=== PATIENT | female | born 1960 | race Caucasian/White ===

== ENCOUNTER 2016-10-02 07:56 | Day surgery (SDC) | payer BC ==
[2016-09-29 10:14] VITALS: BMI 27.9
--- NOTE | 2016-10-02 06:08 | P.GSHP ---
History of Present Illness H&P Date: 10/02/16 DATE OF CONSULTATION: 09/06/2016 CHIEF COMPLAINT: Bariatric assessment. HISTORY OF PRESENT ILLNESS: Mimi Barbour is a 56-year-old female with an adjustable gastric band. Her highest weight prior to surgical intervention was 217 pounds. Her lowest weight was 151 wounds. Now her usual weight is at 155 pounds. Today she comes in weighing 170 pounds. Her ideal body weight for her 5 feet 5-3/4 inch frame is 149 pounds. She has maintained a 102 pound weight loss. Percent excess weight loss is 83%. She comes in after a previous history of panniculectomy done 2 years ago. She reports that her port has a tendency to dislodge. Now she reports pain along her port site. She denies any heartburn. She is eating increased junk food. She presents with concerns of adjustable gastric band port. Her body mass index from 44.3 down to less than 30. PAST MEDICAL HISTORY: 1. Morbid obesity. 2. Depression. PAST SURGICAL HISTORY: 1. History of adjustable gastric band placement. 2. Panniculectomy. MEDICATIONS: 1. Topamax. 2. Zoloft. ALLERGIES: 1. CODEINE. 2. PENICILLIN. SOCIAL HISTORY: Lifelong nontobacco user. FAMILY HISTORY: Consistent with morbid obesity. REVIEW OF SYSTEMS: CONSTITUTIONAL: Rumsey body weight of 149 pounds for a 5 foot 5-3/4 inch frame. Total weight loss is of 102 pounds, highest weight of 272 pounds. Percent excess weight loss of 83%. HEENT: Denies troubles with vision or hearing. No reports of dysphagia. ENDOCRINE: No reports of thyroid disorder or diabetes type 2, RESPIRATORY: Denies any obstructive sleep apnea or dyspnea on exertion. CARDIOVASCULAR: Denies any chest pain or heart attack. GASTROINTESTINAL: Denies any gastroesophageal reflux disease. No reports of blood in stools. MUSCULOSKELETAL: Denies any diffuse joint pain. NEURO: No reports of stroke or seizure disorder. PSYCH: No reports of depression or suicidal ideation. HEMATOLOGIC: Denies any easy bruising or bleeding. PHYSICAL EXAM: VITAL SIGNS: 98.0m, 54, 16, 140/65, 5 foot 5-3/4 inch frame, 170 pounds, body mass index 27.7. GENERAL: A 56-year-old female in no acute distress. HEENT: No scleral icterus. Extraocular movements grossly intact. Moist mucosa. NECK: Supple, no lymphadenopathy. CHEST: Nonlabored respirations. Equal bilateral excursions. CARDIOVASCULAR: Regular rate and rhythm. ABDOMEN: Soft, nontender. Nondistended. Palpable lap band port left upper quadrant with tenderness. No further erythema. she presents for further. MUSCULOSKELETAL: No clubbing, cyanosis, or edema. NEURO: No focal or from appropriate affect. Alert and oriented to person, place, and time. PSYCH: Appropriate affect. Alert and oriented to person, place, and time. LABS: Hemoglobin 12.9 down low elevated at cholesterol elevated at 289, LDL elevated at 179, HDL elevated at 101, thiamine low at 36. ASSESSMENT: 1. Morbid obesity due to excess calories, resolved. 2. Body mass index reduced from 44.3 down to 27.7. 3. History of adjustable gastric band. 4. Malfunction of adjustable gastric band port with pain. 5. Thiamine deficiency. 6. Hypercholesterolemia. PLAN: 1. Recommend thiamine supplement, particularly with an infusion. 2. As she presents with discomfort and trouble from her port, would recommend revision of her adjustable gastric band port. 3. Deep venous thrombosis prophylaxis. 4. Antibiotic prophylaxis. 5. Recommend taking multivitamins daily as well. Past Medical History Past Medical History: Osteoarthritis (OA), Sleep Apnea/CPAP/BIPAP Additional Past Medical History / Comment(s): past hx. sleep apnea-doesn't need any tx. for anymore since weight loss, migraines History of Any Multi-Drug Resistant Organisms: None Reported Past Surgical History: Bariatric Surgery, Hysterectomy, Joint Replacement, Orthopedic Surgery Additional Past Surgical History / Comment(s): right knee replaced, lap band, carpal tunnel filomena., panniculectomy, arthroscopy knee Past Anesthesia/Blood Transfusion Reactions: No Reported Reaction Past Psychological History: Anxiety Smoking Status: Former smoker Past Alcohol Use History: None Reported Additional Past Alcohol Use History / Comment(s): quit smoking 16 yrs. ago, on & off for 16 yrs. Past Drug Use History: None Reported - Past Family History Sister(s) Family Medical History: Deep Vein Thrombosis (DVT) Brother(s) Family Medical History: Deep Vein Thrombosis (DVT) Medications and Allergies Home Medications Medication Instructions Recorded Confirmed Type Sertraline [Zoloft] 100 mg PO BID 09/05/16 09/29/16 History Topiramate [Topamax] 100 mg PO BID 09/05/16 09/29/16 History Estradiol [Estradiol] 1 patch TRANSDERM WESA 09/29/16 09/29/16 History Allergies Allergy/AdvReac Type Severity Reaction Status Date / Time codeine Allergy Chest Pain Verified 09/29/16 09:51 Penicillins Allergy Rash/Hives Verified 09/29/16 09:51
[~2016-10-02 07:56] MED LIST: ACETAMINOPHEN IV (For NPO) 1,000 MG in EMPTY BAG 1 BAG IVPB ONE; CHLORHEXIDINE GLUCONATE 15 ML CUP MUCOUS MEM ONE; DEXAMETHASONE SOD PHOSPHATE 10 MG/ML 1 ML VIAL IV ONE; ENOXAPARIN 40 MG/0.4 ML SYRINGE SQ STA; LACTATED RINGERS 1,000 ML IV SCH; LIDOCAINE 1% 20 ML VIAL (10MG/ML) FOR IV START INTRADERMA PRN; ONDANSETRON 4 MG/2 ML VIAL IVP ONE; PANTOPRAZOLE 40 MG/10 ML VIAL IV STA; SCOPOLAMINE 1.5MG/72HR PATCH TRANSDERM ONE; ceFAZolin 2 GM in SODIUM CHLORIDE 0.9% 100 ML IVPB ONE; fentaNYL (PF) 50 MCG/ML 2 ML AMP IV PRN
[2016-10-02] MEDS ORDERED: LIDOCAINE 1% 20 ML VIAL (10MG/ML) FOR IV START INTRADERMA ONE (08:36)
[2016-10-02] MEDS ORDERED: MIDAZOLAM 2 MG/2 ML VIAL IVP ONE ×2 (09:03)
[2016-10-02] MEDS: BUPIVACAINE LIPOSOME/PF 1.3% 20 ML, BUPIVACAIN-EPI 0.5%-1:200,000 25 ML, SODIUM CHLORID... MISCELLANE ONE ×6 (09:22→09:58)
[2016-10-02] MEDS ORDERED: fentaNYL (PF) 50 MCG/ML 2 ML AMP ONE (09:23)
[2016-10-02] MEDS ORDERED: SUCCINYLCHOLINE CHLORIDE 100 MG/5 ML SYR IV ONE (09:23)
[2016-10-02] MEDS ORDERED: LIDOCAINE 1% INJ 10MG/ML (20 ML MDV) ONE (09:23)
[2016-10-02] MEDS ORDERED: NEOSTIGMINE 1 MG/ML 10 ML VIAL ONE (09:23)
[2016-10-02] MEDS ORDERED: ROCURONIUM BROMIDE 10 MG/ML 10 ML VIAL IV ONE (09:23)
[2016-10-02] MEDS ORDERED: MIDAZOLAM 2 MG/2 ML VIAL ONE (09:23)
[2016-10-02] MEDS ORDERED: GLYCOPYRROLATE 0.2 MG/ML 2 ML VIAL ONE (09:23)
[2016-10-02] MEDS ORDERED: PROPOFOL 10 MG/ML 20 ML VIAL IV ONE (09:23)
[2016-10-02] MEDS ORDERED: PHENYLEPHRINE-0.9% NACL SYG 1 MG/10 ML SYRINGE ONE (09:23)
[2016-10-02] MEDS ORDERED: LACTATED RINGERS 1,000 ML IV ONE (10:08)
--- NOTE | 2016-10-02 10:29 | P.PCN ---
Date of Procedure: 10/02/16 Preoperative Diagnosis: Chin of adjustable gastric band port, history of morbid obesity, history of adjustable gastric band Postoperative Diagnosis: Same Procedure(s) Performed: Operative intervention of adjustable gastric band port left upper quadrant, adjustment of gastric band 1 mL removed Anesthesia: KASIA, local Surgeon: Heather Quiles Estimated Blood Loss (ml): 1 Pathology: none sent Condition: stable Disposition: same day Operative Findings: Adjustable gastric band port while patient is sitting rubs against inferior rest of left costal margin, port adjusted 3 fingerbreadths along the inferior lateral portion, 5 cm oblique. 1 mL of fluid removed, to accommodate for postoperative swelling and prevention of postoperative nausea and vomiting
[2016-10-02 10:48] VITALS: TEMP 97.9
[2016-10-02 10:54] VITALS: RESP 16
[2016-10-02 11:59] VITALS: PULSE 60
[2016-10-02 12:21] VITALS: BP 105/59
--- NOTE | 2016-10-15 22:30 | P.OP ---
Date of Procedure: 10/02/16 Description of Procedure: DATE OF SERVICE: 10/02/2016 SURGEON: ZAIN CHRISTIE MD QUALITY ASSISTANT: NONE. PREOPERATIVE DIAGNOSES: 1. Malposition of adjustable gastric band port. 2. History of adjustable gastric band. 3. Prior history of morbid obesity, now resolved. 4. Overweight. 5. Body mass index of 27.3. 6. Left upper quadrant abdominal pain. POSTOPERATIVE DIAGNOSES: 1. Malposition of adjustable gastric band port. 2. History of adjustable gastric band. 3. Prior history of morbid obesity, now resolved. 4. Overweight. 5. Body mass index of 27.3. 6. Left upper quadrant abdominal pain. OPERATION: 1. Open revision of adjustable gastric band port left upper quadrant. 2. Adjustment of adjustable gastric band port removal of 1 mL normal saline. ANESTHESIA: General with 85 mL Exparel, Sensorcaine and normal saline mixture. ESTIMATED BLOOD LOSS: 1 mL. SPECIMENS REMOVED: None. COMPLICATIONS: None. INDICATIONS: Mimi Barbour is a 56-year-old female with prior history of laparoscopic adjustable gastric band done many years ago. She had a panniculectomy with repositioning of her adjustable gastric band port and has had left upper quadrant abdominal pain from the port site. Surgical intervention with repositioning of her port was described at length including the possibility of a new port placement. Benefits and risks were thoroughly reviewed. Informed consent was obtained. DESCRIPTION OF PROCEDURE: Patient was brought to the operating room, laid in supine position. After general induction, the abdomen had been prepped and draped in a standard sterile fashion. Prior to incision, a timeout protocol was confirmed with surgical team regarding the patient's name including procedures to be performed. Preoperative medications were also confirmed. Attention was brought to the abdomen whereby she had a previous panniculectomy site as well as the umbilicus was in the wrong anatomical position at least fingerbreadths above the anterior/superior iliac spine along the midline. The port was found within one fingerbreadth of the left costal margin. Preoperatively in the preop area, the patient's new port site was marked while she was sitting up at bedside. The skin was localized. Next along her previous longitudinal incision of the left upper quadrant, the skin was localized. A #15 blade was used to open her previous incision. The skin edges were elevated using Adson's. The subcutaneous tissue was dissected using electro-Bovie cautery. Next the port was palpated superiorly along the skin incision. The edge of the port was palpated and dissected free using hemostats. Electro- Bovie cautery was used without any injury to the actual port. The port was circumferentially dissected using hemostat, as well as blunt dissection. The port was released and brought out onto the skin. Please note that an Ioban draping was placed to avoid any contamination of the implant on the skin olga. The new port site was identified and a tunnel through the subcutaneous tissue along the fascia was prepared. A Marlex mesh was cut along the base of the port and attached using 0 Prolene at each quadrant. After the pocket had been developed, the adjustable gastric band port was adjusted. A minimum of 5 mL of normal saline was found within her port. One mL of fluid was removed to accommodate for postoperative swelling including minimize risk of postoperative nausea and vomiting. The port was placed along the new tunnel pocket of the left abdomen. The new port site was placed 3 fingerbreadths and lateral along the previous port site which measurement was consistent with 5 cm in oblique fashion. The port was positioned and the port was attached to the subcutaneous tissue and deep fascia using 0 Vicryl. The subcutaneous pocket was closed using 0 Vicryl. The dermis was reapproximated using 3-0 Vicryl in interrupted fashion. A 4-0 Monocryl in a running fashion was placed. Skin was cleansed and Dermabond was placed. Once dried, half-inch Steri-Strips were placed lengthwise. A total of 85 mL Exparel normal saline mixture was place for postop analgesia. Patient was transferred onto the bed and abdominal binder was applied. At the end of the procedure, needle, sponge, and instrument count had been verified correct by the surgical corsetier. The patient had tolerated the procedure well and was taken to the postanesthesia care unit in stable condition. FINDINGS: 1. Port near the left costal margin now repositioned approximately 3 fingerbreadths lower to accommodate for sitting. 2. No injury occurred to the adjustable gastric band port. 3. At least 5 mL of normal saline found in her port. 4. One mL of normal saline removed.
== END 2016-10-02 12:49 | disposition home or self-care (01) ==
LOC: OR 07:56
PROVIDERS: ATTEND Surgery Plastic and Reconstructive Surgery
DX: T85.628A Displacement of other specified internal prosthetic devices, implants and grafts, initial encounter (principal); Z98.84 Bariatric surgery status; E66.3 Overweight; Z68.27 Body mass index [BMI] 27.0-27.9, adult; F41.9 Anxiety disorder, unspecified; F32.9 Major depressive disorder, single episode, unspecified; Z79.899 Other long term (current) drug therapy; Z88.5 Allergy status to narcotic agent; Z88.0 Allergy status to penicillin
CPT/HCPCS: 43886; C1781; J2250; J1100; J2710; J0690; J2405; J2001; J1650; J3010; J0131; J2370; J0330; C9290; J2704; C9113

== ENCOUNTER → 2016-10-05 | Outpatient (CLI) | payer BC ==
[2016-10-05 12:08] VITALS: BP 120/58; PULSE 60; RESP 14; TEMP 98.4; BMI 27.6
--- NOTE | 2016-10-15 21:00 | P.PN ---
Progress Note - Text DATE OF SERVICE: 10/05/2016 CHIEF COMPLAINT: Follow up port revision. HISTORY OF PRESENT ILLNESS: Mimi Barbour is a 56-year-old female who is status post port revision of 10/02/2016. She is now postop day #3. Initially, she had moderate discomfort from her port, as it had rubbed against her left rib. Now she states that this is improved. She is able to walk and raise her hands and comb her hair without discomfort. She is wearing an abdominal binder. She reports overall soreness as to be expected. She has done extremely well with her weight loss, maintaining 102 pounds. Percent excess weight loss is 71%. PHYSICAL EXAM: VITAL SIGNS: 98.4, 60, 14, 120/58; 5 feet 5-3/4, 170 pounds. Body mass index 27.7. ABDOMEN: No signs of erythema or infection. No palpable seroma. Abdominal binder was reapplied. Her port site is well-attached and flushed along the abdominal wall. GENERAL: Well developed female in no acute distress. HEENT: No scleral icterus. Extraocular movements grossly intact. Moist mucosa. NECK: Supple, no lymphadenopathy. CHEST: Nonlabored respirations. Equal bilateral excursions. CARDIOVASCULAR: Regular rate and rhythm. MUSCULOSKELETAL: No clubbing, cyanosis, or edema. NEURO: No focal or from appropriate affect. Alert and oriented to person, place, and time. PSYCH: Appropriate affect. Alert and oriented to person, place, and time. ASSESSMENT: 1. History of morbid obesity due to excess calories, improved. 2. Body mass index reduced from 44.3 down to 27.7. 3. Status post port revision. 4. History of adjustable gastric band. PLAN: 1. She had 1 mL of fluid removed from her band at the time of the procedure. She did report having intermittent nausea which is likely secondary to edema from recent surgery. 2. Recommend adjustment in approximately 3 to 4 weeks as swelling around the port site should improve. 3. On exam, her port site is well-attached and flushed along the abdominal wall. 4. I have recommended wearing abdominal binder at all times to minimize discomfort. 5. Overall, she has done extremely well with her weight loss, maintaining 102 pounds. Percent excess weight loss is 71%.
== END | disposition home or self-care (01) ==
LOC: BARWHC3 11:16
PROVIDERS: ATTEND Surgery Plastic and Reconstructive Surgery
DX: Z48.815 Encounter for surgical aftercare following surgery on the digestive system (principal); Z98.84 Bariatric surgery status; E66.01 Morbid (severe) obesity due to excess calories; Z68.27 Body mass index [BMI] 27.0-27.9, adult
CPT/HCPCS: 99211

== ENCOUNTER → 2016-10-18 | Outpatient (CLI) | payer BC ==
[2016-10-18 14:45] VITALS: BP 109/53; PULSE 65; RESP 16; TEMP 98.1; BMI 28.0
--- NOTE | 2016-10-29 12:27 | P.PN ---
Progress Note - Text DATE OF SERVICE: 10/18/2016 CHIEF COMPLAINT: Followup band revision. HISTORY OF PRESENT ILLNESS: Mimi Barbour is a 56-year-old female who is status post revision of her port on 10/02/2016. She is now 2 weeks out. She actually comes in with concerns about irritation of her left rib. She has been wearing an abdominal binder at all times that provides some comfort. Upon her last visit over 1 week ago her nausea is now resolved. She no longer reports pain from her port site. She occasionally uses ibuprofen for pain. She is pending a trip on which she would like to eat as she likes and then have an adjustment following. Her highest weight for her 5-foot 5-3/4-inch frame is 305 pounds. Her ideal body weight is 149 pounds. Today she comes in weighing 172 pounds. She her last visit 2 weeks ago, she has actually gained 2.2 pounds. Percent excess weight loss is maintained at 85%. Body mass index has been reduced from 49.7 to 28. PHYSICAL EXAM: VITAL SIGNS: 98.1, 65, 16, 109/53, 5 feet 5-3/4 inches, 172 pounds. Body mass index of 28. GENERAL: Well-developed pleasant female in no acute distress. ABDOMEN: No redness or erythema over the port site. Port is well reapproximated onto the fascia. Pinpoint tenderness along the left costal margin, more consistent with placement of her abdominal binder. Her abdominal binder was placed. HEENT: No scleral icterus. Extraocular movements grossly intact. Moist mucosa. NECK: Supple, no lymphadenopathy. CHEST: Nonlabored respirations. Equal bilateral excursions. CARDIOVASCULAR: Regular rate and rhythm. MUSCULOSKELETAL: No clubbing, cyanosis, or edema. NEURO: No focal or from appropriate affect. Alert and oriented to person, place, and time. PSYCH: Appropriate affect. Alert and oriented to person, place, and time. ASSESSMENT: 1. History of adjustable gastric band port discomfort. 2. Revision of adjustable gastric band port. 3. History of morbid obesity due to excess calories, improved. 4. Body mass index reduced from 44.3 to 27.7. 5. Left costal margin pain. PLAN: 1. She did have 1 mL of fluid removed from her band. Her nausea is now resolved. She may benefit from adjustment; however, she has asked to defer this at this time. 2. Regarding her left rib pain, this is consistent with where her binder actually causing rubbing sensation. She has no signs of erythema or infection at her port site. 3. I have recommended band adjustment after her return from her trip.
== END | disposition home or self-care (01) ==
LOC: BARWHC3 13:59
PROVIDERS: ATTEND Surgery Plastic and Reconstructive Surgery
DX: Z48.815 Encounter for surgical aftercare following surgery on the digestive system (principal); Z98.84 Bariatric surgery status; Z68.27 Body mass index [BMI] 27.0-27.9, adult; R07.89 Other chest pain
CPT/HCPCS: 99211

== ENCOUNTER → 2016-11-09 | Outpatient (CLI) | payer BC ==
[2016-11-09 09:02] VITALS: BP 119/56; PULSE 54; RESP 16; TEMP 98.4; BMI 27.7
--- NOTE | 2016-12-10 17:34 | P.PN ---
Progress Note - Text DATE OF SERVICE: 11/09/2016 CHIEF COMPLAINT: Follow up port revision. HISTORY OF PRESENT ILLNESS: Mimi Barbour is a 56-year-old female who is status post revision of her port on 10/02/2016. She is now 1-1/2 months out. She does report intolerance to fatty foods including right upper quadrant epigastric abdominal pain. She also has a family history of gallbladder disorder. Now she presents for adjustment of her band. Her ideal body weight for a 5 foot 5-3/4 inch frame is 149 pounds. Her initial weight was 305 pounds. Today she comes in weighing 170 pounds. Total lifetime weight loss is 135 pounds. She has lost approximately 2 pounds since her evaluation 3 weeks ago. Body mass index is reduced from 49.7 down to 27.7. Total BMI point reduction is 22. Percent excess weight loss is 86%. PHYSICAL EXAM: VITAL SIGNS: 98.4, 54, 16, 119/56, 5 foot 5-3/4 inches frame, 170 pounds. Body mass index 27.7. ABDOMEN: Soft. No erythema or swelling noted along the port site. Incision well-granulated. GENERAL: Well-developed pleasant female in no acute distress. HEENT: No scleral icterus. Extraocular movements grossly intact. Moist mucosa. NECK: Supple, no lymphadenopathy. CHEST: Nonlabored respirations. Equal bilateral excursions. CARDIOVASCULAR: Regular rate and rhythm. MUSCULOSKELETAL: No clubbing, cyanosis, or edema. NEURO: No focal or from appropriate affect. Alert and oriented to person, place, and time. PSYCH: Appropriate affect. Alert and oriented to person, place, and time. ASSESSMENT: 1. History of adjustable gastric port discomfort/malfunction. 2. Status post revision of adjustable gastric band port. 3. Previous history of morbid obesity, now resolved. 4. Body mass index reduced from 49.7 down to 27.7. 5. Adjustment of adjustable gastric band. 6. Family history of gallbladder disease. PLAN: 1. Recommend adjustment of her band. 2. With her symptoms of fatty food intolerance including family history of gallbladder disease, I have asked her to be cautious fatty foods. 3. May need additional testing between a HIDA scan and an ultrasound of the gallbladder as well. 4. Recommend followup in approximately 2 to 3 weeks following her adjustment. PROCEDURE: Adjustment of gastric band. DESCRIPTION: After verbal consent, the patient was laid supine. Skin along the left upper quadrant was cleansed using ChloraPrep. Using a non-core 22-gauge Sung needle, the port was accessed. With sitting up and drinking water, her band was adjusted; 0.4 mL of fluid was added. Total of 4.4 mL of fluid confirmed. Patient had tolerated the procedure well. Recommended followup in approximately 2 to 3 weeks.
== END | disposition home or self-care (01) ==
LOC: BARWHC3 08:50
PROVIDERS: ATTEND Surgery Plastic and Reconstructive Surgery
DX: Z48.815 Encounter for surgical aftercare following surgery on the digestive system (principal); Z98.84 Bariatric surgery status; R11.2 Nausea with vomiting, unspecified; Z68.27 Body mass index [BMI] 27.0-27.9, adult; K91.2 Postsurgical malabsorption, not elsewhere classified; T85.848A Pain due to other internal prosthetic devices, implants and grafts, initial encounter; K95.09 Other complications of gastric band procedure
CPT/HCPCS: 99212

== ENCOUNTER → 2016-11-30 | Outpatient (CLI) | payer BC ==
[~2016-11-30] MED LIST changes: -ACETAMINOPHEN IV (For NPO) 1,000 MG in EMPTY BAG 1 BAG IVPB ONE; -CHLORHEXIDINE GLUCONATE 15 ML CUP MUCOUS MEM ONE; -DEXAMETHASONE SOD PHOSPHATE 10 MG/ML 1 ML VIAL IV ONE; -ENOXAPARIN 40 MG/0.4 ML SYRINGE SQ STA; -LACTATED RINGERS 1,000 ML IV SCH; -LIDOCAINE 1% 20 ML VIAL (10MG/ML) FOR IV START INTRADERMA PRN; -ONDANSETRON 4 MG/2 ML VIAL IVP ONE; -PANTOPRAZOLE 40 MG/10 ML VIAL IV STA; -SCOPOLAMINE 1.5MG/72HR PATCH TRANSDERM ONE; +SODIUM CHLORIDE 0.9% 1,000 ML IV NR; -ceFAZolin 2 GM in SODIUM CHLORIDE 0.9% 100 ML IVPB ONE; -fentaNYL (PF) 50 MCG/ML 2 ML AMP IV PRN
[2016-11-30 12:30] VITALS: BP 110/65; PULSE 65; TEMP 98.5; BMI 27.3
--- NOTE | 2016-11-30 15:50 | CT ---
EXAMINATION TYPE: CT abdomen pelvis w con DATE OF EXAM: 11/30/2016 3:39 PM HISTORY: Patient states possible fistula. Left lower quadrant pain and change in bowel habits per ord er. CT DLP: 1405mGycm Automated Exposure Control for Dose Reduction was Utilized. CONTRAST: CT scan of the abdomen and pelvis is performed without oral but with IV Contrast, patient injected wi th 100 mL of Omnipaque 300. COMPARISON: None. FINDINGS: LUNG BASES: No significant abnormality is appreciated. LIVER/GB: No significant abnormality is appreciated. PANCREAS: No significant abnormality is seen. SPLEEN: No significant abnormality is seen. ADRENALS: No significant abnormality is seen. KIDNEYS: Subcentimeter low dense lesion anteriorly mid pole level left kidney on series 7 image 30 is too small to further characterize per presumed benign. There is 2 mm nonobstructing calculus mid brittany e level right kidney on axial image 33 series 3. Occasional pelvic phlebolith is seen. No suspicious nondependent air in bladder is noted. BOWEL: The evaluation of bowel is suboptimal due to lack of enteric contrast. Lap band device is low in position roughly 2.7 cm from the diaphragmatic hiatus. The phi angle is roughly [address] ba nd slippage is suspected as there is gastric prominence above the band noted. There is no suspicious small or large bowel dilatation identified. No suspicious surrounding inflamma tory change is identified. UTERUS/ADNEXA: Uterus is surgically absent. LYMPH NODES: No greater than 1cm abdominal or pelvic lymph nodes are appreciated. OSSEOUS STRUCTURES: No significant abnormality is seen. OTHER: No significant additional abnormality is seen. IMPRESSION: No suspicious finding to suggest active bowel inflammation or fistulous communication to the bladder. CT findings suggest lap band slippage as noted above.
--- NOTE | 2016-12-01 08:17 | US ---
EXAMINATION TYPE: US gallbladder DATE OF EXAM: 11/30/2016 3:16 PM COMPARISON: on PACS CLINICAL HISTORY: R10.11 RUQ pain. Lap band modification Sep 2016. Nausea. EXAM MEASUREMENTS: Liver Length: 14.4 cm Gallbladder Wall: 0.1 cm CBD: 0.3 cm CHD: 0.3 cm Right Kidney: 9.9 x 4.7 x 4.8 cm TECHNOLOGIST IMPRESSION: Pancreas: tail not seen due to overlying bowel gas Liver: wnl Gallbladder: wnl The gallbladder wall measures 1.4 mm. Evidence for sonographic Canales's sign: neg CBD: wnl CHD: wnl Right Kidney: Lateral mid pole echogenic focus - 0.4 x 0.4 cm. Medial anechoic lesion at hilum - 1. 1 x 1.4 x 0.9 cm. Lesion in the hilum of the right kidney is likely an extrarenal pelvis. The echogenic focus within th e mid polar region of the right kidney does not shadow and may represent an angiomyolipoma. IMPRESSION: 1. NO ACUTE RIGHT UPPER QUADRANT ABNORMALITY. 2. RIGHT KIDNEY DESCRIBED ABOVE.
--- NOTE | 2016-12-31 07:18 | PN ---
DATE OF SERVICE: 11/30/2016 CHIEF COMPLAINT: Abdominal pain. HISTORY OF PRESENT ILLNESS: Mimi Barbour is a 56-year-old female who reports seeing her body bumper as she has noticed stool coming through her vagina. She has not had a previous colonoscopy. She reports increased abdominal pain. No reports or troubles with her band however. At her height of 5 feet 5 inches, her ideal body weight is 149 pounds. Her highest weight was 305 pounds. Today she comes in weighing 168 pounds. She has maintained 137-pound weight loss. Percent excess weight loss is 80%. She is only 19 pounds overweight. Body mass index is reduced from 49.7 down to 27.3. Total BMI point reduction is reduced by 22.4. She does have a family history of gallbladder disorder including severity of symptoms and now presents for further evaluation and management. PHYSICAL EXAMINATION: VITAL SIGNS: 98.5, 65, 16, 110/65, 5 foot 5-3/4 inches frame, 168 pounds. Body mass index 27.3. ABDOMEN: Left lower quadrant abdominal pain. No peritonitis. Port site showed no edema. No sign of infection or cellulitis. GENERAL: Well-developed pleasant female in no acute distress. HEENT: No scleral icterus. Extraocular movements grossly intact. Moist mucosa. NECK: Supple, no lymphadenopathy. CHEST: Nonlabored respirations. Equal bilateral excursions. CARDIOVASCULAR: Regular rate and rhythm. MUSCULOSKELETAL: No clubbing, cyanosis, or edema. NEURO: No focal or from appropriate affect. Alert and oriented to person, place, and time. PSYCH: Appropriate affect. Alert and oriented to person, place, and time. ASSESSMENT: 1. Left lower quadrant abdominal pain. 2. Probable diverticulitis. 3. 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 4. Family history of gallbladder disease. PLAN: 1. Recommend CT of the abdomen and pelvis as diverticulitis cannot be excluded. 2. Also would benefit from a lower endoscopy for colovaginal fistula. 3. I did discuss with her that with her symptoms, recommend treatment with ciprofloxacin for diverticulitis. 4. Also recommend follow-up with body bumper in the interim. 5. She does have a family history of gallbladder disorders and would recommend ultrasound of the gallbladder as well. [facility]ITALPadmaja
--- NOTE | 2017-01-04 06:40 | P.PN ---
Progress Note - Text DATE OF SERVICE: 11/30/2016 CHIEF COMPLAINT: Abdominal pain. 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 She has not had a previous colonoscopy. She reports increased abdominal pain. No reports or troubles with her band however. At her height of 5 feet 5 inches, her ideal body weight is 149 pounds. Her highest weight was 305 pounds. Today she comes in weighing 168 pounds. She has maintained 137-pound weight loss. Percent excess weight loss is 80%. She is only 19 pounds overweight. Body mass index is reduced from 49.7 down to 27.3. Total BMI point reduction is reduced by 22.4. She does have a family history of gallbladder disorder including severity of symptoms and now presents for further evaluation and management. PHYSICAL EXAMINATION: VITAL SIGNS: 98.5, 65, 16, 110/65, 5 foot 5-3/4 inches frame, 168 pounds. Body mass index 27.3. ABDOMEN: Left lower quadrant abdominal pain. No peritonitis. Port site showed no edema. No sign of infection or cellulitis. GENERAL: Well-developed pleasant female in no acute distress. HEENT: No scleral icterus. Extraocular movements grossly intact. Moist mucosa. NECK: Supple, no lymphadenopathy. CHEST: Nonlabored respirations. Equal bilateral excursions. CARDIOVASCULAR: Regular rate and rhythm. MUSCULOSKELETAL: No clubbing, cyanosis, or edema. NEURO: No focal or from appropriate affect. Alert and oriented to person, place, and time. PSYCH: Appropriate affect. Alert and oriented to person, place, and time. ASSESSMENT: 1. Left lower quadrant abdominal pain. 2. Probable diverticulitis. 3. 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 4. Family history of gallbladder disease. PLAN: 1. Recommend CT of the abdomen and pelvis as diverticulitis cannot be excluded. 2. Also would benefit from a lower endoscopy for colovaginal fistula. 3. I did discuss with her that with her symptoms, recommend treatment with ciprofloxacin for diverticulitis. 4. Also recommend follow-up with school age lead teacher in the interim. 5. She does have a family history of gallbladder disorders and would recommend ultrasound of the gallbladder as well.
== END | disposition home or self-care (01) ==
LOC: BARWHC3 12:16
PROVIDERS: ATTEND Surgery Plastic and Reconstructive Surgery
DX: Z48.815 Encounter for surgical aftercare following surgery on the digestive system (principal); E66.01 Morbid (severe) obesity due to excess calories; K57.32 Diverticulitis of large intestine without perforation or abscess without bleeding; R19.4 Change in bowel habit; K81.1 Chronic cholecystitis; N28.9 Disorder of kidney and ureter, unspecified; Z98.84 Bariatric surgery status
CPT/HCPCS: 76705; 74177; 99211; Q9967

== ENCOUNTER → 2016-11-30 | Outpatient (CLI) | payer BC ==
[~2016-11-30] MED LIST changes: -SODIUM CHLORIDE 0.9% 1,000 ML IV NR; +SODIUM CHLORIDE 0.9% 500 ML in EMPTY BAG 1 BAG IV PRN
[2016-11-30] MEDS: SODIUM CHLORIDE 0.9% 1,000 ML in EMPTY BAG 1 BAG IV PRN ×2 (12:00→13:15)
[2016-11-30 12:04] VITALS: BP 112/54; PULSE 53; RESP 18; TEMP 98.2
[2016-11-30 12:19] LABS: Basophils # (A) 0.1 k/uL (0-0.2); Basophils % (A) 1 %; CH 32.4; CHCM 33.5; Eosinophils # (A) 0.4 k/uL (0-0.7); Eosinophils % (A) 7 %; HCT 43.6 % (34.0-46.0); HDW 2.63; HGB 14.5 gm/dL (11.4-16.0); Luc # (Auto) 0.15; Luc % (Auto) 3; Lymphocytes # (A) 1.4 k/uL (1.0-4.8); Lymphocytes % (A) 25 %; MCH 32.3 pg (25.0-35.0); MCHC 33.3 g/dL (31.0-37.0); MCV 97.1 fL (80.0-100.0); Mean Platelet Volume 8.3; Monocytes # (A) 0.3 k/uL (0-1.0); Monocytes % (A) 5 %; Neutrophils # (A) 3.3 k/uL (1.3-7.7); Neutrophils % (A) 60 %; RBC 4.49 m/uL (3.80-5.40); RDW 13.2 % (11.5-15.5); WBC 5.5 k/uL (3.8-10.6)
[2016-11-30 12:33] LABS: ALT 27 U/L (9-52); AST 19 U/L (14-36); Alkaline Phosphatase 53 U/L (38-126); Anion Gap 8 mmol/L; Blood Urea Nitrogen 9 mg/dL (7-17); Calcium 9.5 mg/dL (8.4-10.2); Carbon Dioxide 28 mmol/L (22-30); Chloride 107 mmol/L (98-107); Glucose 92 mg/dL (74-99); Non-African American GFR(MDRD) >60 (>60 ml/min/1.73 sqM); Potassium 4.1 mmol/L (3.5-5.1); Sodium 143 mmol/L (137-145); Total Bilirubin 0.7 mg/dL (0.2-1.3); Total Protein 7.3 g/dL (6.3-8.2)
== END | disposition home or self-care (01) ==
LOC: BARWHC3 09:59
PROVIDERS: ATTEND Surgery Plastic and Reconstructive Surgery
DX: E66.01 Morbid (severe) obesity due to excess calories (principal); K57.92 Diverticulitis of intestine, part unspecified, without perforation or abscess without bleeding; K81.1 Chronic cholecystitis; E86.0 Dehydration
CPT/HCPCS: 80053; 85025; 96360; 96361

== ENCOUNTER → 2016-12-27 | Outpatient (CLI) | payer BC ==
[2016-12-27 15:56] VITALS: BP 109/70; PULSE 51; RESP 16; TEMP 97.8; BMI 27.3
--- NOTE | 2017-01-22 20:58 | P.PN ---
Progress Note - Text DATE OF SERVICE: 12/27/2016 CHIEF COMPLAINT: Lower abdominal pain. HISTORY OF PRESENT ILLNESS: Mimi Barbour is a 56-year-old female who reports a personal history of endometriosis including chronic pelvic pain. From her last visit a little over a month ago, she had left lower quadrant abdominal pain, with questionable features of diverticulitis. She reports that while being started on ciprofloxacin she had burning of the abdomen. She denies any diarrhea. She reports change in bowel habits. She has not had a previous colonoscopy. Now she presents for further evaluation and management. PAST MEDICAL HISTORY: 1. Morbid obesity, now resolved. 2. Depression. 3. Endometriosis. 4. Sleep apnea. 5. Osteoarthritis. PAST SURGICAL HISTORY: 1. History of adjustable gastric band placement. 2. Panniculectomy. 3. Revision of port of her adjustable gastric band. MEDICATIONS: 1. Topamax. 2. Zoloft. ALLERGIES: 1. CODEINE. 2. PENICILLIN. SOCIAL HISTORY: Lifelong nontobacco user. FAMILY HISTORY: Consistent with morbid obesity. REVIEW OF SYSTEMS: CONSTITUTIONAL: [place] body weight of 149 pounds for her 5 feet 5-3/4 inch frame. Initial weight of 305 pounds. Maintained weight loss of over 86%. GASTROINTESTINAL: Reports change in bowel habits, including stool through her vagina. PSYCH: History of depression without recent suicidal ideation. RESPIRATORY: History of obstructive sleep apnea. HEENT: Denies troubles with vision or hearing. No reports of dysphagia. ENDOCRINE: No reports of thyroid disorder or diabetes type 2, CARDIOVASCULAR: Denies any chest pain or heart attack. MUSCULOSKELETAL: Denies any diffuse joint pain. NEURO: No reports of stroke or seizure disorder. HEMATOLOGIC: Denies any easy bruising or bleeding. PHYSICAL EXAM: VITAL SIGNS: 97.8, 51, 16, 109/70, 5 foot 5-3/4 inch, 183 pounds. Body mass index of 27.3. ABDOMEN: Soft, nontender, without any palpable incisional hernias. Also new onset mobility of her port. GENERAL: A 56-year-old female in no acute distress. HEENT: No scleral icterus. Extraocular movements grossly intact. Moist mucosa. NECK: Supple, no lymphadenopathy. CHEST: Nonlabored respirations. Equal bilateral excursions. CARDIOVASCULAR: Regular rate and rhythm. MUSCULOSKELETAL: No clubbing, cyanosis, or edema. NEURO: No focal or from appropriate affect. Alert and oriented to person, place, and time. PSYCH: Appropriate affect. Alert and oriented to person, place, and time. STUDIES: CT of the abdomen and pelvis was reviewed in detail with imaging, alongside with her . Findings demonstrated no acute colitis of the descending colon. Interestingly enough, her band position was found to be prolapsed, consistent with gastric prolapse. Band slippage also identified. No evidence of bowel obstruction noted. Ultrasound of the gallbladder was negative for gallstones. CT scan confirmed no evidence of angiolipoma of the kidneys or adrenal glands. ASSESSMENT: 1. Left lower quadrant abdominal pain. 2. Change in bowel habits. 3. History of endometriosis. 4. Family history of gallbladder disease. PLAN: 1. On her CT scan there is a new finding of adjustable gastric band slippage and prolapse. I discussed with her symptoms of gastric slippage including increased gastroesophageal reflux disease and epigastric abdominal pain, which she finally had disclosed to me alongside with her . At this time she does not want any additional procedures done to her band. 2. With her change in bowel habits and negative findings of diverticulitis on her CT scan, recommend lower endoscopy for further evaluation and management. Per the patient and her , they are seeking more urgent upper and lower endoscopy, which will be arranged. 3. With her history of endometriosis, I recommended follow up with her histopathology technician for additional evaluation. 4. Further recommendations are pending completion of upper and lower endoscopy.
== END | disposition home or self-care (01) ==
LOC: BARWHC3 14:31
PROVIDERS: ATTEND Surgery Plastic and Reconstructive Surgery
DX: Z48.815 Encounter for surgical aftercare following surgery on the digestive system (principal); R19.4 Change in bowel habit; K31.89 Other diseases of stomach and duodenum; K95.09 Other complications of gastric band procedure; N80.9 Endometriosis, unspecified; F32.9 Major depressive disorder, single episode, unspecified; Z88.8 Allergy status to other drugs, medicaments and biological substances; Z88.0 Allergy status to penicillin; Z68.27 Body mass index [BMI] 27.0-27.9, adult
CPT/HCPCS: 99211

== ENCOUNTER 2017-01-01 08:33 | Day surgery (SDC) | payer BC ==
[2016-12-29 10:26] VITALS: BMI 27.9
--- NOTE | 2017-01-01 07:19 | P.GSHP ---
History of Present Illness H&P Date: 01/01/17 CHIEF COMPLAINT: Colon screen HISTORY OF PRESENT ILLNESS: The patient is a 56-year-old female who presents for first colon screen. Lower endoscopy was offered for further evaluation and management. PAST MEDICAL HISTORY: Please see list. PAST SURGICAL HISTORY: Please see list. MEDICATIONS: Please see list. ALLERGIES: Please see list. SOCIAL HISTORY: No illicit drug use FAMILY HISTORY: No reports of Crohn disease or ulcerative colitis. REVIEW OF ORGAN SYSTEMS: CONSTITUTIONAL: No reports of fevers or chills. PHYSICAL EXAM: VITAL SIGNS: Stable GENERAL: Well-developed pleasant in no acute distress. HEENT: No scleral icterus. Extraocular movements grossly intact. Moist buccal mucosa. NECK: Supple without lymphadenopathy. CHEST: Unlabored respirations. Equal bilateral excursions. CARDIOVASCULAR: Regular rate and rhythm. Distal 2+ pulses. ABDOMEN: Soft, nontender, nondistended. MUSCULOSKELETAL: No clubbing, cyanosis, or edema. ASSESSMENT: 1. Colon screen. PLAN: 1. Recommend proceeding with a lower endoscopy Past Medical History Past Medical History: Osteoarthritis (OA), Sleep Apnea/CPAP/BIPAP Additional Past Medical History / Comment(s): past hx. sleep apnea-doesn't need any tx. for anymore since weight loss, migraines, chronic diarrhea, left lower abd. pain History of Any Multi-Drug Resistant Organisms: None Reported Past Surgical History: Bariatric Surgery, Hysterectomy, Joint Replacement, Orthopedic Surgery Additional Past Surgical History / Comment(s): right knee replaced, lap band, carpal tunnel filomena., panniculectomy, arthroscopy knee Past Anesthesia/Blood Transfusion Reactions: No Reported Reaction Past Psychological History: Anxiety Smoking Status: Former smoker Past Alcohol Use History: None Reported Additional Past Alcohol Use History / Comment(s): quit smoking 16 yrs. ago, on & off for 16 yrs. Past Drug Use History: None Reported - Past Family History Sister(s) Family Medical History: Deep Vein Thrombosis (DVT) Brother(s) Family Medical History: Deep Vein Thrombosis (DVT) Medications and Allergies Home Medications Medication Instructions Recorded Confirmed Type Sertraline [Zoloft] 100 mg PO BID 09/05/16 12/29/16 History Topiramate [Topamax] 100 mg PO BID 09/05/16 12/29/16 History Estradiol [Estradiol] 1 patch TRANSDERM WESA 09/29/16 12/29/16 History Cholecalciferol (Vitamin D3) 10,000 unit PO DAILY 12/29/16 12/29/16 History [Vitamin D3] Allergies Allergy/AdvReac Type Severity Reaction Status Date / Time codeine Allergy Chest Pain Verified 12/29/16 10:05 Penicillins Allergy Rash/Hives Verified 12/29/16 10:05
[~2017-01-01 08:33] MED LIST changes: +LACTATED RINGERS 1,000 ML IV SCH; +LIDOCAINE 1% 20 ML VIAL (10MG/ML) FOR IV START INTRADERMA PRN; -SODIUM CHLORIDE 0.9% 500 ML in EMPTY BAG 1 BAG IV PRN
[2017-01-01 08:52] VITALS: TEMP 97
[2017-01-01] MEDS ORDERED: PROPOFOL 10 MG/ML 20 ML VIAL IV ONE (09:17)
[2017-01-01 09:43] VITALS: RESP 16
--- NOTE | 2017-01-01 09:48 | P.PCN ---
Date of Procedure: 01/01/17 Description of Procedure: PREOPERATIVE DIAGNOSIS: Colonoscopy screening. POSTOPERATIVE DIAGNOSIS: Colonoscopy screening. OPERATION: Colonoscopy to the ascending colon. SURGEON: Heather Quiles MD. ANESTHESIA: MAC. INDICATIONS: The patient is a 56-year-old female who presents for her first colonoscopy screening. Benefits and risks were described and informed consent was obtained. DESCRIPTION OF PROCEDURE: The patient had undergone Gatorade, MiraLAX and Dulcolax prep. He had been brought into the operating room and laid in the left lateral decubitus position. After adequate intravenous sedation, the rectum was examined with 2% lidocaine jelly. No external hemorrhoids were encountered. The rectal tone was within normal limits. No lesions were palpated in the rectal vault. An Olympus colonoscope was advanced to the ascending colon. She had moderate redundant sigmoid colon prohibiting clear view of the cecum and ileocecal valve. The prep was excellent with clear visualization of the mucosal folds. The scope was removed with visualization of each mucosal fold. No scattered diverticulosis was encountered. No colonic polyps were found. No evidence of focal colitis was found. Retroflexion of the scope demonstrated grade 1 internal hemorrhoids without active bleeding or inflammation. The colon was desufflated. The patient had tolerated the procedure well. Withdrawal time was over 6 minutes. FINDINGS: Internal hemorrhoids, grade 1 No external prolapsed hemorrhoids. No arteriovenous malformations. No adenomatous polyps. No focal colitis. No diverticulosis. Colonoscope to ascending colon. RECOMMENDATIONS: Lower endoscopy in 5 to 10 years or sooner for symptoms. Plan - Discharge Summary Discharge Medication List Sertraline [Zoloft] 100 mg PO BID 09/05/16 [History] Topiramate [Topamax] 100 mg PO BID 09/05/16 [History] Estradiol [Estradiol] 1 patch TRANSDERM WESA 09/29/16 [History] Omeprazole 40 mg PO DAILY #30 capsule. 12/27/16 [Rx] Cholecalciferol (Vitamin D3) [Vitamin D3] 10,000 unit PO DAILY 12/29/16 [History ] Imitrex(Unknown Dose) 1 tab PO DIRECTED PRN 01/01/17 [History] Follow up Appointment(s)/Referral(s): Heather Quiles MD [STAFF PHYSICIAN] - 01/16/17 ([facility]) Patient Instructions/Handouts: *[facility] - (Anesthesia) Endoscopy Discharge Instructions Discharge Disposition: HOME SELF-CARE
[2017-01-01 09:59] VITALS: BP 100/61; PULSE 61
== END 2017-01-01 10:51 | disposition home or self-care (01) ==
LOC: ORWHC2ENDO 08:33
PROVIDERS: ATTEND Surgery Plastic and Reconstructive Surgery
DX: Z12.11 Encounter for screening for malignant neoplasm of colon (principal); K64.0 First degree hemorrhoids; Q43.8 Other specified congenital malformations of intestine; M19.90 Unspecified osteoarthritis, unspecified site; F39 Unspecified mood [affective] disorder; G47.30 Sleep apnea, unspecified; K21.9 Gastro-esophageal reflux disease without esophagitis; F41.9 Anxiety disorder, unspecified; Z79.899 Other long term (current) drug therapy; Z88.5 Allergy status to narcotic agent; Z88.0 Allergy status to penicillin; Z87.891 Personal history of nicotine dependence
CPT/HCPCS: J2704; G0121

== ENCOUNTER → 2017-01-25 | Outpatient (CLI) | payer BC ==
[2017-01-25 13:19] VITALS: BP 108/72; PULSE 53; RESP 20; TEMP 97; BMI 27.6
--- NOTE | 2017-03-16 11:44 | P.PN ---
Progress Note - Text DATE OF SERVICE: 01/25/2017 CHIEF COMPLAINT: History of abdominal pain. HISTORY OF PRESENT ILLNESS: Mimi Barbour is a 56-year-old female who is status post lapband port revision from 10/02/2016. She is almost 4 months out. She comes in now with progressive abdominal pain. As a result of her abdominal pain, she is now evaluating for a band to sleeve or band to bypass. She has completed additional imaging. PAST MEDICAL HISTORY: 1. Morbid obesity, now resolved. 2. Depression. 3. Endometriosis. 4. Sleep apnea. 5. Osteoarthritis. PAST SURGICAL HISTORY: 1. History of adjustable gastric band placement. 2. Panniculectomy. 3. Revision of port of her adjustable gastric band port. MEDICATIONS: 1. Topamax. 2. Zoloft. 3. Omeprazole. 4. Imitrex. 5. Estradiol. ALLERGIES: 1. CODEINE. 2. PENICILLIN. SOCIAL HISTORY: Lifelong nontobacco user. FAMILY HISTORY: Consistent with morbid obesity. REVIEW OF ORGAN SYSTEMS: CONSTITUTIONAL: [place] body weight for 149 pounds. Height of 5 feet 5-3/4 inches. Initial weight 305 pounds. Current weight of 170 pounds. She has maintained a 135-pound weight loss. Percent excess weight loss of 87%. Body mass index reduced from 49.7 down to 27.6. She has gained 2 pounds in approximately one month. She is only 21 pounds overweight. GASTROINTESTINAL: No reports of intractable nausea and vomiting. No reports of diarrhea. PSYCH: History of depression without recent suicidal ideation. RESPIRATORY: History of obstructive sleep apnea. HEENT: Denies troubles with vision or hearing. No reports of dysphagia. ENDOCRINE: No reports of thyroid disorder or diabetes type 2, CARDIOVASCULAR: Denies any chest pain or heart attack. MUSCULOSKELETAL: Denies any diffuse joint pain. NEURO: No reports of stroke or seizure disorder. HEMATOLOGIC: Denies any easy bruising or bleeding. PHYSICAL EXAM: VITAL SIGNS: 97, 53, 20, 108/72, 5 feet 5-3/4 inches, 170 pounds. Body mass index 27.6. ABDOMEN: Soft. Minimal tenderness along the epigastrium. Port palpated along the previous incision of the left upper quadrant. GENERAL: Well developed female in no acute distress. HEENT: No scleral icterus. Extraocular movements grossly intact. Moist mucosa. NECK: Supple, no lymphadenopathy. CHEST: Nonlabored respirations. Equal bilateral excursions. CARDIOVASCULAR: Regular rate and rhythm. MUSCULOSKELETAL: No clubbing, cyanosis, or edema. NEURO: No focal or from appropriate affect. Alert and oriented to person, place, and time. PSYCH: Appropriate affect. Alert and oriented to person, place, and time. STUDIES: Recent CT of the abdomen and pelvis had confirmed malposition of her band consistent with slippage. Kidney stones noted along the right. Ultrasound of the gallbladder also reviewed consistent with no evidence of stone. ASSESSMENT: 1. Morbid obesity due to excess calories, now resolved. 2. Body mass index reduced from 49.7 and 27.6. 3. Complications of adjustable gastric band. 4. Abdominal pain. PLAN: 1. With complication of her band, I do recommend that she will need surgical intervention. 2. Options including revision of her band to sleeve or gastric bypass was described. 3. She has elected for possible revision to a sleeve gastrectomy. 4. With a history of abdominal pain along the epigastrium would recommend evaluation of an upper endoscopy as well. 5. Per patient's request, she has elected of no removal of her band at this time.
== END | disposition home or self-care (01) ==
LOC: BARWHC3 11:02
PROVIDERS: ATTEND Surgery Plastic and Reconstructive Surgery
DX: Z48.815 Encounter for surgical aftercare following surgery on the digestive system (principal); K95.09 Other complications of gastric band procedure; R10.84 Generalized abdominal pain; Z68.27 Body mass index [BMI] 27.0-27.9, adult
CPT/HCPCS: 99211

== ENCOUNTER 2017-03-07 08:05 | Day surgery (SDC) | payer BC ==
[2017-03-02 13:15] VITALS: BMI 28.3
[~2017-03-07 08:05] MED LIST changes: -LACTATED RINGERS 1,000 ML IV SCH
[2017-03-07] MEDS ORDERED: LACTATED RINGERS 1,000 ML IV ONE ×2 (08:13→10:01)
[2017-03-07] MEDS ORDERED: PROPOFOL 10 MG/ML 20 ML VIAL IV ONE (08:43)
[2017-03-07] MEDS ORDERED: MIDAZOLAM 2 MG/2 ML VIAL ONE (08:43)
[2017-03-07] MEDS ORDERED: fentaNYL (PF) 50 MCG/ML 2 ML AMP ONE (08:43)
[2017-03-07] MEDS ORDERED: LIDOCAINE 1% INJ 10MG/ML (20 ML MDV) ONE (08:43)
--- NOTE | 2017-03-07 08:46 | P.GSHP ---
History of Present Illness H&P Date: 03/07/17 CHIEF COMPLAINT: GERD HISTORY OF PRESENT ILLNESS: The patient is a 56-year-old female who presents reports gastroesophageal reflux disease. Upper endoscopy was offered for further evaluation and management. PAST MEDICAL HISTORY: Please see list. PAST SURGICAL HISTORY: Please see list. MEDICATIONS: Please see list. ALLERGIES: Please see list. SOCIAL HISTORY: No illicit drug use FAMILY HISTORY: No reports of Crohn disease or ulcerative colitis. REVIEW OF ORGAN SYSTEMS: CONSTITUTIONAL: No reports of fevers or chills. GI: Denies any blood in stools or constipation. PHYSICAL EXAM: VITAL SIGNS: Stable GENERAL: Well-developed and pleasant in no acute distress. HEENT: No scleral icterus. Extraocular movements grossly intact. Moist buccal mucosa. NECK: Supple without lymphadenopathy. CHEST: Unlabored respirations. Equal bilateral excursions. CARDIOVASCULAR: Regular rate and rhythm. Distal 2+ pulses. ABDOMEN: Soft, nondistended. MUSCULOSKELETAL: No clubbing, cyanosis, or edema. ASSESSMENT: 1. Gastroesophageal reflux disease PLAN: 1. Recommend proceeding with an upper endoscopy Past Medical History Past Medical History: GERD/Reflux, Osteoarthritis (OA), Sleep Apnea/CPAP/BIPAP Additional Past Medical History / Comment(s): Hx of sleep apnea (resolved with wt loss), migraines., states having nausea and vomiting. History of Any Multi-Drug Resistant Organisms: None Reported Past Surgical History: Bariatric Surgery, Hysterectomy, Joint Replacement, Orthopedic Surgery, Tonsillectomy Additional Past Surgical History / Comment(s): Total right knee, Lap Band and Revision., panniculectomy., filomena carpal tunnel., knee arthroscopy., colonoscopy. Past Anesthesia/Blood Transfusion Reactions: No Reported Reaction Past Psychological History: Anxiety Smoking Status: Former smoker Past Alcohol Use History: None Reported Additional Past Alcohol Use History / Comment(s): SMOKED LESS THAN 1 PPD., QUIT 16 YRS AGO (2000). SMOKED APPROX 16 YEARS. Past Drug Use History: None Reported - Past Family History Sister(s) Family Medical History: Deep Vein Thrombosis (DVT) Brother(s) Family Medical History: Deep Vein Thrombosis (DVT) Medications and Allergies Home Medications Medication Instructions Recorded Confirmed Type Sertraline [Zoloft] 100 mg PO BID 09/05/16 03/07/17 History Topiramate [Topamax] 100 mg PO BID 09/05/16 03/07/17 History Estradiol [Estradiol] 1 patch TRANSDERM WESA 09/29/16 03/07/17 History Imitrex(Unknown Dose) 1 tab PO DIRECTED PRN 01/01/17 03/07/17 History Cholecalciferol [Vitamin D3] 5,000 unit PO DAILY 03/02/17 03/07/17 History Allergies Allergy/AdvReac Type Severity Reaction Status Date / Time codeine Allergy Chest Pain Verified 03/07/17 08:14 Penicillins Allergy Rash/Hives Verified 03/07/17 08:14 Surgical - Exam Vital Signs Temp 97.2 F L 03/07/17 08:21
[2017-03-07] MEDS ORDERED: NALOXONE 0.4 MG/ML 1 ML VIAL IV PRN (09:26)
--- NOTE | 2017-03-07 09:31 | P.PN ---
Progress Note - Text Patient completed upper endoscopy with finding of gastric band prolapse with some element of slippage. Moderate edema found along the stomach. Recommend immediate admission for urgent removal of an adjustable gastric band including IV fluid hydration.
[2017-03-07 10:30] LABS: Basophils % (A) 1 %; CH 32.4; CHCM 33.1; Eosinophils # (A) 0.1 k/uL (0-0.7); Eosinophils % (A) 2 %; HCT 40.4 % (34.0-46.0); HDW 2.42; HGB 12.7 gm/dL (11.4-16.0); Luc % (Auto) 2; Lymphocytes # (A) 1.2 k/uL (1.0-4.8); Lymphocytes % (A) 27 %; MCH 30.9 pg (25.0-35.0); MCHC 31.4 g/dL (31.0-37.0); MCV 98.4 fL (80.0-100.0); Monocytes # (A) 0.3 k/uL (0-1.0); Monocytes % (A) 6 %; Neutrophils # (A) 2.7 k/uL (1.3-7.7); Neutrophils % (A) 62 %; RDW 13.7 % (11.5-15.5); WBC 4.4 k/uL (3.8-10.6); WBC (Perox) 4.63
[2017-03-07] MEDS ORDERED: SUMAtriptan SUCCINATE 6 MG/0.5 ML VIAL SQ STA ×3 (10:34→21:48)
[2017-03-07 10:44] LABS: ALT 28 U/L (9-52); AST 19 U/L (14-36); Alkaline Phosphatase 51 U/L (38-126); Amylase 40 U/L (30-110); Anion Gap 7 mmol/L; Blood Urea Nitrogen 10 mg/dL (7-17); Calcium 8.5 mg/dL (8.4-10.2); Carbon Dioxide 26 mmol/L (22-30); Chloride 107 mmol/L (98-107); Glucose 101 mg/dL (74-99); Magnesium 1.9 mg/dL (1.6-2.3); Non-African American GFR(MDRD) >60 (>60 ml/min/1.73 sqM); Phosphorous 3.2 mg/dL (2.5-4.5); Potassium 4.5 mmol/L (3.5-5.1); Sodium 140 mmol/L (137-145); Total Bilirubin 0.6 mg/dL (0.2-1.3); Total Protein 6.1 g/dL (6.3-8.2)
[2017-03-07] MEDS: LACTATED RINGERS 1,000 ML IV SCH (10:45)
[2017-03-07] MEDS ORDERED: SODIUM CHLORIDE 0.9% 2,000 ML IV ONE (17:59)
[2017-03-07] MEDS ORDERED: ACETAMINOPHEN TAB 325 MG TAB PO PRN (21:58)
[2017-03-07] MEDS: SODIUM CHLORIDE 0.45% 1,000 ML IV SCH ×2 (22:45→22:49)
[2017-03-08] MEDS: SODIUM CHLORIDE 0.45% 1,000 ML IV SCH ×2 (05:54→19:49)
[2017-03-08] MEDS: LACTATED RINGERS 1,000 ML IV SCH (06:09)
[2017-03-08 07:29] LABS: Anion Gap 6 mmol/L; Blood Urea Nitrogen 7 mg/dL (7-17); Calcium 8.6 mg/dL (8.4-10.2); Carbon Dioxide 24 mmol/L (22-30); Chloride 113 mmol/L (98-107); Glucose 93 mg/dL (74-99); Magnesium 1.8 mg/dL (1.6-2.3); Non-African American GFR(MDRD) >60 (>60 ml/min/1.73 sqM); Potassium 4.1 mmol/L (3.5-5.1); Sodium 143 mmol/L (137-145)
[2017-03-08] MEDS ORDERED: ACETAMINOPHEN IV (For NPO) 1,000 MG in EMPTY BAG 1 BAG IVPB STA (07:34)
[2017-03-08] MEDS: PANTOPRAZOLE 40 MG/10 ML VIAL IV SCH (08:12)
[2017-03-08] MEDS: ENOXAPARIN 40 MG/0.4 ML SYRINGE SQ SCH ×2 (08:17→13:28)
[2017-03-08] MEDS ORDERED: SUMAtriptan SUCCINATE 6 MG/0.5 ML VIAL SQ STA (13:08)
[2017-03-08] MEDS ORDERED: ACETAMINOPHEN IV (For NPO) 1,000 MG in EMPTY BAG 1 BAG IVPB ONE (14:13)
[2017-03-08] MEDS ORDERED: IMITREX PO PRN (18:25)
[2017-03-08] MEDS: CHOLECALCIFEROL 1,000 UNIT TAB PO SCH (20:34)
[2017-03-08] MEDS: TOPIRAMATE 100 MG TAB PO SCH (20:34)
[2017-03-08] MEDS: SERTRALINE 100 MG TAB PO SCH (20:34)
--- NOTE | 2017-03-08 21:33 | P.PN ---
Progress Note - Text Patient seen and evaluated. Her migraine is now resolved. Recommend proceeding with removal of adjustable gastric band secondary to prolapse.
[2017-03-09] MEDS: SODIUM CHLORIDE 0.45% 1,000 ML IV SCH ×2 (03:57→14:13)
--- NOTE | 2017-03-09 07:36 | P.HPADDEND ---
H&P Addendum H&P Addendum Date: 03/09/17 Patient presents with history of adjustable gastric band prolapse and symptomatic with nausea and vomiting. Upper endoscopy also demonstrated finding. She now reports resolution of her migraines. She also complains of intermittent right upper quadrant abdominal pain. May benefit from right upper quadrant ultrasound. We'll proceed with adjustable gastric band removal including all components.
[2017-03-09] MEDS ORDERED: IV FLUID CONTINUATION 1,000 ML IV ONE (08:04)
[2017-03-09] MEDS: ONDANSETRON 4 MG/2 ML VIAL IVP PRN ×2 (08:19→11:48)
[2017-03-09] MEDS ORDERED: CLINDAMYCIN 900 MG in DEXTROSE 5% IN WATER 50 ML IVPB ONE ×2 (08:50)
[2017-03-09] MEDS ORDERED: ACETAMINOPHEN IV (For NPO) 1,000 MG in EMPTY BAG 1 BAG IVPB ONE (08:50)
[2017-03-09] MEDS ORDERED: LACTATED RINGERS 1,000 ML IV ONE ×2 (09:00→10:56)
[2017-03-09] MEDS ORDERED: NON-FORMULARY DRUG (Omeprazole [Omeprazole] 40 MG) PO SCH (09:00)
[2017-03-09] MEDS: ENOXAPARIN 40 MG/0.4 ML SYRINGE SQ SCH (09:04)
[2017-03-09] MEDS ORDERED: PROPOFOL 10 MG/ML 20 ML VIAL IV ONE (09:31)
[2017-03-09] MEDS ORDERED: ePHEDrine 50 MG/ML 1 ML AMP ONE (09:31)
[2017-03-09] MEDS ORDERED: MIDAZOLAM 2 MG/2 ML VIAL ONE (09:31)
[2017-03-09] MEDS ORDERED: NEOSTIGMINE 1 MG/ML 10 ML VIAL ONE (09:31)
[2017-03-09] MEDS ORDERED: LIDOCAINE 1% INJ 10MG/ML (20 ML MDV) ONE (09:31)
[2017-03-09] MEDS ORDERED: SUCCINYLCHOLINE CHLORIDE 100 MG/5 ML SYR IV ONE (09:31)
[2017-03-09] MEDS ORDERED: fentaNYL (PF) 50 MCG/ML 2 ML AMP ONE (09:31)
[2017-03-09] MEDS ORDERED: GLYCOPYRROLATE 0.2 MG/ML 2 ML VIAL ONE (09:31)
[2017-03-09] MEDS ORDERED: ROCURONIUM BROMIDE 10 MG/ML 10 ML VIAL IV ONE (09:31)
[2017-03-09] MEDS ORDERED: BUPIVACAIN-EPI 0.5%-1:200,000 30 ML VIAL SQ ONE (09:58)
--- NOTE | 2017-03-09 11:03 | P.PCN ---
Date of Procedure: 03/09/17 Preoperative Diagnosis: Gastric band prolapse, intractable nausea and vomiting, abdominal pain Postoperative Diagnosis: Same, posterior gastric prolapse, complication adjustable gastric band Procedure(s) Performed: Laparoscopic removal of adjustable gastric band and all components, intraoperative EGD Implants: Anesthesia: GETA, local Surgeon: Heather Quiles Estimated Blood Loss (ml): 30 Pathology: other (Adjustable gastric band and all components including fibrotic tissue) Condition: stable Disposition: floor Indications for Procedure: Operative Findings: 1. Posterior gastric prolapse of adjustable gastric band with moderate involvement of the superior pole stomach. 2. Scope demonstrating no full-thickness injury to the stomach. 3. Moderate scar tissue about old generation gastric band. 4. Ports including mesh excised from the abdominal wall. 5. [place] drain applied along subcutaneous tissues to minimize risk for postoperative seroma. 6. Abdominal binder placed. 7. 5 mm trocar placed to previous port site. Description of Procedure:
[2017-03-09 11:38] VITALS: RESP 16
[2017-03-09] MEDS ORDERED: diphenhydrAMINE 50 MG/ML 1 ML VIAL IVP ONE (11:49)
[2017-03-09] MEDS ORDERED: KETOROLAC 30 MG/ML 1 ML VIAL IVP SCH (12:00)
[2017-03-09] MEDS: TOPIRAMATE 100 MG TAB PO SCH (14:13)
[2017-03-09] MEDS: PANTOPRAZOLE 40 MG/10 ML VIAL IV SCH (14:13)
[2017-03-09] MEDS: SERTRALINE 100 MG TAB PO SCH (14:13)
[2017-03-09] MEDS: CHOLECALCIFEROL 1,000 UNIT TAB PO SCH (14:14)
[2017-03-09] MEDS ORDERED: LACTATED RINGERS 1,000 ML IV SCH (14:40)
[2017-03-09] MEDS ORDERED: DEXAMETHASONE SOD PHOSPHATE 10 MG/ML 1 ML VIAL IV ONE (14:40)
[2017-03-09] MEDS ORDERED: ONDANSETRON 4 MG/2 ML VIAL IVP ONE (14:40)
[2017-03-09] MEDS ORDERED: fentaNYL (PF) 50 MCG/ML 2 ML AMP IV PRN (14:40)
[2017-03-09] MEDS ORDERED: SCOPOLAMINE 1.5MG/72HR PATCH TRANSDERM ONE (14:40)
[2017-03-09 14:46] VITALS: BP 140/62; PULSE 75; TEMP 97.3
--- NOTE | 2017-03-09 17:16 | P.PN ---
Progress Note - Text Patient seen and evaluated. She reports no pain. Her nausea and epigastric abdominal pain is completely resolved. Patient is clear from a surgical standpoint for discharge for follow-up in the bariatric center in 4 days. She'll wear her abdominal binder at all times. Dressing to be discontinued in the office.
[2017-03-10] MEDS ORDERED: ESTRADIOL TRANSDERM SCH (18:25)
--- NOTE | 2017-03-19 09:01 | P.PCN ---
Date of Procedure: 03/07/17 Preoperative Diagnosis: Postoperative Diagnosis: Procedure(s) Performed: Implants: Indications for Procedure: Operative Findings: Description of Procedure: PREOPERATIVE DIAGNOSIS: Gastroesophageal reflux disease. Previous history of morbid obesity. History of adjustable gastric band. Dysphagia due to solid foods. Nausea and vomiting. Epigastric abdominal pain. POSTOPERATIVE DIAGNOSIS: Gastroesophageal reflux disease. Previous history of morbid obesity. History of adjustable gastric band. Dysphagia due to solid foods. Nausea and vomiting. Epigastric abdominal pain. Gastric prolapse of adjustable gastric band with features of gastric slippage. Gastritis, chronic without active bleeding. OPERATION: Esophagogastroduodenoscopy with biopsies along antrum. SURGEON: Heather Quiles MD ANESTHESIA: MAC. INDICATIONS: The patient is a 56-year-old female who presents with a history epigastric abdominal pain including nausea and vomiting and history of adjustable gastric band. Benefits and risks of the procedure were described. Informed consent was obtained. DESCRIPTION: The patient was brought into the endoscopy suite and laid in the left lateral decubitus position. An Olympus gastroscope was passed along the posterior oropharynx down to the distal esophagus where the squamocolumnar junction was encountered at 37 cm from the incisors. The stomach was entered and moderate bile and food was found. Additional findings are listed below. Biopsies with cold forceps were obtained of the antrum. The first through third portion of the duodenum was examined and unremarkable. Retroflexion of the scope confirmed Hill grade 2 lower esophageal valve. No full-thickness erosion of her adjustable gastric band was found.The squamocolumnar junction demostrated LA grade B erosive esophagitis. The stomach was desufflated. The patient tolerated the procedure well. FINDINGS: Squamocolumnar junction 37 cm from the incisors. Diaphragmatic hiatus at 43 cm. Hiatal hernia 6 cm. Moderate dilation of gastric pouch consistent with slippage and prolapse. Hill grade 2 lower esophageal valve. LA grade B erosive esophagitis. No active duodenitis. No evidence of full-thickness gastric band erosion. Hyperemia along remnant stomach with biopsies obtained. RECOMMENDATIONS: Patient completed upper endoscopy with finding of gastric band prolapse with some element of slippage. Moderate edema found along the stomach. Recommend immediate admission for urgent removal of an adjustable gastric band including IV fluid hydration.
--- NOTE | 2017-03-19 09:18 | P.OP ---
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 PREOPERATIVE DIAGNOSES: 1. Morbid obesity due to excess calories, now resolved. 2. Body mass index reduced from 49.7 and 28.3 3. Complications of adjustable gastric band. 4. Epigastric abdominal pain. 5. Intractable migraine headaches. 6. Gastroesophageal reflux disease. 7. Dysphagia due to solid foods. 8. Nausea and vomiting. 9. Dehydration. 10. 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 11. Gastritis, chronic without active bleeding. 12. Massive weight loss of 135-pound weight loss. POSTOPERATIVE DIAGNOSES: 1. Morbid obesity due to excess calories, now resolved. 2. Body mass reduced from 51.8 down to 28.7. 3. History of adjustable gastric band. 4. History of acute renal insufficiency from hypertensive medications. 5. Hypertension. 6. Bipolar disorder with recent psychotic episode, stable. 7. Prior history of alcoholism. 8. Change in bowel habits. 9. Personal history of colon polyps. 10. History of intermittent angina. 11. Epigastric abdominal pain. 12. History of gastrointestinal bleed of unclear etiology. 13. Massive weight loss of 155 pounds. 14. Gastric band prolapse, posterior. 15. History of H. pylori gastritis. 16. Early fracture of gastric port tubing along fascia. OPERATION: 1. Laparoscopic removal of adjustable gastric band and all components. 2. Intraoperative esophagogastroduodenoscopy. ANESTHESIA: General with 0.25% Sensorcaine with epinephrine. ESTIMATED BLOOD LOSS: 30 mL SPECIMENS REMOVED: Adjustable gastric band and components, including fibrotic tissue. COMPLICATIONS: None. FINDINGS: 1. Posterior gastric prolapse of adjustable gastric band with moderate involvement of the superior pole stomach. 2. Scope demonstrating no full-thickness injury to the stomach. 3. Moderate scar tissue about old generation gastric band. 4. Ports including mesh excised from the abdominal wall. 5. Anish drain applied along subcutaneous tissues to minimize risk for postoperative seroma. 6. Abdominal binder placed. 7. 5 mm trocar placed to previous port site. INDICATIONS: The patient is a 56-year-old female who presents with prior history of adjustable gastric band. Diagnostic studies were consistent with posterior gastric prolapse as well as severe epigastric abdominal pain. Surgical options were described. As she has persistent pain and discomfort from her band, removal of the adjustable gastric band and port including all components were reviewed. Benefits and risks of the procedure were described. Informed consent was obtained. DESCRIPTION: The patient was brought into the operating room and laid in supine position. Chemical DVT prophylaxis were given as well as bilateral SCDs. Patient was brought into the operating room, transferred a split-leg table. After general induction, which was uncomplicated, the abdomen was prepped and draped in standard sterile fashion. The abdomen was prepped and draped in standard sterile fashion using ChloraPrep as well as Ioban draping. Prior to incision, a timeout protocol was confirmed with the surgical team regarding patient's name, procedure to be performed, including preoperative medications. A transverse incision was made approximately 15 cm distal to the xiphoid off to the left of the midline. A 0 degree 5 mm trocar entry was performed and entered into the peritoneal cavity. The abdomen was insufflated to 15 mmHg pressure, which she tolerated well. Diagnostic laparoscopy demonstrated no hepatomegaly or fatty liver disease. The port was palpated at the lateral left costal margin and the band was found underneath the liver. A 15 mm port was placed along the left costal margin. Next a 5 mm port was placed at the left midclavicular line. The patient was placed in steep reverse Trendelenburg position. The port was followed with its tubing to the actual band. The gastrohepatic ligament was actually scarred from her prior surgery. The posterior portion of the stomach was prolapsed posteriorly around the ALLERGAN band. Using electro-Bovie cautery, the cicatrix of the port was incised. The previous cicatrix was fairly thick with moderate scarring identified.The band was then freed. The band buckle was cut. The tubing was cut approximately 5 cm distal to the actual adapter. The band was removed in two pieces without injury to the stomach. Hemostasis was excellent. The band was removed from the abdominal cavity via the 15 mm port. Next, attention was brought to the abdominal wall where the lap band port was palpated. Skin was localized with anesthetic. A longitudinal incision was made over the previous cicatrix of the port using a #11 blade. Electro-Boviecautery was used to enter the capsule around the port. The sutures were cut and the port was removed in total along with the tubing. The previous mesh of the port to the abdominal wall was also excised along with fibrotic tissue. Diagnostic laparoscopy demonstrated complete removal of all foreign body. I then went to the head of the bed to perform intraoperative esophagogastroduodenoscopy to evaluate for any full thickness injury to the stomach. An Olympus gastroscope was passed from the posterior oropharynx down to the esophagus, where the squamocolumnar junction was found LA grade B erosive esophagitis, chronic changes. The stomach was entered and no bile reflux was found. Chronic gastritis was found along the antrum without gastric ulcers or duodenitis or duodenal ulcers. Retroflexion of the scope confirmed a Hill grade 2 lower esophageal valve. No full-thickness erosion from the prior band was encountered. No blood was found within the stomach. The stomach was desufflated. The patient tolerated the procedure well. Again, no evidence of leak was encountered from the removal of the band. Along the left upper quadrant 15 mm port site, Ceferino Pickett 0 Vicryl sutures were used to close the fascia. I then went back to the patient's bedside after re-scrubbing. All instruments and pneumoperitoneum were evacuated from the abdominal cavity. The port extraction site was hemostatic. The port site was irrigated using normal saline and hydrogen peroxide approximately, 50 mL. The skin was closed in layers using 0-Vicryl for the deep dermis and subcutaneous tissue. A [place] drain, quarter inch was placed in the subcutaneous tissue to minimize risks of postoperative seroma.The rest of the incisions were reapproximated using 4-0 Monocryl in a subcuticular interrupted fashion. Optifoam dressing was placed over the port extraction site and along the left upper quadrant to decrease risk for surgical site infection. At the end of the procedure, needle, sponge and instrument count was verified correct by the certified surgical technologist. The patient had tolerated the procedure well. An abdominal binder was placed. The patient was transferred to Postanesthesia Care Unit in stable condition. Postoperative findings were discussed with the patient's family who were pleased with the level of care.
--- NOTE | 2017-03-19 09:28 | P.DS ---
Providers Date of admission: 03/07/2017 Expected date of discharge: 03/09/17 Attending physician: Heather Quiles Primary care physician: Stated None - Discharge Diagnosis(es) (1) Other complications of gastric band procedure Status: Acute (2) Nausea and vomiting Status: Acute (3) Epigastric abdominal pain Status: Acute (4) Migraine aura, persistent, intractable Status: Acute (5) Dehydration Status: Acute (6) Gastritis, chronic Status: Acute (7) History of bariatric surgery Status: Acute Hospital Course: The patient is a 56-year-old female who was admitted following an upper endoscopy with findings of gastric band slippage with prolapse. She had intractable nausea and vomiting including epigastric abdominal pain hence her admission for urgent surgical intervention and removal of her adjustable gastric band. She also presented with dehydration with intractable migraines. After fluid resuscitation and complete emptying of her stomach, she was taken to the operating room for removal of adjustable gastric band and all components. Postoperatively, she was able to tolerate liquids. Her abdominal pain had resolved. She was discharged home. Procedures: 1. Upper endoscopy with cold biopsy forceps, 03/07/17 2. Laparoscopic removal of adjustable gastric band and all components including intraoperative EGD, 03/09/17. Patient Condition at Discharge: Stable Plan - Discharge Summary New Discharge Prescriptions: Continue Sertraline [Zoloft] 100 mg PO BID Topiramate [Topamax] 100 mg PO BID Estradiol 1 patch TRANSDERM WESA Omeprazole 40 mg PO DAILY #30 capsule.dr Boo(Unknown Dose) 1 tab PO DIRECTED PRN PRN Reason: Migraine Headache Cholecalciferol [Vitamin D3] 5,000 unit PO DAILY Discharge Medication List Sertraline [Zoloft] 100 mg PO BID 09/05/16 [History] Topiramate [Topamax] 100 mg PO BID 09/05/16 [History] Estradiol 1 patch TRANSDERM WESA 09/29/16 [History] Omeprazole 40 mg PO DAILY #30 capsule. 12/27/16 [Rx] Imitrex(Unknown Dose) 1 tab PO DIRECTED PRN 01/01/17 [History] Cholecalciferol [Vitamin D3] 5,000 unit PO DAILY 03/02/17 [History] Follow up Appointment(s)/Referral(s): Heather Quiles MD [STAFF PHYSICIAN] - 03/12/17 4:00 pm ([facility] at 4 pm.) Patient Instructions/Handouts: Exploratory Laparoscopy (DC), Abdominal Binder ( DC) Activity/Diet/Wound Care/Special Instructions: Wear binder on exception for shower. Dressing to be discontinued in the office. May take [id number] Tylenol as needed for pain. No lifting over 4 pounds in 4 weeks. May shower. No bath tub soaks. Discharge Disposition: HOME SELF-CARE
--- NOTE | 2017-03-19 09:45 | P.PN ---
Subjective Principal diagnosis: Epigastric abdominal pain. Ihe patient is a 56-year-old female who was admitted after findings of acute gastric band slippage on upper endoscopy. She reported intractable migraines from dehydration. Since fluid hydration and use of Imitrex, her migraines has improved. Abdominal pain still persists however. Objective - Vital Signs Vital signs: Vital Signs Temp 98.1 F L 03/08/17 14:51 Pulse 51 03/08/17 14:51 Resp 16 03/08/17 14:51 BP 107/68 03/08/17 14:40 Pulse Ox 97 03/08/17 14:51 - Exam GENERAL: Well developed and in no acute distress. HEENT: No sclera icterus. Extraocular movements grossly intact. Dry buccal mucosa. Head is atraumatic, normocephalic. Hears conversational speech. No nasal drainage. NECK: Supple without lymphadenopathy. No JV distention. CHEST: Non-labored respirations and equal bilateral excursions. CARDIOVASCULAR: Regular rate and rhythm. Palpable 2+ radial pulses. ABDOMEN: Soft. Nondistended. mild tenderness along the epigastrium. No peritonitis. MUSCULOSKELETAL: No clubbing, cyanosis or edema. NEUROLOGIC: No focal or lateralizing signs. PSYCH: Appropriate affect. Alert and oriented to person, place and time. - Labs CBC & Chem 7: 03/07/17 10:15 03/08/17 06:33 Assessment and Plan (1) Other complications of gastric band procedure Status: Acute (2) Nausea and vomiting Status: Acute (3) Epigastric abdominal pain Status: Acute (4) Migraine aura, persistent, intractable Status: Acute (5) Dehydration Status: Acute (6) Gastritis, chronic Status: Acute (7) History of bariatric surgery Status: Acute Plan: 1. Continue IV fluid hydration. 2. DVT prophylaxis. 3. GI prophylaxis. 4. Antibiotic prophylaxis for surgery. 5. Liquid diet only. 6. Continue with Imitrex for headaches. 7. Resume home medications. 8. Proceed with removal of adjustable gastric band and all components. Benefits and risks were reviewed in detail with the patient and her family.
== END 2017-03-09 17:56 | disposition home or self-care (01) ==
LOC: ORWHC2ENDO 08:05 → 3SUR 09:00 → ORWHC2ENDO 03-09 17:56
PROVIDERS: ATTEND Surgery Plastic and Reconstructive Surgery
DX: K95.09 Other complications of gastric band procedure (principal); K31.89 Other diseases of stomach and duodenum; G43.519 Persistent migraine aura without cerebral infarction, intractable, without status migrainosus; E86.0 Dehydration; K29.50 Unspecified chronic gastritis without bleeding; K21.0 Gastro-esophageal reflux disease with esophagitis; K44.9 Diaphragmatic hernia without obstruction or gangrene; M19.90 Unspecified osteoarthritis, unspecified site; F41.9 Anxiety disorder, unspecified; F39 Unspecified mood [affective] disorder; G47.33 Obstructive sleep apnea (adult) (pediatric); Z68.28 Body mass index [BMI] 28.0-28.9, adult; Z79.899 Other long term (current) drug therapy; Z88.5 Allergy status to narcotic agent; Z88.0 Allergy status to penicillin; Z87.891 Personal history of nicotine dependence
CPT/HCPCS: 43774; 88304; 88305; 80053; 80048; 82150; 83690; 83735 ×2; 84100; 85025; 88342; 43239; J3030 ×2; J2250 ×2; J1200; J2710; J2405; J2001 ×2; J1650 ×2; J3010 ×2; J1885; J0131 ×2; J0330; J2704 ×2; C9113

== ENCOUNTER → 2017-03-12 | Outpatient (CLI) | payer BC ==
[2017-03-12 16:30] VITALS: BP 119/62; PULSE 59; RESP 16; TEMP 98.3; BMI 28.3
--- NOTE | 2017-03-21 21:04 | P.PN ---
Progress Note - Text DATE OF SERVICE: 03/12/2017 CHIEF COMPLAINT: Follow-up and removal. HISTORY OF PRESENT ILLNESS: Mimi Barbour is a 56-year-old female who is status post lapband removal on 03/09/2017. She denies any significant abdominal pain. No reports of reflux disease. No reports of dysphagia. No fevers or chills. She is most concerned of her 4 pound weight gain in 3 days. [place] body weight for 149 pounds. Height of 5 feet 5-3/4 inches. Initial weight 305 pounds. Current weight of 174 pounds. She has maintained a 131-pound weight loss. Percent excess weight loss of 84%. Body mass index reduced from 49.7 down to 28.3. She has gained 4 pounds in approximately 3 days. She is 25 pounds overweight. PHYSICAL EXAM: VITAL SIGNS: 5 feet 5-3/4 inches, 174 pounds. Body mass index 28.3. Vital Signs Temp 98.3 F 03/12/17 16:26 Pulse 59 L 03/12/17 16:26 Resp 16 03/12/17 16:26 BP 119/62 03/12/17 16:26 Pulse Ox ABDOMEN: Soft, nondistended, nontender. [place] drain discontinued. No signs of cellulitis or infection. Abdominal binder placed. Dressing along abdomen discontinued. GENERAL: Well developed female in no acute distress. HEENT: No scleral icterus. Extraocular movements grossly intact. Moist mucosa. NECK: Supple, no lymphadenopathy. CHEST: Nonlabored respirations. Equal bilateral excursions. CARDIOVASCULAR: Regular rate and rhythm. MUSCULOSKELETAL: No clubbing, cyanosis, or edema. NEURO: No focal or from appropriate affect. Alert and oriented to person, place, and time. PSYCH: Appropriate affect. Alert and oriented to person, place, and time. ASSESSMENT: 1. Morbid obesity due to excess calories, now resolved. 2. Body mass index reduced from 49.7 and 28.3. 3. Complications of adjustable gastric band. PLAN: 1. Clinical follow-up in 2-3 weeks issues were still develop a seroma. 2. Abdominal binder on times except when showering. 3. No lifting over 4 pounds in 2 weeks.
== END | disposition home or self-care (01) ==
LOC: BARWHC3 15:59
PROVIDERS: ATTEND Surgery Plastic and Reconstructive Surgery
DX: Z09 Encounter for follow-up examination after completed treatment for conditions other than malignant neoplasm (principal); Z98.84 Bariatric surgery status
CPT/HCPCS: 99211

== ENCOUNTER → 2017-03-22 | Day surgery (SDC) | payer BC ==
[2017-03-22 12:51] VITALS: BP 123/58; PULSE 47; RESP 14; TEMP 98.7
--- NOTE | 2017-03-22 13:22 | US ---
ULTRASOUND GUIDED FNA SEROMA DISCONTINUED: CLINICAL HISTORY: Subcutaneous seroma FINDINGS: Preliminary imaging demonstrated no sizable fluid collection for percutaneous drainage IMPRESSION: 1. Discontinued FNA of seroma due to no sizable collection.
== END ==
LOC: RADPROMAIN 12:20
PROVIDERS: ATTEND Surgery Plastic and Reconstructive Surgery
DX: R10.12 Left upper quadrant pain (principal)
CPT/HCPCS: 76536

== ENCOUNTER → 2017-03-22 | Outpatient (CLI) | payer BC ==
[2017-03-22 11:13] VITALS: BP 119/77; PULSE 66; RESP 20; TEMP 98.3; BMI 28.8
--- NOTE | 2017-03-22 15:17 | P.PN ---
Progress Note - Text DATE OF SERVICE: 03/22/2017 CHIEF COMPLAINT: Follow-up and removal. HISTORY OF PRESENT ILLNESS: Mimi Barbour is a 56-year-old female who is status post lapband removal on 03/09/2017. She complains of left lower quadrant abdominal pain especially over the left lateral incision. She reports developing nausea from the pain. Her other concern includes moderate weight gain of 7 pounds in 1 month. No reports of reflux disease. No reports of dysphagia. No fevers or chills. [place] body weight for 149 pounds. Height of 5 feet 5-3/4 inches. Initial weight 305 pounds. Current weight of 177 pounds. She has maintained a 128-pound weight loss. Percent excess weight loss of 82%. Body mass index reduced from 49.7 down to 28.8. She has gained another 3 pounds in 1 week. She is 28 pounds overweight. PHYSICAL EXAM: VITAL SIGNS: 5 feet 5-3/4 inches, 177 pounds. Body mass index 28.3. Vital Signs Temp 98.3 F 03/22/17 10:58 Pulse 66 03/22/17 10:58 Resp 20 03/22/17 10:58 BP 119/77 03/22/17 10:58 Pulse Ox Intake & Output 03/21/17 03/22/17 03/22/17 18:59 06:59 18:59 Weight 80.286 kg ABDOMEN: No signs of cellulitis or infection. Tenderness along the left lateral incision. No significant abdominal seroma identified. GENERAL: Well developed female in no acute distress. HEENT: No scleral icterus. Extraocular movements grossly intact. Moist mucosa. NECK: Supple, no lymphadenopathy. CHEST: Nonlabored respirations. Equal bilateral excursions. CARDIOVASCULAR: Regular rate and rhythm. MUSCULOSKELETAL: No clubbing, cyanosis, or edema. NEURO: No focal or from appropriate affect. Alert and oriented to person, place, and time. PSYCH: Appropriate affect. Alert and oriented to person, place, and time. ASSESSMENT: 1. Morbid obesity due to excess calories, now resolved. 2. Body mass index reduced from 49.7 and 28.8. 3. Complications of adjustable gastric band. 4. Dietary surveillance and counseling. 5. Left lower quadrant abdominal pain. PLAN: 1. I went over her food diary intake where she is eating over 150 to 200 g of carbohydrate daily. This puts her at risk for weight gain. I encouraged her to maintain a food journal through [employer]. 2. Recommend less than 50 to 100 g of carbohydrate daily to facilitate weight loss. 3. Recommend ultrasound of the abdomen to identify and aspirate abdominal seroma. 4. Follow-up in one week regarding abdominal pain including dietary surveillance.
== END | disposition home or self-care (01) ==
LOC: BARWHC3 10:27
PROVIDERS: ATTEND Surgery Plastic and Reconstructive Surgery
DX: Z48.815 Encounter for surgical aftercare following surgery on the digestive system (principal); K95.09 Other complications of gastric band procedure; Z71.3 Dietary counseling and surveillance; Z68.28 Body mass index [BMI] 28.0-28.9, adult; Z98.84 Bariatric surgery status
CPT/HCPCS: 99211

== ENCOUNTER → 2017-04-04 | Outpatient (CLI) | payer BC ==
[2017-04-04 15:02] VITALS: BP 129/63; PULSE 58; RESP 16; TEMP 98.4; BMI 29.4
--- NOTE | 2017-04-28 22:15 | P.PN ---
Progress Note - Text DATE OF SERVICE: 04/04/2017 CHIEF COMPLAINT: Follow-up and removal. HISTORY OF PRESENT ILLNESS: Mimi Barbour is a 56-year-old female who is status post lapband removal on 03/09/2017. She is almost 1 month out. Her left upper and left lower quadrant abdominal pain has improved. She had an ultrasound of the abdomen demonstrating no sizable evidence of seroma. She is fairly concerned about moderate weight gain. She has gained another 4 pounds in 2 weeks. She denies any heartburn at this time. She is looking into bariatric procedures. [place] body weight for 149 pounds. Height of 5 feet 5-3/4 inches. Initial weight 305 pounds. Current weight of 181 pounds. She has maintained a 124-pound weight loss. Percent excess weight loss of 80%. Body mass index reduced from 49.7 down to 29.5. PHYSICAL EXAM: VITAL SIGNS: 5 feet 5-3/4 inches, 181 pounds. Body mass index 29.5. Vital Signs 04/04/17 14:59 Temperature 98.4 F Pulse Rate 58 L Respiratory 16 Rate Blood Pressure 129/63 ABDOMEN: No signs of cellulitis or infection. Resolved tenderness along the left lateral incision. GENERAL: Well developed female in no acute distress. HEENT: No scleral icterus. Extraocular movements grossly intact. Moist mucosa. NECK: Supple, no lymphadenopathy. CHEST: Nonlabored respirations. Equal bilateral excursions. CARDIOVASCULAR: Regular rate and rhythm. MUSCULOSKELETAL: No clubbing, cyanosis, or edema. NEURO: No focal or from appropriate affect. Alert and oriented to person, place, and time. PSYCH: Appropriate affect. Alert and oriented to person, place, and time. ASSESSMENT: 1. Morbid obesity due to excess calories, now resolved. 2. Body mass index reduced from 49.7 to 29.5. 3. Complications of adjustable gastric band. 4. Dietary surveillance and counseling. 5. Left lower quadrant abdominal pain, resolved. PLAN: 1. Recommend revision to a bariatric procedure. She is evaluating for a gastrectomy procedure, potential a sleeve gastrectomy. 2. Recommend medically supervised weight loss in the interim. 3. Recommend bariatric dietitian evaluation.
== END | disposition home or self-care (01) ==
LOC: BARWHC3 14:12
PROVIDERS: ATTEND Surgery Plastic and Reconstructive Surgery
DX: K95.09 Other complications of gastric band procedure (principal); Z71.3 Dietary counseling and surveillance; Z68.29 Body mass index [BMI] 29.0-29.9, adult
CPT/HCPCS: 99211

== ENCOUNTER → 2017-05-30 | Outpatient (CLI) | payer BC ==
--- NOTE | 2017-06-17 00:15 | P.PN ---
Progress Note - Text DATE OF CONSULTATION: 05/30/2017 CHIEF COMPLAINT: Bariatric assessment. HISTORY OF PRESENT ILLNESS: Mimi Barbour is a 57-year-old female with past history of an adjustable gastric band. Her highest weight was 305 pounds. Her lowest weight was 151 wounds. She had a band removal in 03/09/2017 secondary to complication of acute band slippage. Since her band removal, she has experienced moderate weight regain. She is eating carbohydrates and sweets. She has gained 14 pounds in 2 months. She is up to 195 pounds. She has gained 25 pounds in 9 months. Her ideal body weight for her 5 feet 5-3/4 inch frame is 149 pounds. She has maintained a 110 pound weight loss. Percent excess weight loss is 71%. Her body mass index is reduced from 49.7 down to 31.8. She denies any gastroesophageal reflux disease since her band removal. She has elected for adjustable gastric band placement. PAST MEDICAL HISTORY: 1. Morbid obesity. 2. Depression. 3. Vitamin D deficiency. PAST SURGICAL HISTORY: 1. History of adjustable gastric band placement. 2. Panniculectomy. 3. Band removal. 4. EGD. MEDICATIONS: 1. Topamax. 2. Zoloft. 3. Vitamin D. ALLERGIES: 1. CODEINE. 2. PENICILLIN. SOCIAL HISTORY: Lifelong nontobacco user. She is with at bedside. FAMILY HISTORY: Consistent with morbid obesity. REVIEW OF SYSTEMS: CONSTITUTIONAL: [place] body weight of 149 pounds for a 5 foot 5-3/4 inch frame. Total weight loss is of 110 pounds, highest weight of 302 pounds. Percent excess weight loss of 71%. Her body mass index is reduced from 49.7 down to 31.8. HEENT: Denies troubles with vision or hearing. No reports of dysphagia. ENDOCRINE: No reports of thyroid disorder or diabetes type 2. RESPIRATORY: Denies any obstructive sleep apnea or dyspnea on exertion. CARDIOVASCULAR: Denies any chest pain or heart attack. GASTROINTESTINAL: Denies any gastroesophageal reflux disease. No reports of blood in stools. MUSCULOSKELETAL: Denies any diffuse joint pain. NEURO: No reports of stroke or seizure disorder. PSYCH: No reports of depression or suicidal ideation. HEMATOLOGIC: Denies any easy bruising or bleeding. SKIN: No panniculitis or rash. PHYSICAL EXAM: VITAL SIGNS: 5 foot 5-3/4 inch frame, 195 pounds, body mass index 31.8. Vital Signs Temp 97.9 F 05/30/17 14:48 Pulse 62 05/30/17 14:48 Resp 16 05/30/17 14:48 BP 114/76 05/30/17 14:48 Pulse Ox GENERAL: A 57-year-old female in no acute distress. HEENT: No scleral icterus. Extraocular movements grossly intact. Moist mucosa. Hears conversational speech. NECK: Supple, no lymphadenopathy. CHEST: Nonlabored respirations. Equal bilateral excursions. CARDIOVASCULAR: Regular rate and rhythm. ABDOMEN: Soft, nontender. Nondistended. MUSCULOSKELETAL: No clubbing, cyanosis, or edema. NEURO: No focal or from appropriate affect. Alert and oriented to person, place , and time. PSYCH: Appropriate affect. Alert and oriented to person, place, and time. SKIN: Good skin turgor. Well perfused. ASSESSMENT: 1. Morbid obesity due to excess calories, resolved. 2. Body mass index reduced from 49.7 down to 31.8, overweight. 3. History of adjustable gastric band. 4. History of acute gastric band slippage. 5. Thiamine deficiency. 6. Hypercholesterolemia. 7. Dietary surveillance and counseling. 8. Bariatric status. PLAN: 1. She has reviewed her options and has elected for placement of an adjustable gastric band. Benefits of risk of injury to the stomach, pain, bleeding, infection, band malfunction or port malfunction were reviewed. She demonstrated understanding of the risks. 2. DVT prophylaxis. 3. Antibiotic prophylaxis. 4. Recommend dietary surveillance and counseling with 2 week high-protein low caloric diet.
== END | disposition home or self-care (01) ==
CPT/HCPCS: 99211

== ENCOUNTER → 2017-08-01 | Outpatient (CLI) | payer BC ==
[2017-08-01 13:18] LABS: EKG EKG PERFORMED
[2017-08-01 13:57] LABS: Basophils # (A) 0.1 k/uL (0-0.2); Basophils % (A) 1 %; CH 31.5; CHCM 32.6; Eosinophils # (A) 0.4 k/uL (0-0.7); Eosinophils % (A) 5 %; HCT 42.8 % (34.0-46.0); HDW 2.52; HGB 13.6 gm/dL (11.4-16.0); Luc # (Auto) 0.15; Luc % (Auto) 2; Lymphocytes # (A) 1.4 k/uL (1.0-4.8); Lymphocytes % (A) 19 %; MCHC 31.9 g/dL (31.0-37.0); MCV 97.2 fL (80.0-100.0); Mean Platelet Volume 7.6; Monocytes # (A) 0.5 k/uL (0-1.0); Monocytes % (A) 7 %; Neutrophils # (A) 4.9 k/uL (1.3-7.7); Neutrophils % (A) 66 %; RDW 13.4 % (11.5-15.5); WBC 7.4 k/uL (3.8-10.6); WBC (Perox) 7.88
[2017-08-01 14:09] LABS: ALT 27 U/L (9-52); AST 20 U/L (14-36); Alkaline Phosphatase 65 U/L (38-126); Anion Gap 8 mmol/L; Blood Urea Nitrogen 27 mg/dL (7-17); Calcium 9.5 mg/dL (8.4-10.2); Carbon Dioxide 26 mmol/L (22-30); Chloride 108 mmol/L (98-107); Glucose 78 mg/dL (74-99); Non-African American GFR(MDRD) >60 (>60 ml/min/1.73 sqM); Potassium 4.3 mmol/L (3.5-5.1); Sodium 142 mmol/L (137-145); Total Bilirubin 0.3 mg/dL (0.2-1.3); Total Protein 6.9 g/dL (6.3-8.2)
== END | disposition home or self-care (01) ==
LOC: LABPAT 12:37
PROVIDERS: ATTEND Anesthesiology
DX: Z01.810 Encounter for preprocedural cardiovascular examination (principal); Z01.812 Encounter for preprocedural laboratory examination
CPT/HCPCS: 80053; 85025; 93005

== ENCOUNTER 2017-08-06 05:48 | Inpatient (IN) | payer BC ==
[2017-07-31 15:47] VITALS: BMI 34.4
--- NOTE | 2017-08-06 04:06 | P.GSHP ---
History of Present Illness H&P Date: 08/06/17 CHIEF COMPLAINT: Morbid obesity. HISTORY OF PRESENT ILLNESS: Mimi Barbour is a 57-year-old female with past history of an adjustable gastric band. Her highest weight was 305 pounds. Her lowest weight was 151 wounds. She had a band removal in 03/09/2017 secondary to complication of acute band slippage. Since her band removal, she has experienced moderate weight regain of 56 pounds in less than 1 year. She has Her ideal body weight for her 5 feet 5-3/4 inch frame is 149 pounds. Her body mass index is reduced from 49.7 down to 33.7. She denies any gastroesophageal reflux disease since her band removal. She has elected for adjustable gastric band placement. PAST MEDICAL HISTORY: 1. Morbid obesity. 2. Depression. 3. Vitamin D deficiency. PAST SURGICAL HISTORY: 1. History of adjustable gastric band placement. 2. Panniculectomy. 3. Band removal. 4. EGD. MEDICATIONS: 1. Topamax. 2. Zoloft. 3. Vitamin D. ALLERGIES: 1. CODEINE. 2. PENICILLIN. SOCIAL HISTORY: Lifelong nontobacco user. She is with at bedside. FAMILY HISTORY: Consistent with morbid obesity. REVIEW OF SYSTEMS: CONSTITUTIONAL: [place] body weight of 149 pounds for a 5 foot 5-3/4 inch frame. Total weight loss is of 97 pounds; highest weight of 305 pounds. HEENT: Denies troubles with vision or hearing. No reports of dysphagia. ENDOCRINE: No reports of thyroid disorder or diabetes type 2. RESPIRATORY: Denies any obstructive sleep apnea or dyspnea on exertion. CARDIOVASCULAR: Denies any chest pain or heart attack. GASTROINTESTINAL: Denies any gastroesophageal reflux disease. No reports of blood in stools. MUSCULOSKELETAL: Denies any diffuse joint pain. NEURO: No reports of stroke or seizure disorder. PSYCH: No reports of depression or suicidal ideation. HEMATOLOGIC: Denies any easy bruising or bleeding. SKIN: No panniculitis or rash. PHYSICAL EXAM: VITAL SIGNS: 5 foot 5-3/4 inch frame, 207 pounds, body mass index 33.7. GENERAL: A 57-year-old female in no acute distress. HEENT: No scleral icterus. Extraocular movements grossly intact. Moist mucosa. Hears conversational speech. NECK: Supple, no lymphadenopathy. CHEST: Nonlabored respirations. Equal bilateral excursions. CARDIOVASCULAR: Regular rate and rhythm. ABDOMEN: Soft, nontender. Nondistended. MUSCULOSKELETAL: No clubbing, cyanosis, or edema. NEURO: No focal or from appropriate affect. Alert and oriented to person, place , and time. PSYCH: Appropriate affect. Alert and oriented to person, place, and time. SKIN: Good skin turgor. Well perfused. ASSESSMENT: 1. Morbid obesity due to excess calories. 2. Body mass index reduced from 49.7 down to 33.7. 3. History of adjustable gastric band. 4. History of acute gastric band slippage. 5. Thiamine deficiency. 6. Hypercholesterolemia. 7. Dietary surveillance and counseling. 8. Bariatric status. PLAN: 1. She has reviewed her options and has elected for placement of an adjustable gastric band. Benefits of risk of injury to the stomach, pain, bleeding, infection, band malfunction or port malfunction were reviewed. She demonstrated understanding of the risks. 2. DVT prophylaxis. 3. Antibiotic prophylaxis. Past Medical History Past Medical History: GERD/Reflux, Osteoarthritis (OA), Sleep Apnea/CPAP/BIPAP Additional Past Medical History / Comment(s): Hx of sleep apnea (resolved with wt loss), migraines., History of Any Multi-Drug Resistant Organisms: None Reported Past Surgical History: Bariatric Surgery, Hysterectomy, Joint Replacement, Orthopedic Surgery, Tonsillectomy Additional Past Surgical History / Comment(s): Total right knee, Lap Band and Revision., panniculectomy., filomena carpal tunnel., RIGHT knee arthroscopy., colonoscopy. Past Anesthesia/Blood Transfusion Reactions: No Reported Reaction Smoking Status: Former smoker - Past Family History Sister(s) Family Medical History: Deep Vein Thrombosis (DVT) Brother(s) Family Medical History: Deep Vein Thrombosis (DVT) Medications and Allergies Home Medications Medication Instructions Recorded Confirmed Type Sertraline [Zoloft] 100 mg PO BID 09/05/16 07/31/17 History Topiramate [Topamax] 100 mg PO BID 09/05/16 07/31/17 History Estradiol 1 patch TRANSDERM WE 09/29/16 07/31/17 History Cholecalciferol [Vitamin D3] 5,000 unit PO DAILY 03/02/17 07/31/17 History Omeprazole 40 mg PO DAILY PRN 07/31/17 07/31/17 History SUMAtriptan SUCCINATE [Imitrex] 100 mg PO BID PRN 07/31/17 07/31/17 History SUMAtriptan SUCCINATE [Imitrex] 100 mg PO BID PRN 07/31/17 07/31/17 History Allergies Allergy/AdvReac Type Severity Reaction Status Date / Time codeine Allergy Chest Pain Verified 07/31/17 15:21 Penicillins Allergy Rash/Hives Verified 07/31/17 15:21
[~2017-08-06 05:48] MED LIST changes: +ACETAMINOPHEN IV (For NPO) 1,000 MG in EMPTY BAG 1 BAG IVPB ONE; +CHLORHEXIDINE GLUCONATE 15 ML CUP MUCOUS MEM ONE; +DEXAMETHASONE SOD PHOSPHATE 10 MG/ML 1 ML VIAL IV ONE; +ENOXAPARIN 40 MG/0.4 ML SYRINGE SQ ONE; +HYDROmorphone 0.5 MG/0.5 ML SYRINGE IVP PRN; +LACTATED RINGERS 1,000 ML IV SCH; -LIDOCAINE 1% 20 ML VIAL (10MG/ML) FOR IV START INTRADERMA PRN; +MIDAZOLAM 2 MG/2 ML VIAL IV PRN; +ONDANSETRON 4 MG/2 ML VIAL IVP ONE; +PANTOPRAZOLE 40 MG/10 ML VIAL IV STA; +Pre Op ABX Message 1 EACH MISC MISCELLANE ONE; +SCOPOLAMINE 1.5MG/72HR PATCH TRANSDERM ONE; +SCOPOLAMINE 1.5MG/72HR PATCH TRANSDERM STA; +ceFAZolin IN SWFI 2 GM/20 ML SYRINGE IVP ONE
[2017-08-06 06:13] VITALS: TEMP 98.4
[2017-08-06] MEDS ORDERED: LIDOCAINE 1% 20 ML VIAL (10MG/ML) FOR IV START INTRADERMA ONE (06:27)
[2017-08-06] MEDS ORDERED: SUCCINYLCHOLINE CHLORIDE 100 MG/5 ML SYR IV ONE (07:30)
[2017-08-06] MEDS ORDERED: LIDOCAINE 1% INJ 10MG/ML (20 ML MDV) ONE (07:30)
[2017-08-06] MEDS ORDERED: ROCURONIUM BROMIDE 10 MG/ML 10 ML VIAL IV ONE (07:30)
[2017-08-06] MEDS ORDERED: PROPOFOL 10 MG/ML 20 ML VIAL IV ONE (07:30)
[2017-08-06] MEDS ORDERED: GLYCOPYRROLATE 0.2 MG/ML 2 ML VIAL ONE (07:30)
[2017-08-06] MEDS ORDERED: MIDAZOLAM 2 MG/2 ML VIAL ONE (07:30)
[2017-08-06] MEDS ORDERED: NEOSTIGMINE 1 MG/ML 10 ML VIAL ONE (07:30)
[2017-08-06] MEDS ORDERED: fentaNYL (PF) 50 MCG/ML 2 ML AMP ONE (07:30)
[2017-08-06] MEDS ORDERED: BUPIVACAINE-EPI 0.5%-1:200,000 10 ML VIAL SQ ONE (08:09)
--- NOTE | 2017-08-06 09:44 | P.OP ---
Date of Procedure: 08/06/17 Description of Procedure: SURGEON: ZAIN CHRISTIE MD TUBER MACHINE OPERATOR: KIMBERLY BARNES PREOPERATIVE DIAGNOSIS: 1. Morbid obesity due to excess calories. 2. Body mass index reduced from 49.7 down to 33.7. 3. History of adjustable gastric band. 4. History of acute gastric band slippage. 5. Thiamine deficiency. 6. Hypercholesterolemia. 7. Dietary surveillance and counseling. 8. Bariatric status. POSTOPERATIVE DIAGNOSIS: 1. Morbid obesity due to excess calories. 2. Body mass index reduced from 49.7 down to 33.7. 3. History of adjustable gastric band. 4. History of acute gastric band slippage. 5. Thiamine deficiency. 6. Hypercholesterolemia. 7. Dietary surveillance and counseling. 8. Bariatric status. 9. Peritoneal adhesions along the proximal stomach. OPERATION: 1. Laparoscopic extensive lysis of adhesions over 30 minutes. 2. Laparoscopic placement of an adjustable gastric band Realize band [id number], LOT #[id number] ANESTHESIA: General with 20 mL 0.25% Marcaine with epinephrine. ESTIMATED BLOOD LOSS: 5 mL. SPECIMENS REMOVED: None. COMPLICATIONS: None. INDICATIONS: Mimi Barbour is a 57-year-old female with past history of an adjustable gastric band. Her highest weight was 305 pounds. Her lowest weight was 151 wounds. She had a band removal in 03/09/2017 secondary to complication of acute band slippage. Since her band removal, she has experienced moderate weight regain of 56 pounds in less than 1 year. She has Her ideal body weight for her 5 feet 5-3/4 inch frame is 149 pounds. Her body mass index is reduced from 49.7 down to 33.7. She denies any gastroesophageal reflux disease since her band removal. She has elected for adjustable gastric band placement. Surgical intervention for bariatric procedures were described at length and the patient had elected for placement of adjustable gastric band. Benefits and risks, including bleeding, infection, injury to the esophagus, stomach, as well as a worsening gastroesophageal reflux disease and intermittent bleeding have been discussed at length for which he had given informed consent. DESCRIPTION: Prior to being transferred to the operating room, oral suspension of Peridex was given. She also had been given Lovenox subcutaneously. She was brought into operating room, placed on a split leg table. After general induction, the abdomen was prepped and draped in standard sterile fashion. Ioban draping was also placed. The xiphoid to the umbilicus was measured at approximately 12 cm for her height. A transverse 10 mm incision was made along the left upper abdomen at the midclavicular line. Optical view trocar entry was performed using a 5-mm laparoscopic trocar entry with an insufflating tip into the peritoneal cavity. The abdomen was insufflated to 15 mmHg of pressure which she tolerated well. Diagnostic laparoscopy demonstrate no injury to bowel, viscera or mesentery. The liver surface was completely unremarkable. Next, a medium-sized Vandana liver retractor was placed below the xiphoid to elevate the left lobe of the liver. The liver retractor was held in place using an iron architect internship. Next, a 5 mm port was placed of the right upper quadrant. A 5 mm trocars were placed, one along the left lateral abdominal wall along the anterior axillary line. The patient was then placed in steep reverse Trendelenburg position. Next, attention was brought to the angle of His. Moderate adhesions were identified of the anterior superior pole of stomach to the undersurface of liver from her previous adjustable gastric band. Extensive lysis of adhesions was performed for 30 minutes including removal of the anti-prolapse stitch. The left lateral trocar was exchanged for a 15 mm port. Next, using an atraumatic grasper, the retrogastric space was developed for placement of an Ethicon gold tip retrogastric dissector. Via the right lateral port, the genao tip retrogastric dissector was placed. Along the back table, a Realize band C was prepared and inspected for air leaks per eligibility examiner guidelines. Once leak test was completed, via the 15 mm port; Realize band was brought into the abdominal cavity with an atraumatic grasper without any handling onto the balloon portion of the band. The looped suture of the band was placed along the hiatus at the angle of His. The genao tip retrogastric dissector was used to hook the looped suture of the band and swung along the prepared retrogastric space. Once positioned along the superior pole of the stomach. The arrow was brought through the buckle, clasped, and confirmed secured. Intracorporeal suturing was performed using a Covidien Endo Stitch and 2-0 Surgidac. An anti-prolapse stitches were placed loosely around the band approximately a centimeter apart. Gastric gastric sutures were placed from the inferior portion of the band to the superior pole of the stomach just distal to the esophagus. The band had laid in approximately between 10 and 20 from horizontal plane. Intraoperative leak test was performed using saline with methylene blue with an orogastric tube. No evidence of leaks were found during this portion of the case. Next attention was brought to the placement of the port. The excess tubing was placed within the peritoneal cavity and at the tip approximately 3 inches was cut. The tubing was attached the port via an adapter. Next, the fascia of the abdominal wall was cleansed using a retractor and her previous port site at the left upper quadrant. Approximately 3 inches of the fascia was cleansed for placement of the port. Using an automatic port attachment device, the Realize port was fixated to the fascia and confirmed in the sealed and locked position. Any additional air from the Realize band port was completely removed using a non-coring needle. The tubing of the port was found to be free of any kinks. This concluded the procedure. All instruments and pneumoperitoneum were evacuated from the abdominal cavity. Along the port site, the wound was closed in layers using 0-Vicryl for the deep subcutaneous tissue. Next dermal suture using 3-0 Vicryl was placed in an interrupted fashion. The 10 mm port was reapproximated using 3-0 Vicryl. The skin incisions were reapproximated using 4-0 Monocryl in an interrupted subcuticular fashion. The patient had tolerated the procedure well. At the end of the procedure, the sponge, needle, and instrument counts were verified as correct by the senior games technician. The patient was transferred to the post-anesthesia care unit in stable condition. FINDINGS: 1. Moderate perigastric adhesions from previous adjustable gastric band. 2. No evidence of leaks within the Realize Band system
[2017-08-06] MEDS ORDERED: NALOXONE 0.4 MG/ML 1 ML VIAL IV PRN (09:46)
[2017-08-06] MEDS ORDERED: HYDROcodone/APAP 15 ML SOLUTION PO PRN (09:46)
[2017-08-06] MEDS ORDERED: HYDROmorphone 2 MG/ML 1 ML SYRINGE IVP PRN (09:46)
[2017-08-06] MEDS ORDERED: SUMAtriptan SUCCINATE 50 MG TAB PO PRN (09:48)
[2017-08-06] MEDS ORDERED: 0.9% NACL WITH KCL 20 MEQ/L 1,000 ML IV SCH (10:00)
[2017-08-06] MEDS ORDERED: HYOSCYAMINE ORAL DROPS 1.875 MG/15 ML BOTTLE PO SCH (12:00)
[2017-08-06] MEDS ORDERED: KETOROLAC 30 MG/ML 1 ML VIAL IVP SCH (12:00)
[2017-08-06] MEDS ORDERED: SIMETHICONE 40 MG/0.6 ML DROPS 2,000 MG/30 ML BOTTLE PO SCH (12:00)
[2017-08-06] MEDS ORDERED: AMPICILLIN-SULBACTAM 3 GM in SODIUM CHLORIDE 0.9% 100 ML IVPB SCH (12:00)
[2017-08-06 13:24] VITALS: RESP 16
[2017-08-06 14:11] VITALS: BP 111/67; PULSE 58
--- NOTE | 2017-08-06 15:19 | FL ---
SINGLE CONTRAST UPPER GI EXAMINATION: CLINICAL HISTORY: 57-year-old female postop bariatric surgery, replacement of a slipped lap band TECHNIQUE: Single contrast exam performed with 50 ml Omnipaque 350 contrast. Total fluoroscopy time: 1.2 minutes. Total images: 18 FINDINGS: The patient swallowed oral contrast without difficulty or delay. Esophageal peristalsis and motility are within normal limits. Laparoscopic banding device is noted to be in place. There is some promin ent vertical orientation which is felt to be within acceptable limits. It is positioned along the pro ximal stomach, just below Gastroesophageal junction. There is good flow of contrast along the cours e of the lap band, there is no evidence of contrast extravasation to suggest leak. Mild postoperative free air seen below the right hemidiaphragm. IMPRESSION: 1. No evidence of leak or significant obstruction status post lap band replacement. 2. Prominent vertical orientation of the lap band felt to be within normal limits. 3. Small amount of postoperative free air on the right.
[2017-08-06] MEDS ORDERED: ceFAZolin IN SWFI 2 GM/20 ML SYRINGE IVP SCH (16:00)
--- NOTE | 2017-08-06 20:36 | P.DS ---
Providers Date of admission: 08/06/17 05:48 Expected date of discharge: 08/06/17 Attending physician: Heather Quiles Primary care physician: Yimi Mejia - Discharge Diagnosis(es) (1) History of adjustable gastric banding Status: Acute (2) History of bariatric surgery Status: Acute (3) Other complications of gastric band procedure Status: Acute (4) Morbid obesity due to excess calories Status: Acute Hospital Course: PREOPERATIVE DIAGNOSIS: 1. Morbid obesity due to excess calories. 2. Body mass index reduced from 49.7 down to 33.7. 3. History of adjustable gastric band. 4. History of acute gastric band slippage. 5. Thiamine deficiency. 6. Hypercholesterolemia. 7. Dietary surveillance and counseling. 8. Bariatric status. POSTOPERATIVE DIAGNOSIS: 1. Morbid obesity due to excess calories. 2. Body mass index reduced from 49.7 down to 33.7. 3. History of adjustable gastric band. 4. History of acute gastric band slippage. 5. Thiamine deficiency. 6. Hypercholesterolemia. 7. Dietary surveillance and counseling. 8. Bariatric status. 9. Peritoneal adhesions along the proximal stomach. INDICATIONS: Mimi Barbour is a 57-year-old female with past history of an adjustable gastric band. Her highest weight was 305 pounds. Her lowest weight was 151 wounds. She had a band removal in 03/09/2017 secondary to complication of acute band slippage. Since her band removal, she has experienced moderate weight regain of 56 pounds in less than 1 year. She has Her ideal body weight for her 5 feet 5-3/4 inch frame is 149 pounds. Her body mass index is reduced from 49.7 down to 33.7. She denies any gastroesophageal reflux disease since her band removal. She has elected for adjustable gastric band placement. Postoperatively, no reports or dysphagia. Esophagram was performed demonstrating no leaks or extravasation. Patient was stable for discharge. Pertinent Studies: Esophagram demonstrated no leaks or extravasation. No dysphasia or obstruction identified. Procedures: OPERATION: 1. Laparoscopic extensive lysis of adhesions over 30 minutes. 2. Laparoscopic placement of an adjustable gastric band Realize band [id number], LOT #[id number] ANESTHESIA: General with 20 mL 0.25% Marcaine with epinephrine. ESTIMATED BLOOD LOSS: 5 mL. SPECIMENS REMOVED: None. COMPLICATIONS: None. Patient Condition at Discharge: Stable Plan - Discharge Summary Discharge Rx Participant: Yes New Discharge Prescriptions: New HYDROcodone/APAP [[place] Elixir 7.5-325Mg/15Ml] 15 ml PO Q6HR PRN #300 ml PRN Reason: Pain No Action Sertraline [Zoloft] 100 mg PO BID Topiramate [Topamax] 100 mg PO BID Estradiol 1 patch TRANSDERM WE Cholecalciferol [Vitamin D3] 5,000 unit PO DAILY Omeprazole 40 mg PO DAILY PRN PRN Reason: Heartburn SUMAtriptan SUCCINATE [Imitrex] 100 mg PO BID PRN PRN Reason: Migraine Headache Discharge Medication List Sertraline [Zoloft] 100 mg PO BID 09/05/16 [History] Topiramate [Topamax] 100 mg PO BID 09/05/16 [History] Estradiol 1 patch TRANSDERM WE 09/29/16 [History] Cholecalciferol [Vitamin D3] 5,000 unit PO DAILY 03/02/17 [History] Omeprazole 40 mg PO DAILY PRN 07/31/17 [History] SUMAtriptan SUCCINATE [Imitrex] 100 mg PO BID PRN 07/31/17 [History] HYDROcodone/APAP [[place] Elixir 7.5-325Mg/15Ml] 15 ml PO Q6HR PRN #300 ml [Rx] Follow up Appointment(s)/Referral(s): Heather Quiles MD [STAFF PHYSICIAN] - 08/08/17 10:00 am (bariatric center) Patient Instructions/Handouts: *Surgery [facility] - (Anesthesia) Discharge Instructions Outpatient Surgery, Clear Liquid Diet (DC), Abdominal Binder (DC), Full Liquid Diet (DC), Adjustable Gastric Band Surgery (GEN) Activity/Diet/Wound Care/Special Instructions: Liquid diet. Weat abdominal on at all times. May shower. No bath tub soaks. No lifting of more pounds in 4 weeks. Discharge Disposition: HOME SELF-CARE
[2017-08-06] MEDS ORDERED: TOPIRAMATE 100 MG TAB PO SCH (21:00)
[2017-08-06] MEDS ORDERED: SERTRALINE 100 MG TAB PO SCH (21:00)
[2017-08-07] MEDS ORDERED: 0.9% NACL WITH KCL 20 MEQ/L 1,000 ML IV SCH (08:00)
[2017-08-07] MEDS ORDERED: ENOXAPARIN 40 MG/0.4 ML SYRINGE SQ SCH (09:00)
[2017-08-07] MEDS ORDERED: PANTOPRAZOLE 40 MG/10 ML VIAL IV SCH (09:00)
== END 2017-08-06 14:46 | disposition home or self-care (01) | DRG 620 ==
LOC: 2ORWHC 05:48
PROVIDERS: ADMIT Surgery Plastic and Reconstructive Surgery; ATTEND Surgery Plastic and Reconstructive Surgery
PROC: 0DV64CZ Restriction of Stomach with Extraluminal Device, Percutaneous Endoscopic Approach (ICD-10-PCS; 2017-08-06)
PROC: 0DNW4ZZ Release Peritoneum, Percutaneous Endoscopic Approach (ICD-10-PCS; principal; 2017-08-06 07:30)
DX: E66.01 Morbid (severe) obesity due to excess calories (principal); E51.9 Thiamine deficiency, unspecified; E55.9 Vitamin D deficiency, unspecified; F32.9 Major depressive disorder, single episode, unspecified; E78.00 Pure hypercholesterolemia, unspecified; K21.9 Gastro-esophageal reflux disease without esophagitis; K66.0 Peritoneal adhesions (postprocedural) (postinfection); M19.90 Unspecified osteoarthritis, unspecified site; G47.30 Sleep apnea, unspecified; Z96.651 Presence of right artificial knee joint; Z87.891 Personal history of nicotine dependence; Z98.84 Bariatric surgery status; Z79.899 Other long term (current) drug therapy; Z88.6 Allergy status to analgesic agent; Z88.0 Allergy status to penicillin; Z90.710 Acquired absence of both cervix and uterus; Z83.2 Family history of diseases of the blood and blood-forming organs and certain disorders involving the immune mechanism; Z71.3 Dietary counseling and surveillance
CPT/HCPCS: 74240

== ENCOUNTER → 2017-08-08 | Outpatient (CLI) | payer BC ==
[2017-08-08 10:34] VITALS: BP 115/63; PULSE 71; TEMP 98.2; BMI 33.0
--- NOTE | 2017-09-30 17:58 | P.PN ---
Subjective Progress Note Date: 08/08/17 DATE OF SERVICE: 08/08/17 CHIEF COMPLAINT: Follow-up adjustable gastric band placement HISTORY OF PRESENT ILLNESS: Mimi Barbour is a 57-year-old female who is status post initial removal of adjustable gastric band now with replacement on 08/06/2017. Her highest weight was 305 pounds. Her lowest weight was 151 pounds. She had a band removal in 03/09/2017 secondary to complication of acute band slippage. Since her band removal, she has experienced moderate weight regain. Her previous weight was 207 pounds in 1 month ago. Today she comes in 202 pounds. She has 5 pounds in 1 month. Her ideal body weight for her 5 feet 5-3/4 inch frame is 149 pounds. She has maintained a 102 pound weight loss. Percent excess weight loss is 66%. Her body mass index is reduced from 49.7 down to 33.0. She reports early satiety. PHYSICAL EXAM: VITAL SIGNS: 5 foot 5-3/4 inch frame, 202 pounds, body mass index 33.0. Vital Signs Temp 98.2 F 08/08/17 10:31 Pulse 71 08/08/17 10:31 Resp BP 115/63 08/08/17 10:31 Pulse Ox GENERAL: A 57-year-old female in no acute distress. HEENT: No scleral icterus. Extraocular movements grossly intact. Moist mucosa. Hears conversational speech. NECK: Supple, no lymphadenopathy. CHEST: Nonlabored respirations. Equal bilateral excursions. CARDIOVASCULAR: Regular rate and rhythm. ABDOMEN: Soft. Incisions clean dry and intact. No palpable seroma. MUSCULOSKELETAL: No clubbing, cyanosis, or edema. NEURO: No focal or from appropriate affect. Alert and oriented to person, place , and time. PSYCH: Appropriate affect. Alert and oriented to person, place, and time. SKIN: Good skin turgor. Well perfused. ASSESSMENT: 1. Morbid obesity due to excess calories, resolved. 2. Body mass index reduced from 49.7 down to 33.0, overweight. 3. History of adjustable gastric band. PLAN: 1. At this time, no pain adjustments until complete recovery. 2. Follow-up in 4-6 weeks. 3. Recommend wearing an abdominal binder over her port to avoid seroma. Objective - Vital Signs Vital signs: Vital Signs Temp 98.2 F 08/08/17 10:31 Pulse 71 08/08/17 10:31 Resp BP 115/63 08/08/17 10:31 Pulse Ox
== END | disposition home or self-care (01) ==
LOC: BARWHC3 09:46
PROVIDERS: ATTEND Surgery Plastic and Reconstructive Surgery
DX: Z09 Encounter for follow-up examination after completed treatment for conditions other than malignant neoplasm (principal); E66.01 Morbid (severe) obesity due to excess calories; Z68.33 Body mass index [BMI] 33.0-33.9, adult; Z98.84 Bariatric surgery status
CPT/HCPCS: 97803; 99211

== ENCOUNTER → 2017-08-22 | Outpatient (CLI) | payer BC ==
[2017-08-22 15:29] VITALS: BP 111/72; PULSE 71; RESP 16; TEMP 98.2; BMI 32.6
--- NOTE | 2017-10-03 21:40 | P.PN ---
Subjective Progress Note Date: 08/22/17 DATE OF SERVICE: 08/22/17 CHIEF COMPLAINT: Follow-up adjustable gastric band placement HISTORY OF PRESENT ILLNESS: Mimi Barbour is a 57-year-old female who is status post band removal in 03/09/2017 secondary to complication of acute band slippage. She now has replacement of her adjustable gastric band on 08/06/2017. She refuses to take pain medication. No reports of nausea and vomiting. She has early satiety. Her highest weight was 305 pounds. Today she comes in weighing 201 pounds. She has lost 2 pounds in 2 weeks. Her ideal body weight for her 5 feet 5-3/4 inch frame is 149 pounds. She has maintained a 104 pound weight loss. Percent excess weight loss is 67%. Her body mass index is reduced from 49.7 down to 32.7. PHYSICAL EXAM: VITAL SIGNS: 5 foot 5-3/4 inch frame, 201 pounds, body mass index 32.7. Vital Signs Temp 98.2 F 08/22/17 15:18 Pulse 71 08/22/17 15:18 Resp 16 08/22/17 15:18 BP 111/72 08/22/17 15:18 Pulse Ox GENERAL: A 57-year-old female in no acute distress. HEENT: No scleral icterus. Extraocular movements grossly intact. Moist mucosa. Hears conversational speech. NECK: Supple, no lymphadenopathy. CHEST: Nonlabored respirations. Equal bilateral excursions. CARDIOVASCULAR: Regular rate and rhythm. ABDOMEN: Soft. Mild tenderness along the left upper quadrant. Minimal swelling along the port site. No erythema or signs of infection. MUSCULOSKELETAL: No clubbing, cyanosis, or edema. NEURO: No focal or from appropriate affect. Alert and oriented to person, place , and time. PSYCH: Appropriate affect. Alert and oriented to person, place, and time. SKIN: Good skin turgor. Well perfused. ASSESSMENT: 1. Morbid obesity due to excess calories 2. Body mass index reduced from 49.7 down to 32.7.0, overweight. 3. History of adjustable gastric band. PLAN: 1. Recommend getting an ultrasound of the abdomen to evaluate for seroma. 2. Earliest adjustment of adjustable gastric band in 2 weeks. 3. For comfort, may benefit from warm compresses. 4. I have recommended she take her pain medications. Objective - Vital Signs Vital signs: Vital Signs Temp 98.2 F 08/22/17 15:18 Pulse 71 08/22/17 15:18 Resp 16 08/22/17 15:18 BP 111/72 08/22/17 15:18 Pulse Ox Intake & Output 08/21/17 08/22/17 08/22/17 18:59 06:59 18:59 Weight 91.172 kg
== END | disposition home or self-care (01) ==
LOC: BARWHC3 14:06
PROVIDERS: ATTEND Surgery Plastic and Reconstructive Surgery
DX: Z09 Encounter for follow-up examination after completed treatment for conditions other than malignant neoplasm (principal); E66.01 Morbid (severe) obesity due to excess calories; Z68.32 Body mass index [BMI] 32.0-32.9, adult; Z98.84 Bariatric surgery status
CPT/HCPCS: 99211

== ENCOUNTER → 2017-09-05 | Outpatient (CLI) | payer BC ==
[2017-09-06 11:26] VITALS: BP 133/73; PULSE 58; RESP 15; TEMP 98.3; BMI 27.6
--- NOTE | 2017-10-17 05:31 | P.PN ---
Subjective Progress Note Date: 09/05/17 DATE OF SERVICE: 09/05/17 CHIEF COMPLAINT: Follow-up adjustable gastric band placement HISTORY OF PRESENT ILLNESS: Mimi Barbour is a 57-year-old female who is status post band removal in 03/09/2017 secondary to complication of acute band slippage. She now has replacement of her adjustable gastric band on 08/06/2017. Upon her last visit, she complained of pain and swelling along the port site. She also reports intolerance to eating breads. She also reports restriction despite no additional fluid to her band. No reports of abdominal pain. Her left upper quadrant abdominal pain is resolved. Ultrasound of the abdomen was consistent with no fluid collection. Her highest weight was 305 pounds. Today she comes in weighing 199 pounds. She has lost 2 pounds in 2 weeks. Her ideal body weight for her 5 feet 5-3/4 inch frame is 149 pounds. She has maintained a 106 pound weight loss. Percent excess weight loss is 68%. Her body mass index is reduced from 49.7 down to 32.4. PHYSICAL EXAM: VITAL SIGNS: 5 foot 5-3/4 inch frame, 199 pounds, body mass index 32.4 Vital Signs Temp 98.3 F 09/05/17 17:35 Pulse 58 L 09/05/17 17:35 Resp 15 09/05/17 17:35 BP 133/73 09/05/17 17:35 Pulse Ox GENERAL: A 57-year-old female in no acute distress. HEENT: No scleral icterus. Extraocular movements grossly intact. Moist mucosa. Hears conversational speech. NECK: Supple, no lymphadenopathy. CHEST: Nonlabored respirations. Equal bilateral excursions. CARDIOVASCULAR: Regular rate and rhythm. ABDOMEN: Soft. No swelling along the port site. No signs of infection. Nontender and nondistended. MUSCULOSKELETAL: No clubbing, cyanosis, or edema. NEURO: No focal or from appropriate affect. Alert and oriented to person, place , and time. PSYCH: Appropriate affect. Alert and oriented to person, place, and time. SKIN: Good skin turgor. Well perfused. STUDIES: Ultrasound the abdomen at port site in pain side demonstrated no fluid collection. ASSESSMENT: 1. Morbid obesity due to excess calories 2. Body mass index reduced from 49.7 down to 32.4, overweight. 3. History of adjustable gastric band. PLAN: 1. As she is losing appropriate weight, no adjustment needed. 2. Recommend follow-up in 3-4 weeks.
== END | disposition home or self-care (01) ==
LOC: BARWHC3 15:49
PROVIDERS: ATTEND Surgery Plastic and Reconstructive Surgery
DX: Z48.815 Encounter for surgical aftercare following surgery on the digestive system (principal); E66.01 Morbid (severe) obesity due to excess calories; Z68.32 Body mass index [BMI] 32.0-32.9, adult; Z98.84 Bariatric surgery status
CPT/HCPCS: 99211

== ENCOUNTER → 2017-12-26 | Outpatient (CLI) | payer BC ==
[2017-12-26 14:57] VITALS: BP 120/58; PULSE 82; RESP 16; TEMP 98; BMI 34.2
--- NOTE | 2018-01-12 20:41 | P.PN ---
Subjective Progress Note Date: 12/26/17 DATE OF SERVICE: 12/26/17 CHIEF COMPLAINT: Gastric band follow-up HISTORY OF PRESENT ILLNESS: Mimi Barbour is a 57-year-old female who is status post band removal in 03/09/2017 secondary to complication of acute band slippage. She now has replacement of her adjustable gastric band on 08/06/2017. She is 5 months postop. She reports hunger all the time. In fact, she had 5 pound weight gain in 3 months since her last visit. No reports of gastroesophageal reflux disease. No reports of abdominal pain. Her highest weight was 305 pounds. Today she comes in weighing 210 pounds. She has gained 5 pounds in 3 months. Her ideal body weight for her 5 feet 5-3/4 inch frame is 149 pounds. She has maintained 95 pound weight loss. Percent excess weight loss is 61%. Her body mass index is reduced from 49.7 down to 34.2. PAST MEDICAL HISTORY: 1. Morbid obesity. 2. Depression. 3. Vitamin D deficiency. PAST SURGICAL HISTORY: 1. History of adjustable gastric band placement and revision 2. Panniculectomy. 3. Band removal. 4. EGD. MEDICATIONS: 1. Topamax. 2. Zoloft. 3. Vitamin D. ALLERGIES: 1. CODEINE. 2. PENICILLIN. SOCIAL HISTORY: Lifelong nontobacco user. She is with at bedside. FAMILY HISTORY: Consistent with morbid obesity. REVIEW OF SYSTEMS: CONSTITUTIONAL: Her highest weight was 305 pounds. Today she comes in weighing 210 pounds. She has gained 5 pounds in 3 months. Her ideal body weight for her 5 feet 5-3/4 inch frame is 149 pounds. She has maintained 95 pound weight loss. Percent excess weight loss is 61%. Her body mass index is reduced from 49.7 down to 34.2. HEENT: Denies troubles with vision or hearing. No reports of dysphagia. ENDOCRINE: No reports of thyroid disorder or diabetes type 2. RESPIRATORY: Denies any obstructive sleep apnea or dyspnea on exertion. CARDIOVASCULAR: Denies any chest pain or heart attack. GASTROINTESTINAL: Denies any gastroesophageal reflux disease. No reports of blood in stools. MUSCULOSKELETAL: Denies any diffuse joint pain. NEURO: No reports of stroke or seizure disorder. PSYCH: No reports of depression or suicidal ideation. HEMATOLOGIC: Denies any easy bruising or bleeding. SKIN: No panniculitis or rash. PHYSICAL EXAM: VITAL SIGNS: 5 foot 5-3/4 inch frame, 210 pounds, body mass index 34.2 Vital Signs Temp 98.0 F 12/26/17 14:51 Pulse 82 12/26/17 14:51 Resp 16 12/26/17 14:51 BP 120/58 12/26/17 14:51 Pulse Ox GENERAL: A 57-year-old female in no acute distress. HEENT: No scleral icterus. Extraocular movements grossly intact. Moist mucosa. Hears conversational speech. NECK: Supple, no lymphadenopathy. CHEST: Nonlabored respirations. Equal bilateral excursions. CARDIOVASCULAR: Regular rate and rhythm. ABDOMEN: Soft. No signs of infection. Nontender and nondistended. Gastric band port left upper quadrant without erythema. MUSCULOSKELETAL: No clubbing, cyanosis, or edema. NEURO: No focal or from appropriate affect. Alert and oriented to person, place , and time. PSYCH: Appropriate affect. Alert and oriented to person, place, and time. SKIN: Good skin turgor. Well perfused. Laboratory Last Values WBC 5.5 k/uL (3.8-10.6) 10/17/17 14:00 RBC 4.25 m/uL (3.80-5.40) 10/17/17 14:00 Hgb 13.8 gm/dL (11.4-16.0) 10/17/17 14:00 Hct 41.1 % (34.0-46.0) 10/17/17 14:00 MCV 96.9 fL (80.0-100.0) 10/17/17 14:00 MCH 32.6 pg (25.0-35.0) 10/17/17 14:00 MCHC 33.6 g/dL (31.0-37.0) 10/17/17 14:00 RDW 14.1 % (11.5-15.5) 10/17/17 14:00 Plt Count 239 k/uL (150-450) 10/17/17 14:00 PT 9.8 sec (9.0-12.0) 10/17/17 14:00 INR 1.0 (<1.2) 10/17/17 14:00 APTT 22.6 sec (22.0-30.0) 10/17/17 14:00 Sodium 141 mmol/L (137-145) 10/17/17 14:00 Potassium 4.6 mmol/L (3.5-5.1) 10/17/17 14:00 Chloride 106 mmol/L (98-107) 10/17/17 14:00 Carbon Dioxide 28 mmol/L (22-30) 10/17/17 14:00 Anion Gap 7 mmol/L 10/17/17 14:00 BUN 15 mg/dL (7-17) 10/17/17 14:00 Creatinine 0.80 mg/dL (0.52-1.04) 10/17/17 14:00 Est GFR (MDRD) Af Amer >60 (>60 ml/min/1.73 sqM) 10/17/17 14:00 Est GFR (MDRD) Non-Af >60 (>60 ml/min/1.73 sqM) 10/17/17 14:00 Glucose 95 mg/dL (74-99) 10/17/17 14:[address] Glu mg/dL 97 10/17/17 14:00 Hemoglobin A1c 5.0 % (4.0-6.0) 10/17/17 14:00 Calcium 9.4 mg/dL (8.4-10.2) 10/17/17 14:00 Phosphorus 3.0 mg/dL (2.5-4.5) 10/17/17 14:00 Magnesium 2.1 mg/dL (1.6-2.3) 10/17/17 14:00 Iron 91 ug/dL (50-170) 10/17/17 14:00 TIBC 356 ug/dL (228-460) 10/17/17 14:00 Iron Saturation 25.56 (12.00-45.00) 10/17/17 14:00 Ferritin 21.2 ng/mL (10.0-291.0) 10/17/17 14:00 Total Bilirubin 0.4 mg/dL (0.2-1.3) 10/17/17 14:00 AST 18 U/L (14-36) 10/17/17 14:00 ALT 21 U/L (9-52) 10/17/17 14:00 Alkaline Phosphatase 77 U/L (38-126) 10/17/17 14:00 Total Protein 6.8 g/dL (6.3-8.2) 10/17/17 14:00 Albumin 3.9 g/dL (3.5-5.0) 10/17/17 14:00 Prealbumin 24.0 mg/dL (18.0-42.0) 10/17/17 14:00 Triglycerides 97 mg/dL (<150) 10/17/17 14:00 Cholesterol 228 mg/dL (<200) H 10/17/17 14:00 LDL Cholesterol, Calc 137 mg/dL (0-99) H 10/17/17 14:00 HDL Cholesterol 72 mg/dL (40-60) H 10/17/17 14:00 Vitamin A 44 ug/dL (38-106) 10/17/17 14:00 Vitamin B1 45 ug/L (38-122) 10/17/17 14:00 Vitamin B12 305.0 pg/mL (200.0-944.0) 10/17/17 14:00 Vitamin D 25-Hydroxy 24.3 ng/mL (30.0-100.0) L 10/17/17 14:00 Folate 7.9 ng/mL 10/17/17 14:00 TSH 2.110 mIU/L (0.465-4.680) 10/17/17 14:00 PTH Intact 57.9 pg/mL (14.0-72.0) 10/17/17 14:00 Copper 1209 ug/L (810-1990) 10/17/17 14:00 Selenium 127 mcg/L (63-160) 10/17/17 14:00 Zinc 74 ug/dL (60-130) 10/17/17 14:00 Cholesterol elevated. Vitamin D low. ASSESSMENT: 1. Morbid obesity due to excess calories 2. Body mass index reduced from 49.7 down to 34.2 3. History of adjustable gastric band. 4. Hypercholesterolemia 5. Vitamin D deficiency PLAN: 1. Recommend band fill. 2. Vitamin D supplement 5000 units daily advised. PROCEDURE: Band adjustment. DESCRIPTION: After verbal consent, the skin over the pin site was cleansed with alcohol. 1 mL of 1% Xylocaine was placed over the skin. A #22-gauge Sung needle was used to access the port. 4 mL of normal saline was placed. Total volume in band of 7 mL. Patient tolerated drinking water. Recommend follow-up in 3-4 weeks for additional adjustment as needed.
== END | disposition home or self-care (01) ==
LOC: BARWHC3 14:23
PROVIDERS: ATTEND Surgery Plastic and Reconstructive Surgery
DX: Z09 Encounter for follow-up examination after completed treatment for conditions other than malignant neoplasm (principal); K95.09 Other complications of gastric band procedure; T73 Effects of other deprivation; E66.01 Morbid (severe) obesity due to excess calories; E78.00 Pure hypercholesterolemia, unspecified; E55.9 Vitamin D deficiency, unspecified; F32.9 Major depressive disorder, single episode, unspecified; Z68.34 Body mass index [BMI] 34.0-34.9, adult; Z98.84 Bariatric surgery status; Z79.899 Other long term (current) drug therapy; Z88.0 Allergy status to penicillin; Z88.5 Allergy status to narcotic agent
CPT/HCPCS: 99212

== ENCOUNTER → 2017-12-28 | Outpatient (CLI) | payer BC ==
--- NOTE | 2018-01-01 09:02 | MM ---
Reason for exam: screening (asymptomatic). Last mammogram was performed 2 years ago. History: Patient is postmenopausal. Took estrogen for 21 years beginning at age 36. Physical Findings: A clinical breast exam by your physician is recommended on an annual basis and results should be correlated with mammographic findings. MG 3D Screening Mammo W/Cad Bilateral CC and MLO view(s) were taken. Prior study comparison: December 28, 2015, bilateral MG 3d screening mammo w/cad. March 10, 2014, mammogram, performed at [facility]. There are scattered fibroglandular densities. No significant changes when compared with prior studies. ASSESSMENT: Negative, BI-RAD 1 RECOMMENDATION: Routine screening mammogram of both breasts in 1 year.
== END | disposition home or self-care (01) ==
LOC: RADMAMWWP 11:25
PROVIDERS: ATTEND Obstetrics & Gynecology Obstetrics
DX: Z12.31 Encounter for screening mammogram for malignant neoplasm of breast (principal)
CPT/HCPCS: 77063; 77067

== ENCOUNTER → 2018-01-04 | Outpatient (CLI) | payer BC ==
[2018-01-04 12:04] LABS: HCT 41.3 % (34.0-46.0); MCH 31.8 pg (25.0-35.0); MCHC 33.9 g/dL (31.0-37.0); MCV 93.7 fL (80.0-100.0); Mean Platelet Volume 7.8; Platelet Count 238 k/uL (150-450); RDW 12.9 % (11.5-15.5); WBC 6.4 k/uL (3.8-10.6)
[2018-01-04 12:19] LABS: Amorphous Sediment,Urine Rare /hpf; Appearance,Urine Cloudy (Clear); Bilirubin,Urine Negative (Negative); Blood,Urine Negative (Negative); Color,Urine Yellow; Glucose,Urine (UA) Negative (Negative); Ketones,Urine Negative (Negative); Leukocyte Esterase,Urine Negative (Negative); Mucus,Urine Many /hpf; Nitrite,Urine Negative (Negative); PH, Urine 6.5 (5.0-8.0); Protein,Urine Trace (Negative); Specific Gravity,Urine 1.019 (1.001-1.035); Squamous Epithelial Cell,Urine 1 /hpf (0-4); Urobilinogen,Urine <2.0 mg/dL (<2.0)
[2018-01-04 12:26] LABS: Albumin 4.2 g/dL (3.5-5.0); Calcium 9.6 mg/dL (8.4-10.2); Potassium 4.4 mmol/L (3.5-5.1); Total Bilirubin 0.3 mg/dL (0.2-1.3); Total Protein 7.1 g/dL (6.3-8.2)
[2018-01-04 16:18] LABS: Vitamin D 25 Hydroxy 23.9 ng/mL (30.0-100.0)
[2018-01-04 17:10] LABS: Hepatitis C IgG Antibody Non-Reactive (Non-Reactive)
== END | disposition home or self-care (01) ==
LOC: LABWHC1 11:37
PROVIDERS: ATTEND Family Medicine
DX: Z00.00 Encounter for general adult medical examination without abnormal findings (principal); E55.9 Vitamin D deficiency, unspecified; Z13.9 Encounter for screening, unspecified
CPT/HCPCS: 36415; 80053; 80061; 81001; 82306; 85027; 86803

== ENCOUNTER → 2018-02-27 | Outpatient (CLI) | payer BC ==
[2018-02-27 15:40] VITALS: BMI 33.7
[2018-02-27 16:10] VITALS: BP 107/72; PULSE 64; RESP 16; TEMP 98.3
--- NOTE | 2018-02-27 16:15 | P.PN ---
Subjective Progress Note Date: 02/27/18 DATE OF SERVICE: 02/27/2018 CHIEF COMPLAINT: Gastric band follow-up HISTORY OF PRESENT ILLNESS: Mimi Barbour is a 57-year-old female who is status post band removal in 03/09/2017 secondary to complication of acute band slippage. She now has replacement of her adjustable gastric band on 08/06/2017. She is 7 months postop. She reports no appetite. She is not here for an adjustment. Her highest weight was 305 pounds. Today she comes in weighing 207 pounds from 210 pounds, 2 months ago. She has lost 3 pounds in 2 months. Her ideal body weight for her 5 feet 5-3/4 inch frame is 149 pounds. She has maintained 98 pound weight loss. Percent excess weight loss is 63%. Her body mass index is reduced from 49.7 down to 33.8. PAST MEDICAL HISTORY: 1. Morbid obesity, initial 49.7 2. Depression. 3. Vitamin D deficiency. PAST SURGICAL HISTORY: 1. History of adjustable gastric band placement and revision 2. Panniculectomy. 3. Band removal. 4. EGD. MEDICATIONS: 1. Topamax. 2. Zoloft. 3. Vitamin D. ALLERGIES: 1. CODEINE. 2. PENICILLIN. SOCIAL HISTORY: Lifelong nontobacco user. She is with at bedside. FAMILY HISTORY: Consistent with morbid obesity. REVIEW OF SYSTEMS: CONSTITUTIONAL: Her highest weight was 305 pounds. Today she comes in weighing 208 pounds from 210 pounds, 2 months ago. She has lost 3 pounds in 2 months. Her ideal body weight for her 5 feet 5-3/4 inch frame is 149 pounds. She has maintained 98 pound weight loss. Percent excess weight loss is 63%. Her body mass index is reduced from 49.7 down to 33.8. HEENT: Denies troubles with vision or hearing. No reports of dysphagia. ENDOCRINE: No reports of thyroid disorder or diabetes type 2. RESPIRATORY: Denies any obstructive sleep apnea or dyspnea on exertion. CARDIOVASCULAR: Denies any chest pain or heart attack. GASTROINTESTINAL: Denies any gastroesophageal reflux disease. No reports of blood in stools. MUSCULOSKELETAL: Denies any diffuse joint pain. NEURO: No reports of stroke or seizure disorder. PSYCH: No reports of depression or suicidal ideation. HEMATOLOGIC: Denies any easy bruising or bleeding. SKIN: No panniculitis or rash. PHYSICAL EXAM: VITAL SIGNS: 5 foot 5-3/4 inch frame, 207 pounds, body mass index 33.8. Vital Signs Temp 98.3 F 02/27/18 16:08 Pulse 64 02/27/18 16:08 Resp 16 02/27/18 16:08 BP 107/72 02/27/18 16:08 Pulse Ox GENERAL: A 57-year-old female in no acute distress. HEENT: No scleral icterus. Extraocular movements grossly intact. Moist mucosa. Hears conversational speech. NECK: Supple, no lymphadenopathy. CHEST: Nonlabored respirations. Equal bilateral excursions. CARDIOVASCULAR: Regular rate and rhythm. ABDOMEN: Soft. No signs of infection. Nontender and nondistended. Port site without erythema. MUSCULOSKELETAL: No clubbing, cyanosis, or edema. NEURO: No focal or from appropriate affect. Alert and oriented to person, place , and time. PSYCH: Appropriate affect. Alert and oriented to person, place, and time. SKIN: Good skin turgor. Well perfused. ASSESSMENT: 1. Morbid obesity due to excess calories 2. Body mass index reduced from 49.7 down to 33.8 3. History of adjustable gastric band. 4. Hypercholesterolemia 5. Vitamin D deficiency 6. Dietary surveillance and counseling. PLAN: 1. She is looking into a revision from her band as her weight loss is now at a standstill. 2. Recommend dietitian visit in the interim. 3. She may benefit from revision to gastrectomy pending insurance guidelines. Objective - Vital Signs Vital signs: Vital Signs Temp 98.3 F 02/27/18 16:08 Pulse 64 02/27/18 16:08 Resp 16 02/27/18 16:08 BP 107/72 02/27/18 16:08 Pulse Ox Intake & Output 02/26/18 02/27/18 02/27/18 18:59 06:59 18:59 Weight 94.166 kg
== END | disposition home or self-care (01) ==
LOC: BARWHC3 14:21
PROVIDERS: ATTEND Surgery Plastic and Reconstructive Surgery
DX: Z51.89 Encounter for other specified aftercare (principal); Z98.84 Bariatric surgery status; E66.01 Morbid (severe) obesity due to excess calories; E78.00 Pure hypercholesterolemia, unspecified; E55.9 Vitamin D deficiency, unspecified; Z71.3 Dietary counseling and surveillance; Z68.33 Body mass index [BMI] 33.0-33.9, adult
CPT/HCPCS: 97803; 99211

== ENCOUNTER 2018-05-20 02:53 | Emergency (ER) | payer BC ==
--- NOTE | 2018-05-20 03:16 | ED ---
General Adult HPI - General Chief complaint: Nausea/Vomiting/Diarrhea Stated complaint: vomiting Time Seen by Provider: 05/20/18 03:15 Source: patient Mode of arrival: ambulatory Limitations: no limitations - History of Present Illness Initial comments: Mimi is a 57-year-old female with past medical history significant for gastric sleeve revised in July 2017. Patient presents the emergency department today for evaluation of nausea, vomiting and diarrhea ports that she was in her usual state of health last week. She states that on she developed abdominal cramping nausea, nonbloody nonbilious emesis and nonbloody diarrhea. She reports that this persisted throughout the afternoon on but on Sunday she felt well. She reports that Sunday evening she began to feel somewhat ill but did not have any nausea, vomiting or diarrhea. Throughout the day on Sunday and Sunday she has had persistent nausea, nonbloody nonbilious emesis and nonbloody diarrhea. Patient reports she's been unable to keep down any food or fluids including water. She notes that this evening she developed a pruritic rash on her trunk and legs which prompted her to come to the ER for further evaluation. Patient denies any known sick contacts, no one else in the house is having any GI upset. She denies any international travel or outdoor activities in which she would've drinking unfiltered water. She does report eating at restaurants frequently but nowhere that she is aware has had a hepatitis A outbreak. Patient reports her abdominal pain is crampy in nature, similar to having menses. She has taken no medications for any of her symptoms since they began on . - Related Data Home Medications Medication Instructions Recorded Confirmed Sertraline [Zoloft] 100 mg PO BID 09/05/16 02/28/18 Topiramate [Topamax] 100 mg PO BID 09/05/16 02/28/18 Estradiol 1 patch TRANSDERM WE 09/29/16 02/28/18 SUMAtriptan SUCCINATE [Imitrex] 100 mg PO BID PRN 07/31/17 02/28/18 Previous Rx's Medication Instructions Recorded Nitrofurantoin Monohyd/M-Cryst 100 mg PO Q12HR 5 Days #10 cap 05/20/18 [Macrobid] Ondansetron [Zofran ODT] 4 mg PO Q8HR #12 tab 05/20/18 Allergies Allergy/AdvReac Type Severity Reaction Status Date / Time codeine Allergy Chest Pain Verified 05/20/18 03:04 Penicillins Allergy Rash/Hives Verified 05/20/18 03:04 Review of Systems ROS Statement: Those systems with pertinent positive or pertinent negative responses have been documented in the HPI. ROS Other: All systems not noted in ROS Statement are negative. Past Medical History Past Medical History: GERD/Reflux, Osteoarthritis (OA), Sleep Apnea/CPAP/BIPAP Additional Past Medical History / Comment(s): Hx of sleep apnea (resolved with wt loss), migraines., states having nausea and vomiting. History of Any Multi-Drug Resistant Organisms: None Reported Past Surgical History: Bariatric Surgery, Hysterectomy, Joint Replacement, Orthopedic Surgery, Tonsillectomy Additional Past Surgical History / Comment(s): Total right knee, Lap Band ( band was replaced 08/06/17), panniculectomy., filomena carpal tunnel., knee arthroscopy., colonoscopy. Past Anesthesia/Blood Transfusion Reactions: No Reported Reaction Past Psychological History: Anxiety Smoking Status: Former smoker Past Alcohol Use History: None Reported Past Drug Use History: None Reported - Past Family History Sister(s) Family Medical History: Deep Vein Thrombosis (DVT) Brother(s) Family Medical History: Deep Vein Thrombosis (DVT) General Exam - General Exam Comments Initial Comments: GENERAL: Patient is well-developed and well-nourished. Patient is nontoxic and well- hydrated and is in no distress. HENT: Normocephalic, Atraumatic. Neck is soft and supple. No significant lymphadenopathy is noted. Oropharynx is clear. Moist mucous membranes. Neck has full range of motion without eliciting any pain. EYES: The sclera were anicteric and conjunctiva were pink and moist. Extraocular movements were intact and pupils were equal round and reactive to light. Eyelids were unremarkable. PULMONARY: Unlabored respirations. Good breath sounds bilaterally. No audible rales rhonchi or wheezing was noted. CARDIOVASCULAR: There is a regular rate and rhythm without any murmurs gallops or rubs. ABDOMEN: Soft and nontender with active bowel sounds. SKIN: Skin is noted to have a erythematous rash on the back trunk and medial thighs, patient reports that this is highly pruritic. Appears similar to a dermatitis or ALLERGIC reaction. NEUROLOGIC: Patient is alert and oriented x3. Cranial nerves II through XII are grossly intact. Motor and sensory are also intact. Normal speech, volume and content. Symmetrical smile. MUSCULOSKELETAL: Normal extremities with adequate strength and full range of motion. No lower extremity swelling or edema. No calf tenderness. LYMPHATICS: No significant lymphadenopathy is noted PSYCHIATRIC: Normal psychiatric evaluation. Limitations: no limitations Limitations: no limitations Course Vital Signs 05/20/18 05/20/18 03:02 05:28 Temperature 98.2 F 98 F Pulse Rate 85 64 Respiratory 16 15 Rate Blood Pressure 96/51 108/52 O2 Sat by Pulse 94 L 96 Oximetry Medical Decision Making - Medical Decision Making The patient was seen and evaluated, history was obtained from the patient would medical record Patient with 4 days of GI illness and now developing a pruritic rash, consistent abdominal cramping nausea and vomiting resolved prior to arrival however the rash developed which prompted her to come for evaluation Labs and imaging ordered Labs with mild leukocytosis with left shift as well as acute kidney injury IV fluids infusing KUB x-ray with no significant abnormalities Results were discussed with the patient, she reports that the pruritus from her rash has improved after the Benadryl she has no further abdominal pain nausea or vomiting. I offered the patient computed tomography scan for further evaluation, however patient doesnt feel that is necessary at this time. UA reveals UTI, rocephin ordered Will discharge patient home with PO Macrobid Offered patient observation for further evaluation of symptoms and rash, however she is comfortable with plan for discharge home. Return parameters were discussed. Patient was discharged home in stable condition. - Lab Data Result diagrams: 05/20/18 03:22 05/20/18 03:22 Lab Results 05/20/18 05/20/18 05/20/18 Range/Units 03:22 03:22 03:51 WBC 13.0 H (3.8-10.6) k/uL RBC 5.03 (3.80-5.40) m/uL Hgb 15.4 (11.4-16.0) gm/dL Hct 47.1 H (34.0-46.0) % MCV 93.7 (80.0-100.0) fL MCH 30.7 (25.0-35.0) pg MCHC 32.8 (31.0-37.0) g/dL RDW 13.5 (11.5-15.5) % Plt Count 288 (150-450) k/uL Neutrophils % 85 % Lymphocytes % 9 % Monocytes % 4 % Eosinophils % 1 % Basophils % 0 % Neutrophils # 11.1 H (1.3-7.7) k/uL Lymphocytes # 1.2 (1.0-4.8) k/uL Monocytes # 0.5 (0-1.0) k/uL Eosinophils # 0.1 (0-0.7) k/uL Basophils # 0.0 (0-0.2) k/uL Sodium 141 (137-145) mmol/L Potassium 4.2 (3.5-5.1) mmol/L Chloride 110 H (98-107) mmol/L Carbon Dioxide 19 L (22-30) mmol/L Anion Gap 12 mmol/L BUN 15 (7-17) mg/dL Creatinine 1.05 H (0.52-1.04) mg/dL Est GFR (CKD-EPI)AfAm 69 (>60 ml/min/1.73 sqM) Est GFR (CKD-EPI)NonAf 60 (>60 ml/min/1.73 sqM) Glucose 112 H (74-99) mg/dL Calcium 9.5 (8.4-10.2) mg/dL Total Bilirubin 0.7 (0.2-1.3) mg/dL AST 19 (14-36) U/L ALT 25 (9-52) U/L Alkaline Phosphatase 76 (38-126) U/L Total Protein 7.2 (6.3-8.2) g/dL Albumin 4.1 (3.5-5.0) g/dL Urine Color Urine Appearance (Clear) Urine pH (5.0-8.0) Ur Specific [place] (1.001-1.035) Urine Protein (Negative) Urine Glucose (UA) (Negative) Urine Ketones (Negative) Urine Blood (Negative) Urine Nitrite (Negative) Urine Bilirubin (Negative) Urine Urobilinogen (<2.0) mg/dL Ur Leukocyte Esterase (Negative) Urine RBC (0-5) /hpf Hyaline Casts (0-2) /lpf Urine Mucus (None) /hpf Hepatitis A IgM Ab NEGATIVE 05/20/18 Range/Units 04:05 WBC (3.8-10.6) k/uL RBC (3.80-5.40) m/uL Hgb (11.4-16.0) gm/dL Hct (34.0-46.0) % MCV (80.0-100.0) fL MCH (25.0-35.0) pg MCHC (31.0-37.0) g/dL RDW (11.5-15.5) % Plt Count (150-450) k/uL Neutrophils % % Lymphocytes % % Monocytes % % Eosinophils % % Basophils % % Neutrophils # (1.3-7.7) k/uL Lymphocytes # (1.0-4.8) k/uL Monocytes # (0-1.0) k/uL Eosinophils # (0-0.7) k/uL Basophils # (0-0.2) k/uL Sodium (137-145) mmol/L Potassium (3.5-5.1) mmol/L Chloride (98-107) mmol/L Carbon Dioxide (22-30) mmol/L Anion Gap mmol/L BUN (7-17) mg/dL Creatinine (0.52-1.04) mg/dL Est GFR (CKD-EPI)AfAm (>60 ml/min/1.73 sqM) Est GFR (CKD-EPI)NonAf (>60 ml/min/1.73 sqM) Glucose (74-99) mg/dL Calcium (8.4-10.2) mg/dL Total Bilirubin (0.2-1.3) mg/dL AST (14-36) U/L ALT (9-52) U/L Alkaline Phosphatase (38-126) U/L Total Protein (6.3-8.2) g/dL Albumin (3.5-5.0) g/dL Urine Color Yellow Urine Appearance Cloudy H (Clear) Urine pH 6.0 (5.0-8.0) Ur Specific [place] 1.022 (1.001-1.035) Urine Protein 1+ H (Negative) Urine Glucose (UA) Negative (Negative) Urine Ketones 1+ H (Negative) Urine Blood Negative (Negative) Urine Nitrite Negative (Negative) Urine Bilirubin 1+ H (Negative) Urine Urobilinogen 2.0 (<2.0) mg/dL Ur Leukocyte Esterase Moderate H (Negative) Urine RBC 2 (0-5) /hpf Hyaline Casts 287 H (0-2) /lpf Urine Mucus Many H (None) /hpf Hepatitis A IgM Ab Disposition Clinical Impression: Dehydration, History of bariatric surgery, UTI (urinary tract infection), Rash Disposition: HOME SELF-CARE Condition: Good Instructions: Acute Nausea and Vomiting (ED), Acute Diarrhea (ED) Prescriptions: Nitrofurantoin Monohyd/M-Cryst [Macrobid] 100 mg PO Q12HR 5 Days #10 cap Ondansetron [Zofran ODT] 4 mg PO Q8HR #12 tab Is patient prescribed a controlled substance at d/c from ED?: No Referrals: Porfirio Mejia MD [Primary Care Provider] - 1-2 days
[2018-05-20] MEDS ORDERED: diphenhydrAMINE 50 MG/ML 1 ML VIAL IVP STA (03:42)
[2018-05-20] MEDS ORDERED: ONDANSETRON ODT 4 MG TAB PO STA (03:42)
[2018-05-20] MEDS ORDERED: SODIUM CHLORIDE 0.9% 1,000 ML IV STA (03:42)
[2018-05-20] MEDS ORDERED: DICYCLOMINE 10 MG/ML 2 ML AMP IM STA (03:43)
[2018-05-20 03:54] LABS: Basophils % (A) 0 %; Eosinophils # (A) 0.1 k/uL (0-0.7); Eosinophils % (A) 1 %; HCT 47.1 % (34.0-46.0); HGB 15.4 gm/dL (11.4-16.0); Lymphocytes # (A) 1.2 k/uL (1.0-4.8); Lymphocytes % (A) 9 %; MCH 30.7 pg (25.0-35.0); MCHC 32.8 g/dL (31.0-37.0); MCV 93.7 fL (80.0-100.0); Mean Platelet Volume 7.8; Monocytes # (A) 0.5 k/uL (0-1.0); Monocytes % (A) 4 %; Neutrophils # (A) 11.1 k/uL (1.3-7.7); Neutrophils % (A) 85 %; Platelet Count 288 k/uL (150-450); RBC 5.03 m/uL (3.80-5.40); RDW 13.5 % (11.5-15.5)
--- NOTE | 2018-05-20 03:56 | XR ---
EXAMINATION TYPE: XR KUB DATE OF EXAM: 05/20/2018 COMPARISON: NONE HISTORY: Vomiting TECHNIQUE: 2 views upright FINDINGS: There is no sign of intestinal obstruction or pneumoperitoneum. There is a gastric sleeve n oted. Lung bases are clear. There are no pathologic calcifications over the kidneys. There is no evid ence of a mass. IMPRESSION: Nonacute abdomen.
[2018-05-20 04:07] LABS: Albumin 4.1 g/dL (3.5-5.0); Calcium 9.5 mg/dL (8.4-10.2); Potassium 4.2 mmol/L (3.5-5.1); Total Bilirubin 0.7 mg/dL (0.2-1.3); Total Protein 7.2 g/dL (6.3-8.2)
[2018-05-20 04:40] LABS: Appearance,Urine Cloudy (Clear); Bilirubin,Urine 1+ (Negative); Blood,Urine Negative (Negative); Color,Urine Yellow; Glucose,Urine (UA) Negative (Negative); Hyaline Casts,Urine 287 /lpf (0-2); Ketones,Urine 1+ (Negative); Leukocyte Esterase,Urine Moderate (Negative); Mucus,Urine Many /hpf; Nitrite,Urine Negative (Negative); Protein,Urine 1+ (Negative); RBC,Urine 2 /hpf (0-5); Specific Gravity,Urine 1.022 (1.001-1.035)
[2018-05-20 04:43] LABS: Hepatitis A AB IgM Index 0.01; Hepatitis A Antibody IgM NEGATIVE
[2018-05-20] MEDS ORDERED: cefTRIAXone IN SWFI 1,000 MG/10 ML SYRINGE IVP STA (04:56)
[2018-05-20 05:36] VITALS: BP 108/52; PULSE 64; RESP 15; TEMP 98
[2018-05-21 12:16] LABS: Hepatitis B Core IgM Non-Reactive (Non-Reactive)
== END 2018-05-20 05:28 | disposition home or self-care (01) ==
LOC: EC 02:53
DX: N39.0 Urinary tract infection, site not specified (principal); E86.0 Dehydration; R21 Rash and other nonspecific skin eruption; D72.829 Elevated white blood cell count, unspecified; G47.30 Sleep apnea, unspecified; F41.9 Anxiety disorder, unspecified; Z79.899 Other long term (current) drug therapy; Z88.0 Allergy status to penicillin; Z98.84 Bariatric surgery status; Z87.891 Personal history of nicotine dependence
CPT/HCPCS: 36415; 80053; 80074; 85025; 81001; 74018; 99284; 96374; 96375; 96361; 96372; J1200; J0500; J0696

== ENCOUNTER → 2018-09-04 | Outpatient (CLI) | payer BC ==
[2018-09-04 15:25] VITALS: BP 122/72; PULSE 66; TEMP 98.3; BMI 31.8
--- NOTE | 2018-09-04 15:32 | P.PN ---
Subjective Progress Note Date: 09/04/18 HPI: She has lost weight. She is looking for an adjustment. ABDOMEN: Has tenderness the left upper quadrant. PLAN: 1. She now has GERD 2. May have slippage of band 3. Recommend stat esophagram 4. Recommend zantac and omeprazole 5. No adjustment at this time 6. Xrays reviewed Objective - Vital Signs Vital signs: Vital Signs Temp 98.3 F 09/04/18 15:08 Pulse 66 09/04/18 15:08 Resp BP 122/72 09/04/18 15:08 Pulse Ox Intake & Output 09/03/18 09/04/18 09/04/18 18:59 06:59 18:59 Weight 88.859 kg
--- NOTE | 2018-09-04 19:32 | FL ---
EXAMINATION TYPE: FL barium swallow DATE OF EXAM: 09/04/2018 CLINICAL HISTORY: Nausea and vomiting. Gastric lap band. TECHNIQUE: A single contrast esophagram is performed utilizing 3 ounces of EZ Paque. A total of 2 m inutes and 47 seconds of fluoroscopic time was utilized during procedure. 47 images were saved during the examination. COMPARISON: None FINDINGS: There is mild delay of flow of contrast through the gastric pouch. The phi angle is lower l imits of normal measuring approximately 5-6 degrees with the lap band oriented nearly vertical. An ai r-filled pouch is seen on the net web developer image, mildly dilated after instillation of contrast. There is ev entual flow into the gastric body and antrum with marked delay flow through the gastric body to the s mall bowel. No discrete stricture is seen within the duodenum. No contrast extravasation is noted. Th e delayed passage of contrast through the gastric lap band results in moderate gastroesophageal reflu x. IMPRESSION: Findings suggesting gastric band slippage with delayed flow through the gastric lap band, mild proximal pouch dilatation, gastroesophageal reflux due to the delay, an additional finding of d elayed gastric peristalsis and emptying into the small bowel. Findings were communicated with the ord ering provider directly after the examination by filling out the standard document as well as telepho ne communication by the technologist with the ordering physician's office.
== END | disposition home or self-care (01) ==
LOC: BARWHC3 14:26
PROVIDERS: ATTEND Surgery Plastic and Reconstructive Surgery
DX: Z46.51 Encounter for fitting and adjustment of gastric lap band (principal); K21.9 Gastro-esophageal reflux disease without esophagitis
CPT/HCPCS: 74220; 99211

== ENCOUNTER → 2018-09-19 | Outpatient (CLI) | payer BC ==
[2018-09-19 12:18] LABS: Basophils % (A) 1 %; Eosinophils # (A) 0.2 k/uL (0-0.7); Eosinophils % (A) 3 %; HCT 42.1 % (34.0-46.0); HGB 13.4 gm/dL (11.4-16.0); Lymphocytes # (A) 1.2 k/uL (1.0-4.8); Lymphocytes % (A) 24 %; MCH 30.4 pg (25.0-35.0); MCHC 31.9 g/dL (31.0-37.0); MCV 95.4 fL (80.0-100.0); Mean Platelet Volume 7.2; Monocytes # (A) 0.3 k/uL (0-1.0); Monocytes % (A) 6 %; Neutrophils # (A) 3.3 k/uL (1.3-7.7); Neutrophils % (A) 64 %; Platelet Count 236 k/uL (150-450); RBC 4.42 m/uL (3.80-5.40); RDW 13.7 % (11.5-15.5); WBC 5.1 k/uL (3.8-10.6)
[2018-09-19 12:34] LABS: Calcium 9.3 mg/dL (8.4-10.2); Potassium 4.3 mmol/L (3.5-5.1); Total Bilirubin 0.5 mg/dL (0.2-1.3); Total Protein 6.8 g/dL (6.3-8.2)
== END | disposition home or self-care (01) ==
LOC: LABPAT 10:44
PROVIDERS: ATTEND Surgery Plastic and Reconstructive Surgery
DX: Z01.818 Encounter for other preprocedural examination (principal); Z01.812 Encounter for preprocedural laboratory examination
CPT/HCPCS: 36415; 80053; 85025; 86850; 86900; 86901; 93005

== ENCOUNTER 2018-10-21 05:54 | Day surgery (SDC) | payer BC ==
--- NOTE | 2018-10-21 05:41 | P.GSHP ---
History of Present Illness H&P Date: 10/21/18 DATE OF SERVICE: 10/21/2018 CHIEF COMPLAINT: Morbid obesity HISTORY OF PRESENT ILLNESS: Mimi Barbour is a 58-year-old female who comes in with band slippage. She now has new gastroesophageal reflux disease. She presents for removal of her band. PAST MEDICAL HISTORY: 1. Morbid obesity, initial 49.7 2. Depression. 3. Vitamin D deficiency. PAST SURGICAL HISTORY: 1. History of adjustable gastric band placement and revision 2. Panniculectomy. 3. Band removal. 4. EGD. MEDICATIONS: 1. Topamax. 2. Zoloft. 3. Vitamin D. ALLERGIES: 1. CODEINE. 2. PENICILLIN. SOCIAL HISTORY: Lifelong nontobacco user. She is with at bedside. FAMILY HISTORY: Consistent with morbid obesity. REVIEW OF SYSTEMS: CONSTITUTIONAL: Her highest weight was 305 pounds. Her ideal body weight for her 5 feet 5-3/4 inch frame is 149 pounds. Her body mass index is reduced from 49.7 HEENT: Denies troubles with vision or hearing. No reports of dysphagia. ENDOCRINE: No reports of thyroid disorder or diabetes type 2. RESPIRATORY: Denies any obstructive sleep apnea or dyspnea on exertion. CARDIOVASCULAR: Denies any chest pain or heart attack. GASTROINTESTINAL: Denies any gastroesophageal reflux disease. No reports of blood in stools. MUSCULOSKELETAL: Denies any diffuse joint pain. NEURO: No reports of stroke or seizure disorder. PSYCH: No reports of depression or suicidal ideation. HEMATOLOGIC: Denies any easy bruising or bleeding. SKIN: No panniculitis or rash. PHYSICAL EXAM: VITAL SIGNS: 5 foot 5-3/4 inch frame, 195 pounds, body mass index 31.9 GENERAL: A 57-year-old female in no acute distress. HEENT: No scleral icterus. Extraocular movements grossly intact. Moist mucosa. Hears conversational speech. NECK: Supple, no lymphadenopathy. CHEST: Nonlabored respirations. Equal bilateral excursions. CARDIOVASCULAR: Regular rate and rhythm. ABDOMEN: Has tenderness the left upper quadrant. MUSCULOSKELETAL: No clubbing, cyanosis, or edema. NEURO: No focal or from appropriate affect. Alert and oriented to person, place , and time. PSYCH: Appropriate affect. Alert and oriented to person, place, and time. SKIN: Good skin turgor. Well perfused. STUDIES reviewed now shows slippage of adjustable gastric band. Will need removal of the band as this her second complication from her adjustable gastric band. ASSESSMENT: 1. Morbid obesity due to excess calories 2. Body mass index reduced from 49.7 down to 31.9 3. History of adjustable gastric band. 4. Hypercholesterolemia 5. Vitamin D deficiency 6. Dietary surveillance and counseling. 7. Gastric band slippage PLAN: 1. Recommend removal of band Past Medical History Past Medical History: GERD/Reflux, Hyperlipidemia, Osteoarthritis (OA), Sleep Apnea/CPAP/BIPAP, Thyroid Disorder Additional Past Medical History / Comment(s): Hx of sleep apnea (resolved with wt loss), migraines, hypothyroidism. History of Any Multi-Drug Resistant Organisms: None Reported Past Surgical History: Bariatric Surgery, Hysterectomy, Joint Replacement, Orthopedic Surgery, Tonsillectomy Additional Past Surgical History / Comment(s): Right knee replacement, Lap Band (band was replaced 08/06/17), panniculectomy, bilateral carpal tunnel, knee arthroscopy, colonoscopy. Past Anesthesia/Blood Transfusion Reactions: No Reported Reaction Past Psychological History: Anxiety Smoking Status: Never smoker Past Alcohol Use History: None Reported Additional Past Alcohol Use History / Comment(s): SMOKED LESS THAN 1 PPD., QUIT 16 YRS AGO (2000). SMOKED APPROX 16 YEARS. Past Drug Use History: None Reported - Past Family History Sister(s) Family Medical History: Deep Vein Thrombosis (DVT) Brother(s) Family Medical History: Deep Vein Thrombosis (DVT) Medications and Allergies Home Medications Medication Instructions Recorded Confirmed Type Sertraline [Zoloft] 100 mg PO BID 09/05/16 10/16/18 History Topiramate [Topamax] 100 mg PO BID 09/05/16 10/16/18 History SUMAtriptan SUCCINATE [Imitrex] 100 mg PO BID PRN 07/31/17 10/16/18 History Omeprazole 40 mg PO DAILY PRN 10/16/18 10/16/18 History Ranitidine HCl [Zantac] 150 mg PO DAILY PRN 10/16/18 10/16/18 History Synthroid(Unknown Dose) 1 tab PO QAM 10/16/18 10/16/18 History Allergies Allergy/AdvReac Type Severity Reaction Status Date / Time codeine Allergy Chest Pain Verified 10/16/18 15:31 Penicillins Allergy Rash/Hives Verified 10/16/18 15:31
[~2018-10-21 05:54] MED LIST changes: -ACETAMINOPHEN IV (For NPO) 1,000 MG in EMPTY BAG 1 BAG IVPB ONE; -ENOXAPARIN 40 MG/0.4 ML SYRINGE SQ ONE; +ENOXAPARIN 40 MG/0.4 ML SYRINGE SQ STA; -HYDROmorphone 0.5 MG/0.5 ML SYRINGE IVP PRN; -Pre Op ABX Message 1 EACH MISC MISCELLANE ONE; -SCOPOLAMINE 1.5MG/72HR PATCH TRANSDERM STA
[2018-10-21] MEDS ORDERED: LIDOCAINE 1% 20 ML VIAL (10MG/ML) FOR IV START INTRADERMA ONE (06:34)
[2018-10-21] MEDS: fentaNYL (PF) 50 MCG/ML 2 ML AMP IV PRN ×2 (06:49→06:55)
[2018-10-21] MEDS ORDERED: MIDAZOLAM 2 MG/2 ML VIAL ONE (07:25)
[2018-10-21] MEDS ORDERED: LIDOCAINE 1% INJ 10MG/ML (20 ML MDV) ONE (07:25)
[2018-10-21] MEDS ORDERED: PROPOFOL 10 MG/ML 20 ML VIAL IV ONE (07:25)
[2018-10-21] MEDS ORDERED: NEOSTIGMINE 1 MG/ML 10 ML VIAL ONE (07:25)
[2018-10-21] MEDS ORDERED: ePHEDrine SULFATE/0.9% NACL/PF 50 MG/5 ML SYRINGE IV ONE (07:25)
[2018-10-21] MEDS ORDERED: GLYCOPYRROLATE 0.2 MG/ML 2 ML VIAL ONE (07:25)
[2018-10-21] MEDS ORDERED: SUCCINYLCHOLINE CHLORIDE 100 MG/5 ML SYR IV ONE (07:25)
[2018-10-21] MEDS ORDERED: ROCURONIUM BROMIDE 10 MG/ML 10 ML VIAL IV ONE (07:25)
[2018-10-21] MEDS ORDERED: BUPIVACAIN-EPI 0.25%-1:200,000 30 ML VIAL SQ ONE (07:56)
[2018-10-21] MEDS ORDERED: LACTATED RINGERS 1,000 ML IV ONE (08:05)
[2018-10-21 09:04] VITALS: TEMP 96.9
--- NOTE | 2018-10-21 09:16 | P.OP ---
Date of Procedure: 10/21/18 Description of Procedure: SURGEON: ZAIN CHRISTIE MD PROGRAM DIRECTOR SUBSTANCE ABUSE: NONE. PREOPERATIVE DIAGNOSES: 1. Morbid obesity due to excess calories 2. Body mass index reduced from 49.7 down to 31.9 3. History of adjustable gastric band. 4. Hypercholesterolemia 5. Vitamin D deficiency 6. Dietary surveillance and counseling. 7. Gastric band slippage 8. Complications from adjustable gastric band. 9. Gastroesophageal reflux disease. POSTOPERATIVE DIAGNOSES: 1. Morbid obesity due to excess calories 2. Body mass index reduced from 49.7 down to 31.9 3. History of adjustable gastric band. 4. Hypercholesterolemia 5. Vitamin D deficiency 6. Dietary surveillance and counseling. 7. Gastric band slippage 8. Complications from adjustable gastric band. 9. Gastroesophageal reflux disease. OPERATION: 1. Laparoscopic removal of Allergan adjustable gastric band and all components. 2. Intraoperative esophagogastroduodenoscopy. ANESTHESIA: General with local anesthetic ESTIMATED BLOOD LOSS: 5 mL SPECIMENS REMOVED: Adjustable gastric band and components. COMPLICATIONS: None. INDICATIONS: Mimi Barbour is a 58-year-old female who comes in with band slippage. She now has new gastroesophageal reflux disease. She presents for removal of her band. Laparoscopic removal of the adjustable gastric band and all components was described. Benefits and risks of the procedure were described. Informed consent was obtained. DESCRIPTION: The patient was brought into the operating room and laid in supine position. She had received heparin for DVT prophylaxis. Patient was brought into the operating room, and laid supine. After general induction, which was uncomplicated, the abdomen was prepped and draped in standard sterile fashion. The abdomen was prepped and draped in standard sterile fashion using ChloraPrep as well as Ioban draping. Prior to incision, a timeout protocol was confirmed with the surgical team regarding patient's name, procedure to be performed, including preoperative medications. A transverse incision was made approximately 12 cm distal to the xiphoid off to the left of the midline. A 0 degree 5 mm trocar entry was performed and entered into the peritoneal cavity. The abdomen was insufflated to 15 mmHg pressure, which she tolerated well. Diagnostic laparoscopy demonstrated crisp liver edge without hepatomegaly. The port was palpated along the right upper abdomen in the subcutaneous tissues. Along the undersurface of the liver at the left side were moderate adhesions from a moderately distended proximal stomach from her gastric band slippage which appear to be chronic in nature. A 15 mm port was placed along the left lateral costal margin. Next a 5 mm port was placed at the right midclavicular line just inferior to her adjustable gastric band port. A Vandana liver retractor was placed into the abdominal cavity and used to elevate the left lobe of the liver. The patient was placed in Trendelenburg position. The port was followed with its tubing to the actual band. The gastrohepatic ligament was actually scarred from prior surgery. The anterior portion of the stomach had prolapsed above the band. Using electro-Bovie cautery, the cicatrix of the band was incised. Extensive lysis of adhesions proximal to 20 minutes was used to free the band in its entirety. The band was cut to release the band from the stomach. The tubing was cut near the abdominal wall adapter as an adhesive band was identified. The band was removed via the 15 mm port. Hemostasis was excellent. Next, attention was brought to the abdominal wall where the lap band port was palpated and removed via its previous longitudinal incision of the left upper abdominal wall. Electro-Bovie cautery was used to enter the capsule around the port. The port was removed in total along with the tubing. Diagnostic laparoscopy demonstrated complete removal of all foreign body. Upper endoscopy was performed due to moderate scarring and adhesion of the stomach. An Olympus gastroscope was passed from the posterior oropharynx down to the esophagus, where the squamocolumnar junction was found at 37 cm with LA grade B erosive esophagitis, chronic changes. The stomach was entered and bile reflux suctioned from the stomach. No gastric ulcers or duodenitis or duodenal ulcers were found. Retroflexion of the scope confirmed a Hill grade 3 lower esophageal valve upon the removal of the adjustable gastric band. No full-thickness erosion from the prior band was encountered. No blood was found within the stomach. The stomach was desufflated. The patient tolerated the procedure well. No evidence of leak was encountered from the removal of the band. I re-scrubbed into the case. The port extraction site was hemostatic and closed using 4-0 Monocryl for the deep dermis and subcutaneous tissue. The rest of the incisions were reapproximated using 4- 0 Monocryl in a running subcuticular fashion. The skin was cleansed with dilute hydrogen peroxide and OptiFoam dressing was placed over the port extraction site. At the end of the procedure, needle, sponge and instrument count was verified correct by the medical or surgical instrument maker. The patient had tolerated the procedure well. The patient was transferred to Postanesthesia Care Unit in stable condition. FINDINGS: 1. Gastric band slippage chronic with anterior posterior gastric prolapse. 2. No evidence of full-thickness gastrotomy or leak test with upper endoscopy. 3. Hill grade 2 lower esophageal valve with diaphragmatic hiatal hernia. 4. Squamocolumnar junction at 37 cm from the incisors. 5. Diaphragmatic hiatus at 40 cm from the incisors. 6. LA grade B erosive esophagitis. 7. No ischemia or infarction of the proximal stomach or pouch found. Plan - Discharge Summary Discharge Rx Participant: Yes New Discharge Prescriptions: No Action Sertraline [Zoloft] 100 mg PO BID Topiramate [Topamax] 100 mg PO BID SUMAtriptan SUCCINATE [Imitrex] 100 mg PO BID PRN PRN Reason: Migraine Headache Omeprazole 40 mg PO DAILY PRN PRN Reason: Indigestion Ranitidine HCl [Zantac] 150 mg PO DAILY PRN PRN Reason: Indigestion Synthroid(Unknown Dose) 1 tab PO QAM Discharge Medication List Sertraline [Zoloft] 100 mg PO BID 09/05/16 [History] Topiramate [Topamax] 100 mg PO BID 09/05/16 [History] SUMAtriptan SUCCINATE [Imitrex] 100 mg PO BID PRN 07/31/17 [History] Omeprazole 40 mg PO DAILY PRN 10/16/18 [History] Ranitidine HCl [Zantac] 150 mg PO DAILY PRN 10/16/18 [History] Synthroid(Unknown Dose) 1 tab PO QAM 10/16/18 [History]
[2018-10-21 10:54] VITALS: BP 112/64; PULSE 68; RESP 18
== END 2018-10-21 11:07 | disposition home or self-care (01) ==
LOC: OR 05:54
PROVIDERS: ATTEND Surgery Plastic and Reconstructive Surgery
DX: E66.01 Morbid (severe) obesity due to excess calories (principal); Z68.32 Body mass index [BMI] 32.0-32.9, adult; K66.0 Peritoneal adhesions (postprocedural) (postinfection); K95.09 Other complications of gastric band procedure; K31.89 Other diseases of stomach and duodenum; K21.0 Gastro-esophageal reflux disease with esophagitis; K44.9 Diaphragmatic hernia without obstruction or gangrene; Z98.84 Bariatric surgery status; Z98.890 Other specified postprocedural states; F32.9 Major depressive disorder, single episode, unspecified; E55.9 Vitamin D deficiency, unspecified; E78.00 Pure hypercholesterolemia, unspecified; G43.909 Migraine, unspecified, not intractable, without status migrainosus; Z99.89 Dependence on other enabling machines and devices; M19.90 Unspecified osteoarthritis, unspecified site; E03.9 Hypothyroidism, unspecified; F41.9 Anxiety disorder, unspecified; Z87.891 Personal history of nicotine dependence; Z79.890 Hormone replacement therapy; Z79.899 Other long term (current) drug therapy; Z88.5 Allergy status to narcotic agent; Z88.0 Allergy status to penicillin; Z88.8 Allergy status to other drugs, medicaments and biological substances
CPT/HCPCS: 43774; 49329; 43235; J2250; J1100; J2710; J2405; J2001; J1650; J3010; J0330; J2704; C9113; J0690

== ENCOUNTER → 2018-10-25 | Outpatient (CLI) | payer BC ==
[2018-10-25 10:29] VITALS: BP 118/79; PULSE 78; RESP 16; TEMP 98.7; BMI 31.7
--- NOTE | 2018-10-25 12:31 | P.PN ---
Subjective Progress Note Date: 10/25/18 DATE OF SERVICE: 10/25/2018 CHIEF COMPLAINT: Gastric band follow-up HISTORY OF PRESENT ILLNESS: Mimi Barbour is a 58-year-old female who is status post band removal 10/21/2018. She is post op day 4. She is doing well following band removal. Her appetite is low. No nausea or vomiting. Her highest weight was 305 pounds. Today she comes in weighing 195 pounds unchanged from 2 months ago. Her ideal body weight for her 5 feet 5-3/4 inch frame is 149 pounds. She has maintained 110 pound weight loss. Percent excess weight loss is 71 %. Her body mass index is reduced from 49.7 down to 31.7 PHYSICAL EXAM: VITAL SIGNS: 5 foot 5-3/4 inch frame, 195 pounds, body mass index 31.7 Vital Signs Temp 98.7 F 10/25/18 10:26 Pulse 78 10/25/18 10:26 Resp 16 10/25/18 10:26 BP 118/79 10/25/18 10:26 Pulse Ox GENERAL: A 57-year-old female in no acute distress. HEENT: No scleral icterus. Extraocular movements grossly intact. Moist mucosa. Hears conversational speech. NECK: Supple, no lymphadenopathy. CHEST: Nonlabored respirations. Equal bilateral excursions. CARDIOVASCULAR: Regular rate and rhythm. ABDOMEN: Dressing is clean, dry and intact. No cellulitis. MUSCULOSKELETAL: No clubbing, cyanosis, or edema. NEURO: No focal or from appropriate affect. Alert and oriented to person, place , and time. PSYCH: Appropriate affect. Alert and oriented to person, place, and time. SKIN: Good skin turgor. Well perfused. ASSESSMENT: 1. Morbid obesity due to excess calories 2. Body mass index reduced from 49.7 down to 31.7 3. Complications from adjustable gastric band. PLAN: 1. Recommend investigate for revision for her morbid obesity. Objective - Vital Signs Vital signs: Vital Signs Temp 98.7 F 10/25/18 10:26 Pulse 78 10/25/18 10:26 Resp 16 10/25/18 10:26 BP 118/79 10/25/18 10:26 Pulse Ox Intake & Output 10/24/18 10/25/18 10/25/18 18:59 06:59 18:59 Weight 88.451 kg
== END | disposition home or self-care (01) ==
LOC: BARWHC3 09:48
PROVIDERS: ATTEND Surgery Plastic and Reconstructive Surgery
DX: Z48.815 Encounter for surgical aftercare following surgery on the digestive system (principal); E66.01 Morbid (severe) obesity due to excess calories; Z68.31 Body mass index [BMI] 31.0-31.9, adult; Z98.84 Bariatric surgery status
CPT/HCPCS: 99211

== ENCOUNTER → 2019-02-07 | Outpatient (CLI) | payer BC ==
--- NOTE | 2019-02-11 11:23 | MM ---
Reason for exam: screening (asymptomatic). Last mammogram was performed 1 year and 1 month ago. History: Patient is postmenopausal. Took estrogen for 21 years beginning at age 36. Physical Findings: A clinical breast exam by your physician is recommended on an annual basis and results should be correlated with mammographic findings. MG 3D Screening Mammo W/Cad Bilateral CC and MLO view(s) were taken. Prior study comparison: December 28, 2017, bilateral MG 3d screening mammo w/cad. December 28, 2015, bilateral MG 3d screening mammo w/cad. The breast tissue is heterogeneously dense. This may lower the sensitivity of mammography. There are benign appearing round calcifications bilaterally. There is no discrete abnormality. ASSESSMENT: Benign, BI-RAD 2 RECOMMENDATION: Routine screening mammogram of both breasts in 1 year.
== END | disposition home or self-care (01) ==
LOC: RADMAMWWP 08:47
PROVIDERS: ATTEND Obstetrics & Gynecology Obstetrics
DX: Z12.31 Encounter for screening mammogram for malignant neoplasm of breast (principal)
CPT/HCPCS: 77063; 77067

== ENCOUNTER → 2019-03-10 | Outpatient (CLI) | payer BC ==
--- NOTE | 2019-03-10 09:40 | USB ---
Reason for exam: clinical finding. History: Patient is postmenopausal. Took estrogen for 21 years beginning at age 36. Physical Findings: Nurse Summary: Patient complains of left breast lump x 2 months, intermittent breast pain (nurse mj). US Breast BILAT Right complete breast ultrasound includes all four quadrants, the retroareolar region and axilla. Finding demonstrates no cystic or solid lesion seen. Left complete breast ultrasound includes all four quadrants, the retroareolar region and axilla. Finding demonstrates no cystic or solid lesion seen. No suspicious sonographic finding. These results were verbally communicated with the patient and result sheet given to the patient on 03/10/19. ASSESSMENT: Negative, BI-RAD 1 RECOMMENDATION: Routine screening mammogram of both breasts in 1 year.
== END | disposition home or self-care (01) ==
LOC: RADUSWWP 08:44
PROVIDERS: ATTEND Obstetrics & Gynecology Obstetrics
DX: R92.2 Inconclusive mammogram (principal)

== ENCOUNTER 2019-07-14 18:27 | Emergency (ER) | payer BC ==
[2019-07-14] MEDS ORDERED: LORazepam 2 MG/ML INJ IV STA (18:57)
--- NOTE | 2019-07-14 18:58 | ED ---
General Adult HPI - General Chief complaint: Shortness of Breath Stated complaint: Sob Time Seen by Provider: 07/14/19 18:35 Source: patient Mode of arrival: ambulatory Limitations: no limitations - History of Present Illness Initial comments: Dictation was produced using [employer] dictation software. please excuse any grammatical, word or spelling errors. Chief Complaint: 59-year-old female sent in by PCP for concerns of PE. History of Present Illness: 59-year-old female presents today with instructions from primary care physician to come to the emergency department to be evaluated for PE. See the call from Dr. Mejia. Patient has been having shortness of breath for the last 2 days. She recently recovered from a upper respiratory infection. Patient was seen at the PCPs office Sunday hypoxic in the high 80s. She hasPE risk factors. Denies any lower extremitie symptoms. No history of blood clot. There is blood clots are in the family. She feels anxious and has history of anxiety did not take her anxiety medications today. She denies any chest pain. She was short of breath which is worse when she ambulates. The ROS documented in this emergency department record has been reviewed and confirmed by me. Those systems with pertinent positive or negative responses have been documented in the HPI. All other systems are other negative and/or noncontributory. PHYSICAL EXAM: General Impression: Alert and oriented x3, not in acute distress HEENT: Normocephalic atraumatic, extra-ocular movements intact, pupils equal and reactive to light bilaterally, mucous membranes moist. Cardiovascular: Tachycardic Chest: Lungs clear to auscultation bilaterally, no rhonchi, no wheeze, no rales Abdomen: Bowel sounds present, abdomen soft, non-tender, non-distended, no organomegaly Musculoskeletal: Pulses present and equal in all extremities, no peripheral edema Motor: no focal deficits noted Neurological: CN II-XII grossly intact, no focal motor or sensory deficits noted Skin: Intact with no visualized rashes Psych: Normal affect and mood ED course: 59-year-old female presents with instruction from primary care physician come to the emergency department to be evaluated for pulmonary embolus. Signs upon arrival shows heart rate 102, oxygen saturation 90%, Laboratory evaluation obtained. CBC, metabolic panel is obtained. Patient has a non-gap acidosis. She does have care at [address]. CT angioma of the chest shows multiple pulmonary emboli predominately in the lower lobes. Patient started on high-dose heparin. Discussed patient case Dr. Baptiste who reports that patient is not a candidate for hospital. She may require EKOS therapy. Patient is agreeable to transfer to [facility]. Discussed patient case with Dr. Ackerman who is willing to accept patient transfer. EKG interpretation: Ventricular rate 100, normal sinus rhythm,. 166, QS 86, QTC 466. No NH prolongation, no QTC prolongation, no ST or T-wave changes noted. . Overall, this EKG is unremarkable - Related Data Home Medications Medication Instructions Recorded Confirmed Sertraline [Zoloft] 100 mg PO BID 09/05/16 10/21/18 Topiramate [Topamax] 100 mg PO BID 09/05/16 10/21/18 SUMAtriptan SUCCINATE [Imitrex] 100 mg PO BID PRN 07/31/17 10/21/18 Omeprazole 40 mg PO DAILY PRN 10/16/18 10/21/18 Ranitidine HCl [Zantac] 150 mg PO DAILY PRN 10/16/18 10/21/18 Synthroid(Unknown Dose) 1 tab PO QAM 10/16/18 10/21/18 Previous Rx's Medication Instructions Recorded traMADol HCl [Ultram] 50 mg PO Q4HR PRN #18 tab 10/21/18 Allergies Allergy/AdvReac Type Severity Reaction Status Date / Time codeine Allergy Chest Pain Verified 07/14/19 18:55 Penicillins Allergy Rash/Hives Verified 07/14/19 18:55 Review of Systems ROS Statement: Those systems with pertinent positive or pertinent negative responses have been documented in the HPI. ROS Other: All systems not noted in ROS Statement are negative. Past Medical History Past Medical History: GERD/Reflux, Hyperlipidemia, Osteoarthritis (OA), Sleep Apnea/CPAP/BIPAP, Thyroid Disorder Additional Past Medical History / Comment(s): Hx of sleep apnea (resolved with wt loss), migraines, hypothyroidism. History of Any Multi-Drug Resistant Organisms: None Reported Past Surgical History: Bariatric Surgery, Hysterectomy, Joint Replacement, Orthopedic Surgery, Tonsillectomy Additional Past Surgical History / Comment(s): Right knee replacement, Lap Band (band was replaced 08/06/17), panniculectomy, bilateral carpal tunnel, knee arthroscopy, colonoscopy.Band Removed 10/21/2018 Past Anesthesia/Blood Transfusion Reactions: No Reported Reaction Past Psychological History: Anxiety Smoking Status: Never smoker Past Alcohol Use History: None Reported Past Drug Use History: None Reported - Past Family History Sister(s) Family Medical History: Deep Vein Thrombosis (DVT) Brother(s) Family Medical History: Deep Vein Thrombosis (DVT) General Exam Limitations: no limitations Course Vital Signs 07/14/19 18:28 Temperature 97.6 F Pulse Rate 102 H Respiratory 22 Rate Blood Pressure 117/77 O2 Sat by Pulse 93 L Oximetry Medical Decision Making - Lab Data Result diagrams: 07/14/19 18:51 07/14/19 18:51 Lab Results 07/14/19 07/14/19 07/14/19 Range/Units 18:51 18:51 18:51 WBC 9.8 (3.8-10.6) k/uL RBC 4.67 (3.80-5.40) m/uL Hgb 15.0 (11.4-16.0) gm/dL Hct 44.3 (34.0-46.0) % MCV 94.7 (80.0-100.0) fL MCH 32.1 (25.0-35.0) pg MCHC 33.9 (31.0-37.0) g/dL RDW 13.7 (11.5-15.5) % Plt Count 193 (150-450) k/uL Neutrophils % 79 % Lymphocytes % 11 % Monocytes % 6 % Eosinophils % 2 % Basophils % 0 % Neutrophils # 7.7 (1.3-7.7) k/uL Lymphocytes # 1.1 (1.0-4.8) k/uL Monocytes # 0.6 (0-1.0) k/uL Eosinophils # 0.1 (0-0.7) k/uL Basophils # 0.0 (0-0.2) k/uL APTT (22.0-30.0) sec Sodium 143 (137-145) mmol/L Potassium 4.1 (3.5-5.1) mmol/L Chloride 115 H (98-107) mmol/L Carbon Dioxide 17 L (22-30) mmol/L Anion Gap 11 mmol/L BUN 15 (7-17) mg/dL Creatinine 0.96 (0.52-1.04) mg/dL Est GFR (CKD-EPI)AfAm 76 (>60 ml/min/1.73 sqM) Est GFR (CKD-EPI)NonAf 66 (>60 ml/min/1.73 sqM) Glucose 109 H (74-99) mg/dL Plasma Lactic Acid Callum 1.2 (0.7-2.0) mmol/L Calcium 9.4 (8.4-10.2) mg/dL Magnesium 1.8 (1.6-2.3) mg/dL Total Bilirubin 0.8 (0.2-1.3) mg/dL AST 20 (14-36) U/L ALT 13 (9-52) U/L Alkaline Phosphatase 122 (38-126) U/L NT-Pro-B Natriuret Pep pg/mL Total Protein 7.7 (6.3-8.2) g/dL Albumin 4.2 (3.5-5.0) g/dL 07/14/19 07/14/19 Range/Units 18:51 18:51 WBC (3.8-10.6) k/uL RBC (3.80-5.40) m/uL Hgb (11.4-16.0) gm/dL Hct (34.0-46.0) % MCV (80.0-100.0) fL MCH (25.0-35.0) pg MCHC (31.0-37.0) g/dL RDW (11.5-15.5) % Plt Count (150-450) k/uL Neutrophils % % Lymphocytes % % Monocytes % % Eosinophils % % Basophils % % Neutrophils # (1.3-7.7) k/uL Lymphocytes # (1.0-4.8) k/uL Monocytes # (0-1.0) k/uL Eosinophils # (0-0.7) k/uL Basophils # (0-0.2) k/uL APTT 25.3 (22.0-30.0) sec Sodium (137-145) mmol/L Potassium (3.5-5.1) mmol/L Chloride (98-107) mmol/L Carbon Dioxide (22-30) mmol/L Anion Gap mmol/L BUN (7-17) mg/dL Creatinine (0.52-1.04) mg/dL Est GFR (CKD-EPI)AfAm (>60 ml/min/1.73 sqM) Est GFR (CKD-EPI)NonAf (>60 ml/min/1.73 sqM) Glucose (74-99) mg/dL Plasma Lactic Acid Callum (0.7-2.0) mmol/L Calcium (8.4-10.2) mg/dL Magnesium (1.6-2.3) mg/dL Total Bilirubin (0.2-1.3) mg/dL AST (14-36) U/L ALT (9-52) U/L Alkaline Phosphatase (38-126) U/L NT-Pro-B Natriuret Pep 2290 pg/mL Total Protein (6.3-8.2) g/dL Albumin (3.5-5.0) g/dL Disposition Clinical Impression: Pulmonary embolism Disposition: OTHER INSTITUTION NOT DEFINED Condition: Critical Referrals: Porfirio Mejia MD [Primary Care Provider] - 1-2 days Time of Disposition: 20:10 - Out of Hospital Transfer - Req. Specs Out of Hospital Transfer - Requested Specifics: Other Emergency Center ([facility])
[2019-07-14 19:13] LABS: Basophils % (A) 0 %; Eosinophils # (A) 0.1 k/uL (0-0.7); Eosinophils % (A) 2 %; HCT 44.3 % (34.0-46.0); Lymphocytes # (A) 1.1 k/uL (1.0-4.8); Lymphocytes % (A) 11 %; MCH 32.1 pg (25.0-35.0); MCHC 33.9 g/dL (31.0-37.0); MCV 94.7 fL (80.0-100.0); Mean Platelet Volume 6.8; Monocytes # (A) 0.6 k/uL (0-1.0); Monocytes % (A) 6 %; Neutrophils # (A) 7.7 k/uL (1.3-7.7); Neutrophils % (A) 79 %; Platelet Count 193 k/uL (150-450); RBC 4.67 m/uL (3.80-5.40); RDW 13.7 % (11.5-15.5); WBC 9.8 k/uL (3.8-10.6)
[2019-07-14 19:21] LABS: Albumin 4.2 g/dL (3.5-5.0); Calcium 9.4 mg/dL (8.4-10.2); Magnesium 1.8 mg/dL (1.6-2.3); Potassium 4.1 mmol/L (3.5-5.1); Total Bilirubin 0.8 mg/dL (0.2-1.3); Total Protein 7.7 g/dL (6.3-8.2)
[2019-07-14] MEDS ORDERED: HEPARIN SODIUM,PORCINE 10,000 UNIT/ML 1 ML VIAL IV ONE (19:42)
[2019-07-14] MEDS ORDERED: HEPARIN SODIUM,PORCINE 5,000 UNIT/ML 1 ML VIAL IV PRN (19:42)
[2019-07-14] MEDS ORDERED: HEPARIN SOD,PORK IN 0.45% NACL 25,000 UNIT in 0.45% NACL 1 250ML.BAG IV SCH (19:45)
--- NOTE | 2019-07-14 19:50 | CT ---
EXAMINATION TYPE: CT angio chest DATE OF EXAM: 07/14/2019 7:26 PM COMPARISON: HISTORY: Hypoxia, difficulty breathing and chest heaviness. CT DLP: 552.4 mGycm Automated exposure control for dose reduction was used. CONTRAST: CTA scan of the thorax is performed with IV Contrast, patient injected with 100 mL of Isovue 370, pul monary embolism protocol. . There are 3-D post processed images. FINDINGS: Lungs are clear of consolidation. There is no evidence of a pulmonary mass. There is no mediastinal a denopathy.. There is no pleural effusion. Thoracic aorta is intact. There is no aneurysm or dissection. There are numerous filling defects in the left and right pulmonary arteries and extending into the lo wer lobe pulmonary arteries bilaterally. There is bullous extent involvement of the upper lobe pulmon festus arteries. Upper abdominal soft tissues are intact. There is minor spurring in the thoracic spine. Bony thorax i s intact. IMPRESSION: THERE ARE NUMEROUS BILATERAL PULMONARY EMBOLI PREDOMINANTLY INVOLVING THE LOWER LOBES. This exam was discussed with Dr. Hanson at 7:45 PM.
[2019-07-14 20:25] VITALS: PULSE 98; RESP 18
[2019-07-14 21:16] VITALS: BP 138/103; TEMP 98
== END 2019-07-14 21:10 | disposition other institution (70) ==
LOC: EC 18:27
DX: I26.99 Other pulmonary embolism without acute cor pulmonale (principal); E87.2 Acidosis; F41.9 Anxiety disorder, unspecified; K21.9 Gastro-esophageal reflux disease without esophagitis; E78.5 Hyperlipidemia, unspecified; M19.90 Unspecified osteoarthritis, unspecified site; E03.9 Hypothyroidism, unspecified; G43.909 Migraine, unspecified, not intractable, without status migrainosus; Z79.890 Hormone replacement therapy; Z79.899 Other long term (current) drug therapy; Z88.5 Allergy status to narcotic agent; Z88.0 Allergy status to penicillin; Z83.2 Family history of diseases of the blood and blood-forming organs and certain disorders involving the immune mechanism
CPT/HCPCS: 36415; 93005; 86900; 86901; 83880; 80053; 83605; 83735; 84484; 85025; 85730; 86850; 71275; 99285; 96365; 96375 ×2; J2060; J1644 ×2; Q9967

== ENCOUNTER → 2019-08-07 | Outpatient (CLI) | payer BC ==
--- NOTE | 2019-08-07 10:22 | FL ---
ESOPHOGRAM. HISTORY: Dysphagia Esophagram was performed per the air contrast technique. The patient swallowed barium and effervesce nt crystals without difficulty or delay. Esophageal peristalsis and motility appear to be within normal limits. There is no evidence for filling defect, mass or diverticulum. No hiatal hernia seen. Subsequently single contrast cervical esophagram was performed which fails demonstrate evidence for a spiration penetration or mass. Mild posterior mass effect from spur formation at C3-4 and C4-5. IMPRESSION: Mild posterior mass effect from spur formation at C3-4 and C4-5. Otherwise unremarkable s tudy.
== END | disposition home or self-care (01) ==
LOC: RADUSWWP 08:52
PROVIDERS: ATTEND Otolaryngology
DX: F45.8 Other somatoform disorders (principal)
CPT/HCPCS: 74220

== ENCOUNTER → 2019-08-13 | Outpatient (CLI) | payer BC ==
[2019-08-13 18:26] LABS: Codfish IgE <0.10 kU/L; Peanut IgE <0.10 kU/L; Soybean IgE <0.10 kU/L
[2019-08-13 18:27] LABS: Clam IgE <0.10 kU/L; Shrimp IgE <0.10 kU/L; Walnut IgE (Food) <0.10 kU/L
[2019-08-13 18:28] LABS: Egg White IgE <0.10 kU/L; Scallop IgE <0.10 kU/L
== END | disposition home or self-care (01) ==
LOC: LABPAT 10:04
PROVIDERS: ATTEND Otolaryngology
DX: J30.89 Other allergic rhinitis (principal)
CPT/HCPCS: 82785; 86003

== ENCOUNTER → 2019-08-20 | Outpatient (CLI) | payer BC ==
--- NOTE | 2019-08-20 14:02 | US ---
EXAMINATION TYPE: US venous doppler duplex LE BI DATE OF EXAM: 08/20/2019 1:32 PM COMPARISON: NONE CLINICAL HISTORY: D68.9 Coagulation defect, unspecified. History of pulmonary embolism in June. Patient is on blood thinners SIDE PERFORMED: Bilateral TECHNIQUE: The lower extremity deep venous system is examined utilizing real time linear array sonog julio cesar with graded compression, doppler sonography and color-flow sonography. VESSELS IMAGED: External Iliac Vein (EIV) Common Femoral Vein Deep Femoral Vein Greater Saphenous Vein * Femoral Vein Popliteal Vein Small Saphenous Vein * Proximal Calf Veins (* superficial vessels) Grayscale, color doppler, spectral doppler imaging performed of the deep veins of the lower extremiti es. There is normal flow, compressibility, vascular waveforms. Right Leg: Negative for DVT Left Leg: Negative for DVT IMPRESSION: No sonographic evidence of deep venous thrombosis within either lower extremity.
== END ==
LOC: RADUSWWP 12:56
PROVIDERS: ATTEND Internal Medicine Hematology & Oncology
DX: D68.9 Coagulation defect, unspecified (principal)
CPT/HCPCS: 93970

== ENCOUNTER 2019-10-01 08:44 | Day surgery (SDC) | payer BC ==
[2019-09-29 15:27] VITALS: BMI 34.9
[~2019-10-01 08:44] MED LIST changes: -CHLORHEXIDINE GLUCONATE 15 ML CUP MUCOUS MEM ONE; -DEXAMETHASONE SOD PHOSPHATE 10 MG/ML 1 ML VIAL IV ONE; -ENOXAPARIN 40 MG/0.4 ML SYRINGE SQ STA; +LIDOCAINE 1% 20 ML VIAL (10MG/ML) FOR IV START INTRADERMA PRN; -MIDAZOLAM 2 MG/2 ML VIAL IV PRN; -ONDANSETRON 4 MG/2 ML VIAL IVP ONE; -PANTOPRAZOLE 40 MG/10 ML VIAL IV STA; -SCOPOLAMINE 1.5MG/72HR PATCH TRANSDERM ONE; -ceFAZolin IN SWFI 2 GM/20 ML SYRINGE IVP ONE
[2019-10-01 09:00] VITALS: RESP 16; TEMP 97.4
[2019-10-01] MEDS ORDERED: PROPOFOL 10 MG/ML 20 ML VIAL IV ONE (09:16)
[2019-10-01] MEDS ORDERED: LIDOCAINE 1% INJ 10MG/ML (20 ML MDV) ONE (09:16)
--- NOTE | 2019-10-01 09:33 | P.PCN ---
Date of Procedure: 10/01/19 Procedure(s) Performed: BRIEF HISTORY: Patient is a 59-year-old, pleasant, female, scheduled for an upper endoscopy as a part of evaluation of intermittent dysphagia to solids for the last 1 year duration. Lately her symptoms have been having 1 daily basis. Often with meat and bread. She is hence scheduled for an upper endoscopy with a possible dilation. PROCEDURE PERFORMED: Esophagogastroduodenoscopy with biopsy and dilation. PREOPERATIVE DIAGNOSIS: Dysphagia. IV sedation per anesthesia. PROCEDURE: After informed consent was obtained, the patient was brought into the endoscopy unit. IV sedation was administered by Anesthesia under continuous monitoring. Initially the Olympus GIF-140 video endoscope was inserted into the mouth. Esophagus intubated without any difficulty. It was gradually advanced into the stomach and duodenum and carefully examined. The bulb and the second part of the duodenum appeared normal. The scope at this time was withdrawn to the stomach, adequately insufflated with air, and upon careful examination, mucosa of the antrum, had mild gastritis and biopsies were done from this area. The body, cardia and the fundus appeared normal. It was moderate amount of food noted in the stomach consistent with gastroparesis with no evidence of gastric outlet obstruction. The scope was then withdrawn into the esophagus. The GE junction was located at 39 cm from the incisors. There was a small hiatal hernia noted. Just proximal to the hiatal hernia there was a widely patent distal esophageal Schatzki's ring which was dilated using 18-20 mm TTS balloon in a sequential fashion for 60 seconds. The rest of the esophagus appeared normal. There were no erosions or ulcerations seen, multiple biopsies were done from the distal esophagus and the patient tolerated the procedure well. IMPRESSION: 1. Distal esophageal Schatzki's ring status post balloon dilation using 18-20 mm balloon in a sequential fashion as described above. 2. Small hiatal hernia 3. Retained food in the stomach suggestive of gastroparesis. RECOMMENDATIONS: The findings of this examination were discussed with the patient as well as a family. She was advised to remain on a clear liquid diet for lunch. Follow with the biopsy results if she has persistent dysphagia she was advised to follow up in office in the future.
[2019-10-01 09:48] VITALS: BP 124/85; PULSE 52
== END 2019-10-01 10:19 | disposition home or self-care (01) ==
LOC: ORWHC2ENDO 08:44
PROVIDERS: ATTEND Internal Medicine Gastroenterology
DX: K22.2 Esophageal obstruction (principal); K29.50 Unspecified chronic gastritis without bleeding; K21.9 Gastro-esophageal reflux disease without esophagitis; K44.9 Diaphragmatic hernia without obstruction or gangrene; E78.5 Hyperlipidemia, unspecified; G43.909 Migraine, unspecified, not intractable, without status migrainosus; E07.9 Disorder of thyroid, unspecified; F39 Unspecified mood [affective] disorder; G47.33 Obstructive sleep apnea (adult) (pediatric); Z86.711 Personal history of pulmonary embolism; Z79.01 Long term (current) use of anticoagulants; Z79.899 Other long term (current) drug therapy; Z79.890 Hormone replacement therapy; Z88.5 Allergy status to narcotic agent; Z88.0 Allergy status to penicillin; Z87.891 Personal history of nicotine dependence
CPT/HCPCS: 88305; 43239; 43249; J2001; J2704; C1726

== ENCOUNTER → 2020-03-09 | Outpatient (CLI) | payer BC ==
--- NOTE | 2020-03-09 16:18 | CT ---
EXAMINATION TYPE: CT angio chest DATE OF EXAM: 03/09/2020 COMPARISON: 07/14/2019 HISTORY: Follow up scan. History of PE. CT DLP: 555 mGycm CONTRAST: CT chest with contrast and 3D reconstruction with MIP imaging is performed with IV Contrast, patient injected with 100 mL of Isovue 370. Contrast-enhanced CT of the chest was performed through the course of the pulmonary arteries with augie g and mediastinal window settings submitted. 3D reconstruction with MIP imaging was also performed. PULMONARY ARTERIES: The pulmonary arteries and their major tributaries are patent. I do not see cristiano dence for sizable filling defect to suggest pulmonary embolic process. LUNGS: The lungs are clear and free of infiltrate. No evidence for atelectasis. No pulmonary nodule or mass is detected. No pleural effusion. MEDIASTINUM: Thoracic aorta is of normal caliber,however, evaluation is limited given timing of the contrast bolus. If there is concern for thoracic aortic pathology consider DEAN. Correlate clinicall y . The heart is not enlarged. No evidence for mediastinal mass. No mediastinal lymph nodes greater than 1cm. HILAR STRUCTURES: No evidence for mass. No hilar lymph nodes greater than 1 cm. UPPER ABDOMEN: No significant abnormality is seen. IMPRESSION: 1. No evidence for Pulmonary embolism at this time.
== END | disposition home or self-care (01) ==
LOC: RADCTMAIN 15:24
PROVIDERS: ATTEND Internal Medicine Critical Care Medicine
DX: Z09 Encounter for follow-up examination after completed treatment for conditions other than malignant neoplasm (principal); Z86.711 Personal history of pulmonary embolism; Z88.0 Allergy status to penicillin; Z88.6 Allergy status to analgesic agent
CPT/HCPCS: 71275; Q9967

== ENCOUNTER → 2020-06-10 | Outpatient (CLI) | payer BC | END | disposition home or self-care (01) | LOC: LABWHC1 09:29 | PROVIDERS: ATTEND Otolaryngology | DX: E03.9 Hypothyroidism, unspecified (principal) | CPT/HCPCS: 36415; 84439 ==

== ENCOUNTER → 2021-02-17 | Outpatient (CLI) | payer OTHER ==
--- NOTE | 2021-02-18 11:33 | MM ---
Reason for exam: screening (asymptomatic). Last mammogram was performed 2 years ago. History: Patient is postmenopausal. Took hormonal contraceptives for 6 months. Took estrogen for 21 years beginning at age 36. Physical Findings: A clinical breast exam by your physician is recommended on an annual basis and results should be correlated with mammographic findings. MG 3D Screening Mammo W/Cad Bilateral CC and MLO view(s) were taken. Prior study comparison: February 07, 2019, bilateral MG 3d screening mammo w/cad. December 28, 2017, bilateral MG 3d screening mammo w/cad. The breast tissue is heterogeneously dense. This may lower the sensitivity of mammography. There are benign appearing round calcifications bilaterally. There is no discrete abnormality. ASSESSMENT: Benign, BI-RAD 2 RECOMMENDATION: Routine screening mammogram of both breasts in 1 year.
== END | disposition home or self-care (01) ==
LOC: RADMAMWWP 08:49
PROVIDERS: ATTEND Family Medicine
DX: Z12.31 Encounter for screening mammogram for malignant neoplasm of breast (principal); Z78.0 Asymptomatic menopausal state
CPT/HCPCS: 77063; 77067

== ENCOUNTER 2021-08-26 16:27 | Emergency (ER) | payer OTHER ==
[2021-08-26 18:40] VITALS: RESP 16
--- NOTE | 2021-08-26 18:44 | ED ---
General Adult HPI - General Chief complaint: Upper Respiratory Infection Stated complaint: Covid+/antibodies Time Seen by Provider: 08/26/21 18:35 Source: patient, RN notes reviewed, old records reviewed Mode of arrival: ambulatory Limitations: no limitations - History of Present Illness Initial comments: 61-year-old female, alert and oriented 4, presents to the emergency room with 4 days of sore throat and body aches. She took an at home Covid test and was positive. She is here for the monoclonal antibodies infusion. She does have a history of hypertension and pulmonary embolism. She is currently taking eliquis She denies any chest pain or difficulty in breathing. Oxygen saturation is 96% on room air and she is afebrile in the emergency room. -: days(s) (4) Location: mouth (Sore throat), chest, back Severity scale (1-10): 0 Consistency: intermittent Improves with: none Associated Symptoms: cough, other (Sore throat and body aches) - Related Data Home Medications Medication Instructions Recorded Confirmed Sertraline [Zoloft] 100 mg PO BID 09/05/16 08/26/21 Levothyroxine Sodium [Synthroid] 88 mcg PO DAILY 07/14/19 08/26/21 Apixaban [Eliquis] 5 mg PO BID 09/29/19 08/26/21 Atorvastatin [Lipitor] 10 mg PO DAILY 08/26/21 08/26/21 Omeprazole 20 mg PO DAILY 08/26/21 08/26/21 Propranolol [Inderal] 20 mg PO DIRECTED 08/26/21 08/26/21 traMADol HCL 50 mg PO ONCE PRN 08/26/21 08/26/21 Allergies Allergy/AdvReac Type Severity Reaction Status Date / Time codeine Allergy Chest Pain Verified 08/26/21 18:40 Penicillins Allergy Rash/Hives Verified 08/26/21 18:40 Review of Systems ROS Statement: Those systems with pertinent positive or pertinent negative responses have been documented in the HPI. ROS Other: All systems not noted in ROS Statement are negative. Past Medical History Past Medical History: GERD/Reflux, Hyperlipidemia, Osteoarthritis (OA), Pulmonary Embolus (PE), Sleep Apnea/CPAP/BIPAP, Thyroid Disorder Additional Past Medical History / Comment(s): Hx of sleep apnea (resolved with wt loss), migraines, hypothyroidism. PE filomena 06/2019. Having trouble swallowing, food getting stuck. History of Any Multi-Drug Resistant Organisms: None Reported Past Surgical History: Bariatric Surgery, Hysterectomy, Joint Replacement, Orthopedic Surgery, Tonsillectomy Additional Past Surgical History / Comment(s): Right knee replacement, Lap Band (band was replaced 08/06/17), Panniculectomy, bilateral carpal tunnel, knee arthroscopy, colonoscopy. Band Removed 10/21/2018. Past Anesthesia/Blood Transfusion Reactions: No Reported Reaction Past Psychological History: Anxiety Smoking Status: Never smoker Past Alcohol Use History: None Reported Past Drug Use History: None Reported - Past Family History Sister(s) Family Medical History: Deep Vein Thrombosis (DVT) Brother(s) Family Medical History: Deep Vein Thrombosis (DVT) Father Family Medical History: Deep Vein Thrombosis (DVT) Mother Family Medical History: Deep Vein Thrombosis (DVT) General Exam Limitations: no limitations General appearance: alert, in no apparent distress Head exam: Present: atraumatic, normocephalic, normal inspection Eye exam: Present: normal appearance, EOMI. Absent: scleral icterus, conjunctival injection, periorbital swelling, periorbital tenderness ENT exam: Present: normal exam, normal oropharynx, mucous membranes moist Neck exam: Present: normal inspection, full ROM. Absent: tenderness, meningismus, lymphadenopathy, thyromegaly Respiratory exam: Present: normal lung sounds bilaterally. Absent: respiratory distress, wheezes, rales, rhonchi, stridor, accessory muscle use Cardiovascular Exam: Present: tachycardia. Absent: JVD Extremities exam: Present: normal capillary refill Neurological exam: Present: alert, oriented X3 Psychiatric exam: Present: normal affect, normal mood Skin exam: Present: warm, dry, intact, normal color. Absent: rash, cyanosis, diaphoretic Course Vital Signs 08/26/21 08/26/21 08/26/21 17:21 18:39 20:46 Temperature 98.9 F 99.0 F 98.7 F Pulse Rate 103 H Pulse Rate [ 91 87 Pulse Oximetery ] Respiratory 20 16 16 Rate Blood Pressure 138/88 Blood Pressure 144/50 121/84 [Right Arm] O2 Sat by Pulse 96 95 96 Oximetry 08/26/21 21:32 Temperature 98.7 F Pulse Rate Pulse Rate [ 84 Pulse Oximetery ] Respiratory 16 Rate Blood Pressure Blood Pressure 118/72 [Right Arm] O2 Sat by Pulse 97 Oximetry Medical Decision Making - Medical Decision Making This is a well-appearing 61-year-old female that presents to the emergency room for monoclonal antibodies infusion. She has had 4 days of sore throat and cough with body aches. Her coronavirus swab is positive in the emergency room. She was requesting monoclonal antibodies and tolerated the infusion without difficulty. Oxygen saturation is 96% on room air, she is afebrile. She was directed to follow up with her primary care doctor as needed, self quarantine for 10 days from symptom onset. Vitamin C vitamin D and zinc as suggested for immune help. - Lab Data Lab Results 08/26/21 Range/Units 17:27 Coronavirus (PCR) Detected A (Not Detectd) Disposition Clinical Impression: COVID-19 Disposition: HOME SELF-CARE Condition: Good Instructions (If sedation given, give patient instructions): Coronavirus Disease 2019 (COVID-19) Additional Instructions: Self quarantine for 10 days from symptom onset and 24 hours without fever. Return to the emergency room with any new or worsening symptoms. You can take vitamin C, vitamin D and Zinc to improve immune health. Is patient prescribed a controlled substance at d/c from ED?: No Referrals: Porfirio Mejia MD [Primary Care Provider] - 1-2 days Time of Disposition: 21:09
[2021-08-26] MEDS ORDERED: CASIRIVIMAB (REGN10933) (EUA) 600 MG, IMDEVIMAB (REGN10987) (EUA) 600 MG in SODIUM CHLO... IVPB ONE (19:30)
[2021-08-26] MEDS ORDERED: SODIUM CHLORIDE 0.9% 50 ML IVPB ONE (20:00)
[2021-08-26 20:46] VITALS: TEMP 98.7
[2021-08-26 21:32] VITALS: BP 118/72; PULSE 84
== END 2021-08-26 21:34 | disposition home or self-care (01) ==
LOC: EC 16:27
DX: U07.1 COVID-19 (principal); K21.9 Gastro-esophageal reflux disease without esophagitis; E78.5 Hyperlipidemia, unspecified; M19.90 Unspecified osteoarthritis, unspecified site; E03.9 Hypothyroidism, unspecified; Z88.0 Allergy status to penicillin; Z88.5 Allergy status to narcotic agent; Z79.899 Other long term (current) drug therapy; Z79.890 Hormone replacement therapy; Z79.01 Long term (current) use of anticoagulants
CPT/HCPCS: 87635; 99283; Q0244

== ENCOUNTER 2021-10-04 18:17 | Emergency (ER) | payer OTHER ==
[2021-10-04 19:17] VITALS: TEMP 97.6
[2021-10-04] MEDS ORDERED: HYDROmorphone 0.5 MG/0.5 ML SYRINGE IM STA (19:52)
--- NOTE | 2021-10-04 19:58 | ED ---
General Adult HPI - General Chief complaint: Fall Stated complaint: fall, head injury, on thinners Time Seen by Provider: 10/04/21 19:24 Source: patient, RN notes reviewed Mode of arrival: ambulatory Limitations: no limitations - History of Present Illness Initial comments: 61-year-old female presents to the emergency department for fall. Patient state s that she was grabbing something out of her garage and tripped over while walking backwards. States that she did hit her head. No loss of consciousness. She does take Eliquis for a past history of PE. Patient states that she did have a bump on her head but that that is going away. She also has right arm pain. States it is all the way from her hand up to her shoulder. States it hurts to move her shoulder wrist and elbow.Patient has no other complaints at this time including shortness of breath, chest pain, abdominal pain, nausea or vomiting, headache, or visual changes. - Related Data Home Medications Medication Instructions Recorded Confirmed Sertraline [Zoloft] 100 mg PO BID 09/05/16 10/04/21 Levothyroxine Sodium [Synthroid] 88 mcg PO DAILY 07/14/19 10/04/21 Apixaban [Eliquis] 5 mg PO BID 09/29/19 10/04/21 Atorvastatin [Lipitor] 10 mg PO DAILY 08/26/21 10/04/21 Omeprazole 40 mg PO DAILY 10/04/21 10/04/21 Allergies Allergy/AdvReac Type Severity Reaction Status Date / Time codeine Allergy Chest Pain Verified 10/04/21 20:28 Penicillins Allergy Rash/Hives Verified 10/04/21 20:28 Review of Systems ROS Statement: Those systems with pertinent positive or pertinent negative responses have been documented in the HPI. ROS Other: All systems not noted in ROS Statement are negative. Past Medical History Past Medical History: GERD/Reflux, Hyperlipidemia, Osteoarthritis (OA), Pulmonary Embolus (PE), Sleep Apnea/CPAP/BIPAP, Thyroid Disorder Additional Past Medical History / Comment(s): Hx of sleep apnea (resolved with wt loss), migraines, hypothyroidism. PE filomena 06/2019. Having trouble swallowing, food getting stuck. History of Any Multi-Drug Resistant Organisms: None Reported Past Surgical History: Bariatric Surgery, Hysterectomy, Joint Replacement, Orthopedic Surgery, Tonsillectomy Additional Past Surgical History / Comment(s): Right knee replacement, Lap Band (band was replaced 08/06/17), Panniculectomy, bilateral carpal tunnel, knee arthroscopy, colonoscopy. Band Removed 10/21/2018. Past Anesthesia/Blood Transfusion Reactions: No Reported Reaction Past Psychological History: Anxiety Smoking Status: Never smoker Past Alcohol Use History: None Reported Past Drug Use History: None Reported - Past Family History Sister(s) Family Medical History: Deep Vein Thrombosis (DVT) Brother(s) Family Medical History: Deep Vein Thrombosis (DVT) Father Family Medical History: Deep Vein Thrombosis (DVT) Mother Family Medical History: Deep Vein Thrombosis (DVT) General Exam Limitations: no limitations General appearance: alert, in no apparent distress Head exam: Present: atraumatic Eye exam: Present: normal appearance, PERRL, EOMI. Absent: scleral icterus, conjunctival injection ENT exam: Present: normal exam, mucous membranes moist Neck exam: Present: normal inspection, full ROM. Absent: tenderness Respiratory exam: Present: normal lung sounds bilaterally. Absent: respiratory distress, wheezes Cardiovascular Exam: Present: regular rate, normal rhythm, normal heart sounds GI/Abdominal exam: Present: soft, normal bowel sounds. Absent: distended, tenderness Extremities exam: Present: tenderness (Generalized tenderness of the entire right arm pt unable to localize the pain.), normal capillary refill (Capillary refill less than 2 seconds, radial pulse 2+ right upper extremity.). Absent: full ROM (Patient has pain with full flexion of the right fingers. Full range of motion of the shoulder elbow and wrist.) Course Vital Signs 10/04/21 19:14 Temperature 97.6 F Pulse Rate 75 Respiratory 18 Rate Blood Pressure 133/79 O2 Sat by Pulse 95 Oximetry Medical Decision Making - Medical Decision Making CT brain and C-spine are negative. X-ray of the hand forearm and humerus do not reveal any fractures. At this time patient is stable for outpatient follow-up. She will follow up with primary care. She will return here for any worsening symptoms. Disposition Clinical Impression: Fall, Head injury, Right arm pain Disposition: HOME SELF-CARE Condition: Good Instructions (If sedation given, give patient instructions): Head Injury (ED) Additional Instructions: Please take Tylenol for pain. Follow-up with your doctor. Return to the emergency room for any worsening symptoms. Is patient prescribed a controlled substance at d/c from ED?: No Referrals: Porfirio Mejia MD [Primary Care Provider] - 1-2 days Time of Disposition: 20:35
--- NOTE | 2021-10-04 20:16 | CT ---
EXAMINATION TYPE: CT brain cspine wo con DATE OF EXAM: 10/04/2021 COMPARISON: None HISTORY: fall and hit head CT DLP: 1399.1 mGycm Automated exposure control for dose reduction was used. Images obtained of the brain and cervical spine without contrast. Ventricles and sulci appear normal. There is no mass effect or midline shift. There is no sign of int racranial hemorrhage. Calvarium is intact. The skull base is intact. There is normal aeration of the mastoid sinuses. The cervical vertebra have normal alignment. There is no compression fracture. Posterior elements are intact. Facet joints appear intact. Prevertebral soft tissues are intact. There is no evidence of a fracture. IMPRESSION: Negative unenhanced head CT scan. Negative CT scan of the cervical spine.
--- NOTE | 2021-10-04 20:20 | XR ---
EXAMINATION TYPE: XR humerus RT DATE OF EXAM: 10/04/2021 COMPARISON: NONE HISTORY: Fall. Pain. TECHNIQUE: 2 views FINDINGS: Glenohumeral joint is intact. Elbow joint is intact. I see no fracture nor dislocation. IMPRESSION: Negative right humerus exam. No fracture.
--- NOTE | 2021-10-04 20:21 | XR ---
EXAMINATION TYPE: XR forearm RT DATE OF EXAM: 10/04/2021 COMPARISON: NONE HISTORY: Fall. Pain. TECHNIQUE: 2 views FINDINGS: I see no fracture nor dislocation. Radius and ulna appear intact. Elbow joint and wrist rosalba nt appear intact. IMPRESSION: Negative right forearm exam.
--- NOTE | 2021-10-04 20:22 | XR ---
EXAMINATION TYPE: XR hand complete RT DATE OF EXAM: 10/04/2021 COMPARISON: NONE HISTORY: Fall. Pain. TECHNIQUE: 3 views FINDINGS: Metacarpals are intact. There is spurring at the first carpometacarpal joint. I see no frac ture nor dislocation. Joint spaces are normal. IMPRESSION: Negative right hand exam. No fracture seen
[2021-10-04 20:50] VITALS: BP 127/66; PULSE 70; RESP 16
== END 2021-10-04 20:55 | disposition home or self-care (01) ==
LOC: EC 18:17
DX: S09.90XA Unspecified injury of head, initial encounter (principal); M79.601 Pain in right arm; E78.5 Hyperlipidemia, unspecified; K21.9 Gastro-esophageal reflux disease without esophagitis; E03.9 Hypothyroidism, unspecified; Z88.5 Allergy status to narcotic agent; Z88.0 Allergy status to penicillin; Z79.899 Other long term (current) drug therapy; Z79.890 Hormone replacement therapy; W18.09XA Striking against other object with subsequent fall, initial encounter
CPT/HCPCS: 73060; 73090; 73130; 72125; 70450; 99284; 96372; J1170

== ENCOUNTER → 2023-01-26 | Outpatient (CLI) | payer OTHER ==
--- NOTE | 2023-01-29 18:38 | MM ---
Reason for Exam: Screening (asymptomatic). Last mammogram was performed 1 year(s) and 11 month(s) ago. Patient History: Menarche at age 13. First Full-Term at age 22. Left ovary removed at age 35. Right ovary removed at age 35. Hysterectomy at age 35. Postmenopausal. Estrogen, starting at age 36 for 21 years. Hormonal Contraceptives for 6 months. Risk Values: Shell 5 year model risk: 1.4%. NCI Lifetime model risk: 7.2%. Prior Study Comparison: 12/28/2017 Bilateral Screening Mammogram, [facility]. 02/07/2019 Bilateral Screening Mammogram, [facility]. 02/17/2021 Bilateral Screening Mammogram, [facility]. Tissue Density: There are scattered fibroglandular densities. Findings: Analyzed By CAD. Pattern appears symmetrical and stable. No suspicious groups of microcalcifications, spiculated or lobular masses, architectural distortion or other secondary signs of malignancy are mammographically apparent. Overall Assessment: Benign, BI-RAD 2 Management: Screening Mammogram of both breasts in 1 year. A negative mammogram report should not preclude additional follow up of suspicious palpable abnormalities. Patient should continue monthly self breast exam. A clinical breast exam by your physician is recommended on an annual basis and results should be correlated with mammographic findings. Electronically signed and approved by: Hong Porter D.O. Radiologis
== END | disposition home or self-care (01) ==
LOC: RADMAMWWP 15:02
PROVIDERS: ATTEND Family Medicine
DX: Z12.31 Encounter for screening mammogram for malignant neoplasm of breast (principal); Z78.0 Asymptomatic menopausal state
CPT/HCPCS: 77063; 77067

== ENCOUNTER → 2023-03-26 | Outpatient (CLI) | payer OTHER ==
[2023-03-26 16:30] LABS: ALT 36 U/L (8-44); AST 31 U/L (13-35); Albumin 4.2 d/dL (3.8-4.9); Albumin/Globulin Ratio 1.68 Ratio (1.60-3.17); Alkaline Phosphatase 95 U/L (41-126); Blood Urea Nitrogen 12.1 mg/dL (9.0-27.0); Calcium 9.2 mg/dL (8.7-10.3); Carbon Dioxide 27.9 mmol/L (21.6-31.8); Chloride 106 mmol/L (96-109); Chol/HDL Ratio 2.82 Ratio; Globulin 2.5 d/dL (1.6-3.3); Glucose 104 mg/dL (70-110); LDL Cholesterol,Calculated 90.7 mg/dL (0.0-131.0); Potassium 4.8 mmol/L (3.5-5.5); Sodium 143 mmol/L (135-145); Total Bilirubin 0.6 mg/dL (0.3-1.2); Total Protein 6.7 d/dL (6.2-8.2)
[2023-03-26 16:48] LABS: HCT 42.9 % (37.2-46.3); HGB 13.7 d/dL (12.0-15.0); MCH 29.8 pg (27.0-32.0); MCHC 31.9 d/dL (32.0-37.0); MCV 93.5 FL (80.0-97.0); Mean Platelet Volume 11.2 FL (9.5-12.2); NRBC Per 100 WBC 0 X 10*3/uL (0.00-0.01); Platelet Count 245 X 10*3/uL (140-440); RBC 4.59 X 10*6/uL (4.10-5.20); RDW 13.2 % (11.5-14.5); WBC 6.33 X 10*3/uL (4.50-10.00)
[2023-03-26 20:00] LABS: Gliadin AB IgA, Deaminated Negative (Negative); Gliadin AB IgA, Unit <0.5 U/mL; Gliadin AB IgG, Deaminated Negative (Negative); Gliadin AB IgG, Unit <0.4 U/mL
== END | disposition home or self-care (01) ==
LOC: LABWHC1 11:12
PROVIDERS: ATTEND Nurse Practitioner Family
DX: Z00.01 Encounter for general adult medical examination with abnormal findings (principal); K52.9 Noninfective gastroenteritis and colitis, unspecified; E55.9 Vitamin D deficiency, unspecified
CPT/HCPCS: 36415; 80053; 80061; 82306; 83516; 84443; 84481; 85027

== ENCOUNTER → 2024-01-28 | Outpatient (CLI) | payer OTHER ==
--- NOTE | 2024-01-28 19:27 | MM ---
Reason for Exam: Screening (asymptomatic). Last screening mammogram was performed 12 month(s) ago. Patient History: Menarche at age 13. First Full-Term at age 22. Left ovary removed at age 35. Right ovary removed at age 35. Hysterectomy at age 35. Postmenopausal. Estrogen, starting at age 36 for 21 years. Hormonal Contraceptives for 6 months. Risk Values: Shell 5 year model risk: 1.5%. NCI Lifetime model risk: 7.0%. Prior Study Comparison: 02/07/2019 Bilateral Screening Mammogram, [facility]. 02/17/2021 Bilateral Screening Mammogram, [facility]. 01/26/2023 Bilateral MG 3D screening mammo w/cad, [facility]. Tissue Density: There are scattered areas of fibroglandular density. Findings: Analyzed By CAD. There is no suspicious group of microcalcifications or new suspicious mass in either breast. Overall Assessment: Negative, BI-RAD 1 Management: Screening Mammogram of both breasts in 1 year. . Patient should continue monthly self-breast exams. A clinical breast exam by your physician is recommended on an annual basis. This exam should not preclude additional follow-up of suspicious palpable abnormalities. Note on Shell scores and lifetime risk: 1. A Shell score greater than 3% is considered moderate risk. If this is the case, consider specialist referral to assess eligibility for a risk reducing agent. 2. If overall lifetime risk for the development of breast cancer is 20% or higher, the patient may qualify for future screening with alternating mammogram and breast MRI. Electronically signed and approved by: Theresa Mart M.D. Radiologist
== END | disposition home or self-care (01) ==
LOC: RADMAMWWP 10:58
PROVIDERS: ATTEND Family Medicine
DX: Z12.31 Encounter for screening mammogram for malignant neoplasm of breast (principal); Z78.0 Asymptomatic menopausal state
CPT/HCPCS: 77063; 77067

== ENCOUNTER → 2024-03-27 | Outpatient (CLI) | payer OTHER ==
[2024-03-27 15:08] LABS: HCT 45.9 % (37.2-46.3); HGB 15.2 g/dL (12.0-15.0); MCH 30.2 pg (27.0-32.0); MCHC 33.1 g/dL (32.0-37.0); MCV 91.1 FL (80.0-97.0); Mean Platelet Volume 11.4 FL (9.5-12.2); NRBC Per 100 WBC 0 X 10*3/uL (0.00-0.01); Platelet Count 260 X 10*3/uL (140-440); RBC 5.04 X 10*6/uL (4.10-5.20); WBC 6.67 X 10*3/uL (4.50-10.00)
[2024-03-27 15:49] LABS: ALT 26 U/L (8-44); AST 25 U/L (13-35); Albumin 4.5 g/dL (3.8-4.9); Albumin/Globulin Ratio 1.73 Ratio (1.60-3.17); Alkaline Phosphatase 113 U/L (41-126); BUN/Creat Ratio 10.67 Ratio (12.00-20.00); Blood Urea Nitrogen 12.8 mg/dL (9.0-27.0); Calcium 9.5 mg/dL (8.7-10.3); Carbon Dioxide 25.4 mmol/L (21.6-31.8); Chloride 102 mmol/L (96-109); Chol/HDL Ratio 4.82 Ratio; Globulin 2.6 g/dL (1.6-3.3); Glucose 108 mg/dL (70-110); LDL Cholesterol,Calculated 235.5 mg/dL (0.0-131.0); Potassium 4.5 mmol/L (3.5-5.5); Sodium 140 mmol/L (135-145); T4, Free (Free Thyroxine) 1.16 ng/dL (0.80-1.80); Total Bilirubin 0.7 mg/dL (0.3-1.2); Total Protein 7.1 g/dL (6.2-8.2)
== END | disposition home or self-care (01) ==
LOC: LABWHC1 12:35
PROVIDERS: ATTEND Family Medicine
DX: Z00.01 Encounter for general adult medical examination with abnormal findings (principal); E03.9 Hypothyroidism, unspecified
CPT/HCPCS: 36415; 80053; 80061; 84439; 84443; 84481; 85027

== ENCOUNTER → 2024-04-16 | Outpatient (CLI) | payer OTHER ==
[2024-04-16 15:04] VITALS: BP 123/70; PULSE 89; RESP 16; TEMP 98.6
--- NOTE | 2024-04-16 15:23 | P.SLEEP ---
History of Present Illness DATE: 04/16/2024 CONSULTATION/NEW PATIENT EVALUATION HISTORY OF PRESENT ILLNESS/SLEEP-WAKE EVALUATION: 63-year-old lady had been e valuated in the sleep center for possible obstructive sleep apnea hypopnea syndrome. Patient has history of obstructive sleep apnea diagnosed about 20 years ago in another institution, she was on treatment with CPAP, then lost weight and stop treatment. For the last years she increased her weight again. SLEEP SCHEDULE: Usually sleep schedule from 10 PM to 7:30 AM on weekdays and from 10 PM to 8 AM on weekend. FALLING ASLEEP: Sometimes patient has difficulties to fall asleep, used to read in bedroom. DURING SLEEP: Patient usually sleeps on the back and side position with loud snoring and awakenings from sleep 3 times with nocturia. Positive history of dry mouth, heartburn, sweating and restless leg symptoms. No history of hypnogogical hallucinations, sleep paralysis, or cataplexy. DURING THE DAY/WAKE STATE: In the morning patient wake up tired, has difficulties with paying attention, concentration, irritability, anxiety and claustrophobia. [place] sleepiness scale is 10. Patient may take nap at the afternoon time. PAST MEDICAL HISTORY: Hypothyroidism, acid reflux, anxiety. PAST SURGICAL HISTORY: Total hysterectomy, tonsillectomy, lap band surgery. MEDICATIONS: Please see below. SOCIAL HISTORY: Please see below. FAMILY HISTORY: Hypertension, arthritis, headaches, sleep apnea. REVIEW OF SYSTEMS: Loud snoring, multiple awakenings from sleep, sleepiness during the day. No fevers. No double vision. No recent chest pain. No shortness of breath. No abdominal pain. No bleeding episodes. No blood in urine. No seizure episodes. PHYSICAL EXAMINATION: GENERAL: A pleasant patient without any distress. VITAL SIGNS: Please see below, weight 237 pounds, BMI 40.2. HEENT: PERRLA, EOMI. Evaluation of oropharynx showed tongue protrudes midline, low position of soft palate Mallampati 4. NECK: Supple. No JVD. Thyroid is not palpable. 15 inches in circumference. LUNGS: Clear to percussion and to auscultation. Good air exchange. No wheezing or rhonchi. HEART: S1, S2 regular. No murmurs, gallops or rubs. ABDOMEN: Soft and nontender. Bowel sounds are present. No organomegaly appreciated. EXTREMITIES: No clubbing or cyanosis. STRINGS TEACHER: Awake, alert, and oriented x3. Cranial nerves 2 to 7 intact. There is no fasciculation or atrophy noted. No focal deficits observed. ASSESSMENT: 1. Loud snoring, multiple awakenings from sleep, extremely low position of soft palate Mallampati 4, sleepiness [place] Sleepiness Scale is 10, history of obstructive sleep apnea hypopnea syndrome in the past. Obstructive sleep apnea hypopnea syndrome.. 2. Obesity, BMI 40.2. 3. Hypothyroidism. 4. Acid reflux. 5 anxiety. 6 . Status post tonsillectomy. 7. Status post total hysterectomy. 8. Status post lap band surgery. PLAN: 1. Polysomnography for evaluation of patient's breathing during sleep. 2. Following plan after reading sleep study. 3. Preferable position during sleep on the side. 4. No driving if patient feels any sleepiness. Patient is aware of civil and criminal liability for unsafe driving. 5. Sleep hygiene with regular sleep time for at least 7.5-8 hours. 6. Watching and losing weight. Thank you very much for referring this patient for consultation. Sincerely, Naresh Lacey MD, PhD, FAASM. Diplomat of [place] [employer], Sleep Medicine Board by [place] [employer] [place] [employer] Order Entry Administrator of [facility] [place] cc: Yimi Mejia MD Past Medical History Past Medical History: GERD/Reflux, Hyperlipidemia, Osteoarthritis (OA), Pulmonary Embolus (PE), Sleep Apnea/CPAP/BIPAP, Thyroid Disorder Additional Past Medical History / Comment(s): Hx of sleep apnea (resolved with wt loss), migraines, hypothyroidism. PE filomena 06/2019. Having trouble swallowing, food getting stuck. History of Any Multi-Drug Resistant Organisms: None Reported Past Surgical History: Bariatric Surgery, Hysterectomy, Joint Replacement, Orthopedic Surgery, Tonsillectomy Additional Past Surgical History / Comment(s): Right knee replacement, Lap Band (band was replaced 08/06/17), Panniculectomy, bilateral carpal tunnel, knee arthroscopy, colonoscopy. Band Removed 10/21/2018. Past Anesthesia/Blood Transfusion Reactions: No Reported Reaction Past Psychological History: Anxiety Smoking Status: Never smoker Past Alcohol Use History: None Reported Additional Past Alcohol Use History / Comment(s): SMOKED LESS THAN 1 PPD., QUIT 16 YRS AGO (2000). SMOKED APPROX 16 YEARS. Past Drug Use History: None Reported - Past Family History Sister(s) Family Medical History: Deep Vein Thrombosis (DVT) Brother(s) Family Medical History: Deep Vein Thrombosis (DVT) Father Family Medical History: Deep Vein Thrombosis (DVT) Mother Family Medical History: Deep Vein Thrombosis (DVT) Medications and Allergies Home Medications Medication Instructions Recorded Confirmed Type Sertraline [Zoloft] 100 mg PO BID 09/05/16 04/16/24 History Levothyroxine Sodium [Synthroid] 88 mcg PO DAILY 07/14/19 04/16/24 History Omeprazole 40 mg PO DAILY 10/04/21 04/16/24 History Vit D3 (Unk) 1 tab PO DAILY 04/02/23 04/16/24 History buPROPion HCL [buPROPion HCL Xl] 150 mg PO DAILY 04/16/24 04/16/24 History Allergies Allergy/AdvReac Type Severity Reaction Status Date / Time codeine Allergy Chest Pain Verified 04/04/23 13:50 Penicillins Allergy Rash/Hives Verified 04/04/23 13:50 Physical Exam Vitals: Vital Signs Temp Pulse Resp BP Pulse Ox 04/16/24 15:00 98.6 F 89 16 123/70 93 L Intake and Output 04/16/24 04/16/24 04/16/24 06:59 14:59 22:59 Other: Weight 107.501 kg Sleep Note - Sleep Data ESS Total: 10 - Sleep Note Sleep Note: Temperature: 98.6 F Pulse Rate: 89 Respiratory Rate: 16 Blood Pressure: 123/70 SpO2: 93 Height: 5 ft 4.5 in Weight: 107.501 kg BMI: Neck Circumference: 15
== END ==
LOC: 3 N SLEEP 14:38
PROVIDERS: ATTEND Internal Medicine
DX: G47.33 Obstructive sleep apnea (adult) (pediatric) (principal); E66.9 Obesity, unspecified; E03.9 Hypothyroidism, unspecified; K21.9 Gastro-esophageal reflux disease without esophagitis; F41.9 Anxiety disorder, unspecified; Z98.890 Other specified postprocedural states; Z90.89 Acquired absence of other organs; Z90.710 Acquired absence of both cervix and uterus; Z98.84 Bariatric surgery status; Z88.5 Allergy status to narcotic agent; Z88.0 Allergy status to penicillin; Z68.41 Body mass index [BMI] 40.0-44.9, adult; Z87.891 Personal history of nicotine dependence
CPT/HCPCS: 99211

== ENCOUNTER → 2024-06-03 | Outpatient (CLI) | payer OTHER ==
--- NOTE | 2024-06-04 15:46 | P.PCN ---
Description of Procedure: CLINICAL: A home sleep apnea test has been done for confirmation of possible obstructive sleep apnea-hypopnea syndrome. DESCRIPTION OF PROCEDURE: RESULTS: Recording time was 12 hours 0 minutes. Evaluation time was 8 hours 54 minutes. Evaluation time is sufficient for making conclusion about results of the test. Raw data of sleep recording has been reviewed and is adequate. Respiratory channel showed 168 apneas and 287 hypopneas. Apnea-hypopnea index was 51.1 per hour. Pulse rate in the range between minimum 43, maximum 237, average 61 by computer calculation. Lowest desaturation was 79%. IMPRESSION: 1. Severe Obstructive Sleep Apnea Hypopnea Syndrome. Please see other impressions from consultation. PLAN: 1. The patient should have PAP titration for correction of respiratory abnormallities during sleep. 2. Sleep hygiene with regular time in bed for at least 8 hours. 3. Watching and losing weight. 4. No driving if feeling any sleepiness. Thank you very much for allowing me to participate in the management of your patient. Sincerely, Naresh Lacey MD, PhD, FAASM Diplomat of [employer] Sleep Medicine Board of [place] [employer] Risk Consulting Treasury Director of [facility] [place] cc: Roberto Geller MD
== END | disposition home or self-care (01) ==
LOC: 3 N SLEEP 10:53
PROVIDERS: ATTEND Internal Medicine
DX: G47.33 Obstructive sleep apnea (adult) (pediatric) (principal); Z88.5 Allergy status to narcotic agent; Z88.0 Allergy status to penicillin; Z87.891 Personal history of nicotine dependence

== ENCOUNTER 2024-09-01 19:48 | Outpatient (CLI) | payer OTHER ==
--- NOTE | 2024-09-03 12:41 | P.PCN ---
Description of Procedure: CLINICAL: Titration with positive air pressure has been done for correction of respiratory abnormalities during sleep. DESCRIPTION OF PROCEDURE: The standard montage for clinical polysomnography included the electroencephalogram, the electrocardiogram, the mentalis surface electromyography and Lead II cardiography. The respiratory battery consisted of measurements of nasal /buccal air flow, pressure transducer measurements from the nose, thoracic and /or abdominal effort and intercostal surface electromyography. Video monitoring has been done to check for any parasomnia events. Nocturnal oxyhemoglobin saturations were obtained by finger oximetry. Step-cao titration with positive airway pressure was utilized to control respiratory events. Raw data of sleep recording has been reviewed and is adequate. RESULTS: Sleep efficiency was significantly decreased to 68.1%. Latency to sleep onset was significantly prolonged to 55.0 minutes.]. Sleep architecture showed stage N1 significantly increased to 19.5%, Delta sleep was absent 0%, REM sleep was absent 0%. Heart rate was minimum 58 BPM, maximum 66 BPM, average 62 BPM. EMG showed 0 periodic limb movements per hour. PAP titration have been done with CPAP up to the pressure 15 cm H2O. Patient had problems with CPAP, switched to BPAP. BPAP titrated up to 24/20 cm H2O. The best results were at the pressure BiPAP 24/20 cm H2O. Apnea hypopnea index reduced to 11.8. Titration have been done with nasal pillow mask AirFit P10 small size. IMPRESSION: 1. Obstructive sleep apnea hypopnea syndrome improved with PAP treatment. 2. No significant periodic limb movements have been documented. Please see other impressions from consultation. PLAN: 1. The patient will have treatment with positive air pressure equipment with the level of pressure AutoBiPAP with maximal inspiratory pressure 24 and minimal expiratory pressure 6, pressure support 4 cm H2O and should use it every night for the whole night. 2. Watching and losing weight. 3. Sleep hygiene with regular time in bed for at least 8 hours. 4. No driving if feeling any sleepiness. 5. I will see the patient for follow up visit to explain the results of the test, recommendations, check compliance with treatment and make any necessary adjustment related to mask fitting, pressure and humidification. Thank you very much for allowing me to participate in the management of your patient. Sincerely, Naresh Lacey MD, PhD, FAASM Diplomat of [place] [employer] Sleep Medicine Board of [place] [employer] Control Specialist of [facility] [place] cc: Yimi Mejia MD
== END 2024-09-02 05:55 | disposition home or self-care (01) ==
LOC: 3 N SLEEP 19:48
PROVIDERS: ATTEND Internal Medicine
DX: G47.33 Obstructive sleep apnea (adult) (pediatric) (principal); Z88.0 Allergy status to penicillin; Z88.5 Allergy status to narcotic agent; Z87.891 Personal history of nicotine dependence
CPT/HCPCS: 95811

== ENCOUNTER → 2024-12-03 | Outpatient (CLI) | payer BC ==
[2024-12-03 14:43] VITALS: BP 136/85; PULSE 80; RESP 16; TEMP 98.2
--- NOTE | 2024-12-03 17:06 | P.PROGSL ---
Subjective DATE: 12/03/2024 FOLLOW UP VISIT. Patient with obstructive sleep apnea hypopnea syndrome return to sleep center for follow-up visit. Recently patient had sleep study which documented obstructive sleep apnea hypopnea syndrome. Patient was initiated on PAP therapy and today is first visit after treatment was started. Patient was able to use PAP equipment most of the nights. Sometimes patients feels that the pressure is too high. [place] sleepiness scale is close to the border 9. I checked information from PAP unit. PAP unit pressure maximal inspiratory pressure 24, minimal expiratory pressure 6, pressure support 4, average pressure 13.8/12.6 cm H2O. Usage is 77% and 70% for more then 4 hours, average 7.5 hours per night. Leak is in normal range 5.1 l/m. Apnea Hypopnea Index is increased to 15.1, but significantly improved comparing with results of home sleep apnea test, when apnea hypopnea index was 51.1. MEDICATIONS: See below During physical exam: GENERAL: A pleasant patient without any distress. VITAL SIGNS: Please see below, weight 228 pounds. HEENT: PERRLA, EOMI.low position of soft palate, Mallapati 4 . NECK: Supple. No JVD. LUNGS: Clear to percussion and to auscultation. Good air exchange. No wheezing or rhonchi. HEART: S1, S2 regular. ABDOMEN: Soft and nontender.[] EXTREMITIES: No clubbing or cyanosis. CONDUCTOR ORCHESTRA: Awake, alert, and oriented x3. No focal deficit. Impressions: 1. Obstructive and central, possibly complex sleep apnea-hypopnea syndrome. Patient demonstrated good compliance with treatment, benefiting from treatment, but apnea hypopnea index still above normal range and include significant amount of central apneas. 2. Obesity. 3. Hypothyroidism. 4. Acid reflux. 5. Anxiety. 6. Status post tonsillectomy. 7. Status post lap band surgery. 8. Status post total hysterectomy. Plan: 1. Continue using PAP equipment every night for the whole night. I decreased maximal inspiratory pressure down to 19 cm of water for patient comfort and possibly to decrease amount of central apneas. 2. To change air filter at least 1-2 times per month. 3. PAP unit should stay lower then position of the head. 4. Advised patient to remove all remaining water from humidifier canister daily and make it dry after each usage. Refill canister with fresh distilled water before each usage. 5. Sleep hygiene with regular time in bed for at least 8 hours. 6. Precautions related to driving. No driving if feel any sleepiness. 7. I will maintain prescription for PAP supplies including mask, tube, filters. 8. Follow up visit in 1 months. 9. Watching and losing weight. Thank you very much for allowing me to participate in the management of your patient. Naresh Lacey MD, PhD, FAASM. Diplomat of [place] [employer], Sleep Medicine Board by [employer] Competitive Intelligence Analyst of [facility] [place] Objective - Vital Signs Vital Signs: Vital Signs Temp 98.2 F 12/03/24 14:42 Pulse 80 12/03/24 14:42 Resp 16 12/03/24 14:42 BP 136/85 12/03/24 14:42 Pulse Ox 96 12/03/24 14:42 FiO2 Home Medications: Home Medications Medication Instructions Recorded Confirmed Type Sertraline [Zoloft] 100 mg PO BID 09/05/16 04/16/24 History Levothyroxine Sodium [Synthroid] 88 mcg PO DAILY 07/14/19 04/16/24 History Omeprazole 40 mg PO DAILY 10/04/21 04/16/24 History Vit D3 (Unk) 1 tab PO DAILY 04/02/23 04/16/24 History buPROPion HCL [buPROPion HCL Xl] 150 mg PO DAILY 04/16/24 04/16/24 History
== END ==
LOC: 3 N SLEEP 14:06
PROVIDERS: ATTEND Internal Medicine
DX: G47.33 Obstructive sleep apnea (adult) (pediatric) (principal); G47.31 Primary central sleep apnea; E66.9 Obesity, unspecified; E03.9 Hypothyroidism, unspecified; K21.9 Gastro-esophageal reflux disease without esophagitis; F41.9 Anxiety disorder, unspecified; Z90.89 Acquired absence of other organs; Z90.710 Acquired absence of both cervix and uterus; Z98.84 Bariatric surgery status; Z88.0 Allergy status to penicillin; Z88.5 Allergy status to narcotic agent; Z87.891 Personal history of nicotine dependence
CPT/HCPCS: 99212